=== PATIENT | female | born 2005 | race Caucasian/White ===

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

== ENCOUNTER 2025-04-09 11:35 | Inpatient (IN) | payer MEDICAID, SELFPAY ==
[2025-04-09] VITALS (63 sets, daily range): BP systolic 114–134; BP diastolic 63–87; PULSE 49–94; RESP 13–20; TEMP 36.3–37.6; O2SAT 97–100; BMI 25.1
--- OUTSIDE RECORDS SUMMARY | 2025-04-09 10:19 | XMS RPT_ITS | CCD ---
Author Organization [facility] Care Team Providers Care Community Engagement Leader Name Role Phone RADHA BARAJAS Attending Unavailable REFERRED, SELF Referring Unavailable CAITLYN BRUNNER Primary Care Unavailable CAITLYN BRUNNER Attending Unavailable REFERRED, SELF Referring Unavailable CAITLYN BRUNNER Primary Care Unavailable Unavailable Primary Care Provider Unavaillópez Haley MOLD CARPENTER, Minda Primary Care UnavailNurys Roberson Attending Unavailable [place] MOLD CARPENTER, [place] Primary Care UnavailJosh Pretty Attending Unavailable Nurys Allan Attending Unavailable [place] MOLD CARPENTER, [place] Primary Care UnavailGINGER Suggs Attending Unavailable WANDA GARDINER Attending Unavailable WANDA GARDINER Attending Unavailable MUMTAZ MORALES Referring Unavailable MUMTAZ MORALES Attending Unavailable KATE CASTANON Attending Unavailable VALERIA, WANDA Attending Unavailable KATE CASTANON Referring Unavailable KATE CASTANON Referring Unavailable KATE CASTANON Attending Unavailable SELF Referring Unavailable DESTINI LANGLEY Attending Unavailable SELF Referring Unavailable Medications Current Medications Medication Drug Class(es) Dates Sig (Normalized) Sig (Original) aspirin 81 mg delayed release oral tablet (15 sources) Platelet Aggregation Inhibitor, Nonsteroidal Anti-inflammatory Drug Start: 12-06-2024 End: 12-06-2024 take 1 tablet by mouth once daily aspirin, enteric coated (ECOTRIN LOW STRENGTH) 81 mg EC tablet Indications: with uncertain dates, antepartum (HCC) Take 1 tablet by mouth once daily. 90 tablet 3 12/06/2024 Active Lwzigdva-Bm-Ubt-Fe -FA tab (14 sources) Start: 12-06-2024 take 1 tablet by mouth once daily Iawgjvwu-Ik-Xvx-F e-FA tab Take 1 tablet by mouth once daily. 30 tablet 4 12/06/2024 Active Problems Active Problems Problem Classification Problem Date Documented Da te Episodic/Chronic Bacterial infection; unspecified site (7 sources) Bacteria present; Translations: [Streptococcus, group B, as the cause of diseases classified elsewhere] Onset: 03-23-2025 03-23-2025 Episodic Cardiac and circulatory congenital anomalies (19 sources) Muscular ventricular septum defect ; Translations: [Ventricular septal defect] Onset: 12-15-2024 12-15-2024 Chronic Immunizations and screening for infectious disease (1 source) Vaccination needed; Translations: [Encounter for immunization] 01-25-2025 Episodic Other complications of ; puerperium affecting management of mother (2 sources) Abnormality of heart; Translations: [Ventricular septal defect (VSD) of fetus in [place] , antepartum] 12-14-2024 Episodic Other complications of ; puerperium affecting management of mother (1 source) Suspected disorder; Translations: [Maternal care for (suspected) abnormality and damage, unspecified, not applicable or unspecified] 01-11-2025 Episodic Other complications of ; puerperium affecting management of mother (1 source) Maternal care for (suspected) abnormality and damage, unspecified, not applicable or unspecified; Translations: [Suspected anomaly, antepartum, single or unspecified fetus (HCC)] Onset: 03-02-2025 Episodic Other complications of (20 sources) High risk ; Translations: [Supervision of other high risk pregnancies, second trimester] Onset: 12-06-2024 12-06-2024 Episodic Other complications of (2 sources) Teenage ; Translations: [Supervision of other high risk pregnancies, second trimester] 12-06-2024 Episodic Other complications of (1 source) Injury, poisoning and certain other consequences of external causes complicating , second trimester; Translations: [Injury, poisoning and certain other consequences of external causes complicating , second trimester] Onset: 12-23-2024 Episodic Other complications of (5 sources) Uterine size for dates discrepancy; Translations: [Uterine size-date discrepancy, third trimester] 03-21-2025 Episodic Other complications of (1 source) Supervision of high risk , unspecified, third trimester; Translations: [Supervision of high risk in third trimester (HCC)] Onset: 03-23-2025 Episodic Other complications of (1 source) Uterine size-date discrepancy, third trimester; Translations: [Uterine size-date discrepancy, third trimester ([facility])] Onset: 03-30-2025 Episodic Other complications of (1 source) Supervision of other high risk pregnancies, second trimester; Translations: [High risk teen in second trimester ([facility])] Onset: 01-25-2025 Episodic Other screening for suspected conditions (not mental disorders or infectious disease) (4 sources) Patient encounter status; Translations: [Encounter for screening for malformations] Onset: 01-25-2025 12-14-2024 Episodic Residual codes; unclassified (1 source) Gestation period, 21 weeks; Translations: [21 weeks gestation of ] 12-06-2024 Episodic Residual codes; unclassified (2 sources) Gestation period, 22 weeks; Translations: [22 weeks gestation of ] 12-14-2024 Episodic Residual codes; unclassified (1 source) Gestation period, 28 weeks; Translations: [28 weeks gestation of ] 01-25-2025 Episodic Residual codes; unclassified (1 source) 22 weeks gestation of ; Translations: [22 weeks gestation of ([facility])] Onset: 03-01-2025 Episodic Residual codes; unclassified (1 source) Gestation period, 35 weeks; Translations: [35 weeks gestation of ] 03-16-2025 Episodic Residual codes; unclassified (3 sources) Gestation period, 36 weeks; Translations: [36 weeks gestation of ] 03-21-2025 Episodic Residual codes; unclassified (1 source) Gestation period, 37 weeks; Translations: [37 weeks gestation of ] 03-30-2025 Episodic Residual codes; unclassified (1 source) 37 weeks gestation of ; Translations: [37 weeks gestation of ([facility])] Onset: 03-30-2025 Episodic Residual codes; unclassified (1 source) 36 weeks gestation of ; Translations: [36 weeks gestation of ([facility])] Onset: 03-22-2025 Episodic Residual codes; unclassified (1 source) 35 weeks gestation of ; Translations: [35 weeks gestation of ([facility])] Onset: 03-16-2025 Episodic Residual codes; unclassified (1 source) 33 weeks gestation of ; Translations: [33 weeks gestation of ([facility])] Onset: 03-02-2025 Episodic Residual codes; unclassified (1 source) Gestation period, 38 weeks; Translations: [38 weeks gestation of ] 04-08-2025 Episodic Unclassified (1 source) Ventricular septal defect (VSD) of fetus in [place] , antepartum ([facility]); Translations: [Ventricular septal defect (VSD) of fetus in [place] , antepartum ([facility])] Onset: 03-01-2025 Past or Other Problems Problem Classification Problem Date Documented Da te Episodic/Chronic Administrative/social admission (1 source) Person with feared health complaint in whom no diagnosis is made; Translations: [Person with feared health complaint in whom no diagnosis is made] Onset: 07-08-2024 Episodic Other complications of (17 sources) Late entry into care; Translations: [Supervision of with insufficient care, unspecified trimester] Onset: 12-06-2024 12-06-2024 Episodic Other complications of (13 sources) Rubella non-immune; Translations: [Supervision of other high risk pregnancies, unspecified trimester] Onset: 12-08-2024 12-08-2024 Episodic Other complications of (1 source) Supervision of with insufficient care, unspecified trimester; Translations: [Late care ([facility])] Onset: 12-06-2024 Episodic Other and delivery including normal (3 sources) with uncertain dates; Translations: [Encounter for supervision of normal , unspecified, unspecified trimester] Onset: 12-14-2024 12-06-2024 Episodic Residual codes; unclassified (1 source) 21 weeks gestation of ; Translations: [21 weeks gestation of ] Onset: 12-06-2024 Episodic Sprains and strains (1 source) Strain of muscle, fascia and tendon of lower back, initial encounter; Translations: [Strain of muscle, fascia and tendon of lower back, initial encounter] Onset: 06-28-2024 Episodic Unclassified (1 source) Patient encounter status 12-14-2024 Results Test Name Value Interpretation Reference Range Facil ity URINE OB DIP B/Oon 5 Glucose Ql (U) Negative Neg mg/dL [facility] Interpretation and review of laboratory results Normal [facility] Protein.monoclonal (U) [Mass/Vol] trace Neg mg/dL [facility] URINE OB DIP B/Oon 5 Glucose Ql (U) Negative Neg mg/dL [facility] Protein.monoclonal (U) [Mass/Vol] trace Neg mg/dL [facility] Examination level ultrasound on 03-22-2025 [facility] Radiology Study observation (narrative) [facility] ROUTINE, GROUP B ST REPTOCOCCUS BY PCRon 03-21-2025 ROUTINE, GROUP B STREPTOCOCCUS BY PCR Detected Abnormal [facility] Comment on above: Performed By: #### G BPCR ####[facility] LABCLIA [id number] [address] [place] URINE OB DIP B/Oon 5 Glucose Ql (U) Negative Neg mg/dL [facility] Interpretation and review of laboratory results Normal [facility] Protein.monoclonal (U) [Mass/Vol] Negative Neg mg/dL [facility] URINE OB DIP B/Oon 5 Glucose Ql (U) Negative Neg mg/dL [facility] Interpretation and review of laboratory results Normal [facility] Protein.monoclonal (U) [Mass/Vol] Negative Neg mg/dL [facility] CNPNon 03-08-2025 CNPN Telephone (OGFVWE) DAMON GARZA ([id number]) 5 F Date Time Provider Department 03/08/25 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 - Gtybqtot-Ez-Nsj-Fe-FA tab Take 1 tablet by mouth once daily. Problem List As Of Date 03/08/2025 Noted Resolved Encounter for supervision of high risk pregnanc*12/06/2024 Late care [O09.30] 12/06/2024 Rubella non-immune status, antepartum [O09.899,*12/08/2024 Muscular ventricular septal defect (HCC) [Q21.0]12/15/2024 Encounter Status:Closed by DANNA OLIVERA on 03/08/25 [facility] 03-01-2025 GABRIELLAN Telephone (OBGYWM) DAMON GARZA ([id number]) 5 F Date Time Provider Department 03/01/25 DESTINI LANGLEY During your visit today, we recorded the following information about you: Martha Araujo RN 03/01/2025 1:11 PM Signed [facility] To KJ to sign. CLAIR Paulino Jennifer, RN 03/04/2025 11:31 AM Signed Faxed. Natalya Pruitt RN Allergies As of Date: 03/01/2025 (No Known Allergies) Date Reviewed: 01/25/2025 Reviewed by: Kayden Acevedo MA - Fully Assessed Reason for Visit: Breast Pump [Other] Prescriptions as of 03/04/2025 - aspirin, enteric coated (ECOTRIN LOW STRENGTH) 81 mg EC tablet Take 1 tablet by mouth once daily. - Vosxistp-Dy-Yxe-Fe-FA tab Take 1 tablet by mouth once daily. Problem List As Of Date 03/01/2025 Noted Resolved Encounter for supervision of high risk pregnanc*12/06/2024 Late care [O09.30] 12/06/2024 Rubella non-immune status, antepartum [O09.899,*12/08/2024 Muscular ventricular septal defect [Q21.0] 12/15/2024 Encounter Status:Closed by NATALYA PRUITT on 03/04/25 Normal [facility] FETALon 03-01-2025 + - -------+-+ Pediatric Cardiology Echocardiogram Report + -------+-+ NAME: DAMON GARZA : 2005 PT ID#: [id number] Age: 19 years Sex: F STUDY DATE: 03/01/2025 12:54:22 PM PRETTY: 04/17/2025 GA: [id number] Image Quality: The images were of adequate diagnostic quality. Referring Physician: Alberto Finch Diagnosing Physician: Ginger Soriano Russian Language Professor: Amy Quinones [facility] 2nd Russian Language Professor: Diagnosis: O35.5OP6Lrdldbgyh abnormality and damage, single fetus or unspecified Procedure Code: 54090, 98933, 66152 Echo, Complete (w/Doppler and color) Exam Location: [facility] (). Indications: Evaluate cardiac anatomy and function Color Doppler was utilized to interrogate the cardiac valves assessed. Spectral Doppler was utilized to determine the flow velocities and pressure gradients reported in this exam. History: Suspected VSD Parameters: Single/Multi: [place] Position: position is cephalic Biometry: Biometry Table: Biparietal Diameter 7.67 cm Abdominal Circumference 27.17 cm Femur Length 6.21 cm Estimated Weight 1668.90 g Vessels: Three-vessel umbilical cord is present. Umbilical artery flow Doppler is normal. Umbilical venous flow Doppler is normal. Ductus Venosus Doppler is normal. Cerebral Artery Doppler is normal. UA S/D 2.4 UA PI 0.83 MCA PI 2.14 Rate and Rhythm: Normal heart rate and rhythm. HR 131 bpm Mechanical OR 93 ms Segmental Anatomy, Cardiac Position and Situs: The segmental anatomy and situs are normal. Normal visceral situs. The heart position is within the left hemithorax (levo position). Levocardia (apex to the left). The aorta is to the right of the pulmonary artery. Segmental anatomy is S,D,S. Systemic Veins: Right superior vena cava is right sided and drains normally to the right atrium. The inferior vena cava is right sided and inserts normally into the right atrium. Pulmonary Veins: At least one pulmonary vein on each side drains to the left atrium. Atria: The right atrium is normal in size. The left atrium is normal in size. Widely patent foramen ovale with normal intrauterine right to left flow. Tricuspid Valve: The tricuspid valve is normal. Tricuspid valve inflow Doppler is biphasic. There is no tricuspid valve regurgitation. Right Ventricle: There is qualitatively normal right ventricular size and wall thickness with normal systolic function. Mitral Valve: The mitral valve is normal. There is no mitral valve regurgitation. Mitral valve inflow Doppler is biphasic. Left Ventricle: Normal left ventricular size and wall thickness with normal systolic function. VSD: There is a suggestion of a very small mid-muscular VSD; in some of the views it does not appear to completely cross the septum. Conotruncal Anatomy: There is normal conotruncal anatomy. RVOT: There is no right ventricular outflow tract obstruction. Pulmonary Valve: The pulmonary valve is normal. There is no pulmonary valve stenosis. There is no pulmonary valve regurgitation. Pulmonary Arteries: The main and branch pulmonary arteries appear normal. The main pulmonary artery is normal. LVOT: There is no left ventricular outflow tract obstruction. Aortic Valve: The aortic valve is normal with no stenosis and no regurgitation. Aorta: Aortic arch is widely patent. Ductus Arteriosus: Ductal arch is widely patent with normal intrauterine right to left flow. Pericardium: There is no pericardial effusion. Measurements: 2D: Z-Score Aortic annulus 6.5 mm 0.21 MV annulus 10.8 mm 1.42 Pulmonary annulus 7.4 mm -0.51 TV annulus 11.2 mm 0.42 Summary 1. There is a suggestion of a very small mid-muscular VSD; in some of the views it does not appear to completely cross the septum. 2. Normal left ventricular size and wall thickness with normal systolic function. 3. Qualitatively normal right ventricular size and wall thickness with normal systolic function. 4. Aortic arch is widely patent. 5. Ductal arch is widely patent with normal intrauterine right to left flow. 6. Normal heart rate and rhythm and normal Dopplers. 7. No pericardial effusion. The results and limitations of the echocardiogram and echocardiography in general, including the inability to exclude ASDs, some VSDs, minor valvar abnormalities, partial anomalous pulmonary venous return, persistent patent ductus arteriosus, and coarctation of the aorta, were explained to the patient. _ Ginger Soriano DO *Electronically signed on 03/01/2025 at 2:16:13 PM Final CC [employer] Image : [id number] See Link below for Image Normal [facility] CBC W Auto Differential pane l (Bld)on 01-25-2025 Basophils (Bld) [#/Vol] 0.05 10*3/uL Normal <0.11 [facility] Comment on above: Order Comment: Speci men Type: BLOOD SPECIMENOrdering Facility: [facility] Address: [address] [place] [address] Performed By: #### 5 7021-8 ####[facility] [id number] [place] [address] [place] Basophils/100 WBC (Bld) 0.6 % Normal [facility] Comment on above: Order Comment: Speci men Type: BLOOD SPECIMENOrdering Facility: [facility] Address: [address] [place] [address] Performed By: #### 5 7021-8 ####[facility] [id number] [place] [address] [place] Differential cell count method Nom (Bld) Auto Normal [facility] Comment on above: Order Comment: Speci men Type: BLOOD SPECIMENOrdering Facility: [facility] Address: [address] [place] [address] Performed By: #### 5 7021-8 ####[facility] [id number] [place] [address] [place] Eosinophils (Bld) [#/Vol] 0.07 10*3/uL Normal <0.46 [facility] Comment on above: Order Comment: Speci men Type: BLOOD SPECIMENOrdering Facility: [facility] Address: [address] [place] [address] Performed By: #### 5 7021-8 ####[facility] [id number] [place] [address] [place] Eosinophils/100 WBC (Bld) 0.8 % Normal [facility] Comment on above: Order Comment: Speci men Type: BLOOD SPECIMENOrdering Facility: [facility] Address: [address] [place] [address] Performed By: #### 5 7021-8 ####[facility] [id number] [place] [address] [place] Erythrocyte distribution width (RBC) [Ratio] 12.0 % Normal 11.5-15.0 [facility] Comment on above: Order Comment: Speci men Type: BLOOD SPECIMENOrdering Facility: [facility] Address: [address] [place] [address] Performed By: #### 5 7021-8 ####[facility] [id number] [place] [address] [place] Hematocrit (Bld) [Volume fraction] 32.6 % Low 36.0-46.0 [facility] Comment on above: Order Comment: Speci men Type: BLOOD SPECIMENOrdering Facility: [facility] Address: [address] [place] [address] Performed By: #### 5 7021-8 ####[facility] [id number] [place] [address] [place] Hemoglobin (Bld) [Mass/Vol] 11.3 g/dL Low 11.5-15.5 [facility] Comment on above: Order Comment: Speci men Type: BLOOD SPECIMENOrdering Facility: [facility] Address: [address] [place] [address] Performed By: #### 5 7021-8 ####[facility] [id number] [place] [address] [place] Immature granulocytes (Bld) [#/Vol] 0.04 10*3/uL Normal <0.10 [facility] Comment on above: Order Comment: Speci men Type: BLOOD SPECIMENOrdering Facility: [facility] Address: [address] [place] [address] Performed By: #### 5 7021-8 ####[facility] [id number] [place] [address] [place] Immature granulocytes/100 WBC (Bld) 0.5 % Normal [facility] Comment on above: Order Comment: Speci men Type: BLOOD SPECIMENOrdering Facility: [facility] Address: [address] [place] [address] Performed By: #### 5 7021-8 ####[facility] [id number] [place] [address] [place] Lymphocytes (Bld) [#/Vol] 1.73 10*3/uL Normal 1.00-4.00 [facility] Comment on above: Order Comment: Speci men Type: BLOOD SPECIMENOrdering Facility: [facility] Address: [address] [place] [address] Performed By: #### 5 7021-8 ####[facility] [id number] [place] [address] [place] Lymphocytes/100 WBC (Bld) 20.1 % Normal [facility] Comment on above: Order Comment: Speci men Type: BLOOD SPECIMENOrdering Facility: [facility] Address: [address] [place] [address] Performed By: #### 5 7021-8 ####[facility] [id number] [place] [address] [place] MCH (RBC) [Entitic mass] 29.6 pg Normal 26.0-34.0 [facility] Comment on above: Order Comment: Speci men Type: BLOOD SPECIMENOrdering Facility: [facility] Address: [address] [place] [address] Performed By: #### 5 7021-8 ####[facility] [id number] [place] [address] [place] MCHC (RBC) [Mass/Vol] 34.7 g/dL Normal 30.5-36.0 [facility] Comment on above: Order Comment: Speci men Type: BLOOD SPECIMENOrdering Facility: [facility] Address: [address] [place] [address] Performed By: #### 5 7021-8 ####[facility] [id number] [place] [address] [place] MCV (RBC) [Entitic vol] 85.3 fL Normal 80.0-100.0 [facility] Comment on above: Order Comment: Speci men Type: BLOOD SPECIMENOrdering Facility: [facility] Address: [address] [place] [address] Performed By: #### 5 7021-8 ####[facility] [id number] [place] [address] [place] Monocytes (Bld) [#/Vol] 0.41 10*3/uL Normal <0.87 [facility] Comment on above: Order Comment: Speci men Type: BLOOD SPECIMENOrdering Facility: [facility] Address: [address] [place] [address] Performed By: #### 5 7021-8 ####[facility] [id number] [place] [address] [place] Monocytes/100 WBC (Bld) 4.8 % Normal [facility] Comment on above: Order Comment: Speci men Type: BLOOD SPECIMENOrdering Facility: [facility] Address: [address] [place] [address] Performed By: #### 5 7021-8 ####[facility] [id number] [place] [address] [place] Neutrophils (Bld) [#/Vol] 6.31 10*3/uL Normal 1.45-7.50 [facility] Comment on above: Order Comment: Speci men Type: BLOOD SPECIMENOrdering Facility: [facility] Address: [address] [place] [address] Performed By: #### 5 7021-8 ####[facility] [id number] [place] [address] [place] Neutrophils/100 WBC (Bld) 73.2 % Normal [facility] Comment on above: Order Comment: Speci men Type: BLOOD SPECIMENOrdering Facility: [facility] Address: [address] [place] [address] Performed By: #### 5 7021-8 ####[facility] [id number] [place] [address] [place] Nucleated RBC (Bld) [#/Vol] 10*3/uL Normal <0.01 [facility] Comment on above: Order Comment: Speci men Type: BLOOD SPECIMENOrdering Facility: [facility] Address: [address] [place] [address] Performed By: #### 5 7021-8 ####[facility] [id number] [place] [address] [place] Nucleated RBC/100 WBC (Bld) [Ratio] 0.0 /100 WBC Normal [facility] Comment on above: Order Comment: Speci men Type: BLOOD SPECIMENOrdering Facility: [facility] Address: [address] [place] [address] Performed By: #### 5 7021-8 ####[facility] HOSPITALNARDALisa [id number] [place] [address] [place] Platelet mean volume (Bld) [Entitic vol] 9.4 fL Normal 9.0-12.7 [facility] Comment on above: Order Comment: Speci men Type: BLOOD SPECIMENOrdering Facility: [facility] Address: [address] [place] [address] Performed By: #### 5 7021-8 ####[facility] [id number] [place] [address] [place] Platelets (Bld) [#/Vol] 296 10*3/uL Normal 150-400 [facility] Comment on above: Order Comment: Speci men Type: BLOOD SPECIMENOrdering Facility: [facility] Address: [address] [place] [address] Performed By: #### 5 7021-8 ####[facility] POINTNARDALILYA [id number] [place] [address] [place] RBC (Bld) [#/Vol] 3.82 10*6/uL Low 3.90-5.20 [facility] Comment on above: Order Comment: Speci men Type: BLOOD SPECIMENOrdering Facility: [facility] Address: [address] [place] [address] Performed By: #### 5 7021-8 ####[facility] HOS[facility]ITALNCLI [id number] [place] [address] [place] WBC (Bld) [#/Vol] 8.61 10*3/uL Normal 3.70-11.00 [facility] Comment on above: Order Comment: Speci men Type: BLOOD SPECIMENOrdering Facility: [facility] Address: [address] [place] [address] Performed By: #### 5 7021-8 ####[facility] [id number] [place] [address] [place] GESTATIONAL GLUCOSE SCREEN, 1-HOUR, 50 GRAM, NON-FASTINGon 01-25-2025 Glucose [Mass/Vol] 100 mg/dL Normal 74-134 [facility] Comment on above: Order Comment: Tom avendaño Type: BLOOD SPECIMENOrdering Facility: [facility] Address: [address] [place] [address] Result Comment: [facility] Congress of Obstetricians and Gynecologists (David/Tiffany) guidelines state a gestational diabetes mellitus positive screen is made, in women not previously diagnosed with overt diabetes, when the 1 hr plasma glucose level is equal to or above 140 mg/dL. The [facility] Studio Data Analyst and Women's [facility] Conrad recommends a 135 mg/dL cutoff. Performed By: #### G LTGST ####[facility] [id number] [place] [address] [place] Reagin and Treponema pallidu m IgG and IgM [Interp]on 01-25-2025 T. pallidum IgG+IgM IA Ql (S) Non-Reactive Normal Nonreactive [facility] Comment on above: Order Comment: Speci men Type: BLOOD SPECIMENOrdering Facility: [facility] Address: [address] [place] [address] Performed By: #### 7 3752-8 ####[facility] LABCLIA [id number] [place] [address] [place] Reagin+T pallidum IgG+IgM Se rPl-Impon 01-25-2025 Reagin and Treponema pallidum IgG and IgM [Interp] Cannot exclude recent Treponemal infection if specimen collected within 7-10 days after appearance of suspect lesions or 2-3 weeks after an exposure. Clinical correlation is required. 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 - Xgbinpuc-Yn-Hyg-Fe-FA tab Take 1 tablet by mouth once daily. Problem List As Of Date 01/13/2025 Noted Resolved Encounter for supervision of high risk pregnanc*12/06/2024 Late care [O09.30] 12/06/2024 Rubella non-immune status, antepartum [O09.899,*12/08/2024 Muscular ventricular septal defect [Q21.0] 12/15/2024 Encounter Status:Closed by DANNA OLIVERA on 01/13/25 Normal [facility] Examination level ultrasound on 12-14-2024 Indication Standard anatomic survey Impression The patient is referred for a standard anatomic survey. - Single, live, intrauterine . - biometry is consistent with the established gestational age. - Muscular ventricular septal defect (VSD) is seen - No other malformations were visualized on a complete standard anatomic survey. - The amniotic fluid volume is normal amount. - The placenta is posterior. - The Transabdominal cervical length measures 32.8 mm with no evidence of funneling or other dynamic changes. - Not all structural malformations can be detected by ultrasound examination. Recommendations echo. If VSD is confirmed, will refer to [facility] for coordination of care Maternal Assessment Height 163 cm Height (ft) 5 ft Height (in) 4 in Physical Exam Initial weight (lb) 126 lb Initial BMI 21.63 kg/m Method Transabdominal ultrasound examination. View: Adequate visualization Drummond . Number of fetuses: 1 Dating GA by prior assessment 22 w + 2 d PRETTY by prior assessment: 04/17/2025 Ultrasound examination on: 12/14/2024 GA by U/S based upon: AC, BPD, Femur, HC GA by U/S 21 w + 4 d PRETTY by U/S: 04/22/2025 Assigned: based on stated PRETTY, selected on 12/14/2024 Assigned GA 22 w + 2 d Assigned PRETTY: 04/17/2025 General Evaluation Cardiac activity present. FHR 135 bpm. movements: present. Presentation: breech Placenta: Placental site: posterior Umbilical cord: Cord vessels: 3 vessel cord. Insertion site: normal insertion Amniotic fluid: Amount of AF: normal amount. MVP 3.7 cm Growth Overview Exam date GA BPD (mm) HC (mm) AC (mm) FL (mm) HL (mm) EFW (g) 12/14/2024 22w 2d 49.1 6% 192.4 27% 164.1 18% 37.9 63% 36.9 67% 443 18% Biometry Standard BPD 49.1 mm 20w 6d 6% Hadlock OFD 70.1 mm 21w 5d 51% Nicolaides HC 192.4 mm 21w 3d 27% Rozina Cerebellum tr 23.7 mm 21w 6d 61% Hill Nuchal fold 5.8 mm AC 164.1 mm 21w 3d 18% Hadlock Femur 37.9 mm 22w 2d 63% Rozina Humerus 36.9 mm 22w 6d 67% Rozina EFW 443 g 21w 4d 18% Hadlock EFW (lb) 1 lb EFW (oz) 0 oz EFW by: Hadlock (HC-AC-FL) Extended Machine Welt Butter 6.9 mm CM 4.3 mm 14% Nicolaides Nasal bone 7.8 mm Extremities / Bony Struc FL / HC 0.20 Other Structures FHR 135 bpm Anatomy Cranium: normal Lateral ventricles: normal Choroid plexus: normal Midline falx: normal Cavum septi pellucidi: normal Cerebellum: normal Cisterna magna: normal Head / Neck Vermis: Normal but not required for a standard anatomy exam Neck: Normal but not required for a standard anatomy exam Nuchal fold: Normal but not required for a standard anatomy exam Lips: normal Profile: Normal but not required for a standard anatomy exam Nose: Normal but not required for a standard anatomy exam Face Maxilla: Normal but not required for a standard anatomy exam Mandible: Normal but not required for a standard anatomy exam Orbits: Normal but not required for a standard anatomy exam Lens: Normal but not required for a standard anatomy exam 4-chamber view: abnormal RVOT view: normal LVOT view: normal 3-vessel view: normal 1-jwejux-cgazdeu view: normal Heart / Thorax 4-chamber view: VSD Situs: situs solitus (normal) Aortic arch view: Normal but not required for a standard anatomy exam SVC: Normal but not required for a standard anatomy exam IVC: Normal but not required for a standard anatomy exam Cardiac axis: normal Rt lung: Normal but not required for a standard anatomy exam Lt lung: Normal but not required for a standard anatomy exam Diaphragm: Normal but not required for a standard anatomy exam Cord insertion: normal Stomach: normal Kidneys: normal Bladder: normal Genitals: normal Abdomen Abdom. wall: normal Cervical spine: normal Thoracic spine: normal Lumbar spine: normal Sacral spine: normal Arms: normal Hands: normal Legs: normal Feet: normal Rt upper arm: normal Rt forearm: normal Rt hand: normal Rt fingers: normal Lt upper arm: normal Lt forearm: normal Lt hand: normal Lt fingers: normal Rt upper leg: normal Rt lower leg: normal Rt foot: normal Lt upper leg: normal Lt lower leg: normal Lt foot: normal sex: female sex: normal Wants to know sex: yes Maternal Structures Uterus / Cervix Uterus: Visualized Cervix: Visualized Approach: Transabdominal Cervical length 32.8 mm Funneling: Funneling absent Cerclage: Cervical cerclage absent Ovaries / Tubes / Adnexa Rt ovary: Visualized Lt ovary: Visualized Performed By: Sarah Lane RDMS Read By: Alberto Finch M.D., Ph.D. MATERNAL MEDICINE [facility] Radiology Study observation (narrative) [facility] Urine Cultureon 12-14-2024 URC #1, 2 Below infectio n level. Urine Culture Mixed Gram Positive Organisms [place] Count 1000-10,000 MIXC Mixed contaminants. Submit a new specimen if indicated. STAGA Hauula Count <1000 Normal [facility] Comment on above: Performed By: #### M 100.2200 #### [facility] [address], [address] Emergency Department Summary on 12-11-2024 Emergency Department Summary [facility] Medical Records Department [address] [place] [address] Emergency Department Summary 12/11/24 MR#: [id number] Acct: [id number] Name: DAMON GARZA Rep #: [id number] : 2005 19 From: Nurys Allan DO PCP: JOSÉ MIGUEL Ch Status:DEP ER Location: ED HPI History of Present Illness Chief Complaint: Back Narrative Narrative: Patient is a 19-year-old female, patient is currently 21 weeks . This is the patient's first , last menstrual cycle was in June. Present to the emergency department 2 to 3 days of right sided back pain. Pay states when she is laying still it is not there however when she gets up and moves it is worse. Patient states that she has a history of scoliosis a not sure this is the reason. She denies any urinary symptoms, vaginal symptoms, denies any abdominal pain. Denies any fever chills, blood in stool or urine. PFSH PFSH Home Medications ???Medication ???Instructions ???Recorded ???Last Taken ???Type naproxen 500 mg tablet (Naprosyn) 500 mg PO BID PRN pain #20 tabs 0 05/30/24 Unknown Rx cephalexin 500 mg capsule 500 mg PO TID 7 days #21 caps 11/06 Unknown Rx Allergy/AdvReac Type Severity Reaction Status Date / Time No Known Allergies Allergy Verified 06/18/24 22:43 Social History Smoking Status: Current some day smoker tobacco type: e-cigarettes ROS ROS ED ROS Narrative Constitutional: Negative for fever, chills, weight loss, weakness Eyes: Negative for vision loss, vision change, double vision ENT: Negative for any sore throat, ear pain, congestion Cardiovascular: Negative for any chest pain, tightness, palpitations Respiratory: Negative for any cough, sputum production, hemoptysis, dyspnea, dyspnea on exertion, orthopnea Gastrointestinal: Negative for any abdominal pain, nausea, vomiting, diarrhea, constipation, blood in stool, blood in vomit : Negative for any urinary frequency, dysuria, retention, blood in urine Muscle skeletal: Negative for any neck pain. Positive for back pain Neurological: Negative for any headache, syncope, dizziness Skin: Negative for any rashes, itching, abrasions, lacerations Psychiatric: Negative for any depression, anxiety, stress, suicidal ideation, homicidal ideation Hematologic: Negative for any excessive bruising, easy bleeding EXAM Physical Exam Narrative Exam Narrative: Vital signs reviewed. HEET: Head normocephalic atraumatic, TMs clear bilaterally. Posterior pharynx is clear, moist mucous membranes. Nares clear bilaterally. Neck: Supple with no lymphadenopathy or tenderness. No signs of meningismus. Cardiac: Regular rate and rhythm no murmurs gallops or rubs, equal peripheral pulses bilaterally. Respiratory: Lungs clear to auscultation bilaterally. No chest tenderness. Abdomen: Soft, nontender, nondistended. No abdominal bruit or pulsatile masses. No hepatosplenomegaly Extremities: No peripheral edema, no signs of gross trauma or deformity. Active full range of motion of all extremities. Neuro: Cranial nerves II through XII intact, no focal neurological deficits. Skin: Clean dry and intact with no rash, purpura, petechiae, vesicles or pustules. Backs/flank: No CVA tenderness, no midline spinal tenderness, no deformity. Most of the pain is to the right lower lumbar spine. There is no significant pain on palpation. However when patient does flex or extend this does cause pain. When the patient is laying flat and still she does not have any pain. This does not wrap around to the front. There is no abdominal pain. Psych: Normal mood and affect. No SI, HI or acute psychosis. Const Vital Signs: 12/11/24 11:51 Temperature 97.3 F L Temperature Source Temporal Pulse Rate 100 Respiratory Rate 18 Blood Pressure 114/73 Blood Pressure Mean 86 Pulse Ox 100 Oxygen Delivery Method Room Air Physical Exam Const Vital Signs: 12/11/24 11:51 Temperature 97.3 F L Temperature Source Temporal Pulse Rate 100 Respiratory Rate 18 Blood Pressure 114/73 Blood Pressure Mean 86 Pulse Ox 100 Oxygen Delivery Method Room Air MDM MDM Lab Data Labs: Laboratory Results - last 24 hr 12/11/24 12:15 Urine Color Yellow Urine Clarity Cloudy Urine pH 8.0 Ur Specific [place] 1.010 Urine Protein 15 H Urine Glucose (UA) Normal Urine Ketones 15 H Urine Occult Blood Negative Urine Nitrite Negative Urine Bilirubin Negative Urine Urobilinogen Normal Ur Leukocyte Esterase 500 H Urine RBC 0-5 SEEN Urine WBC 10-25 SEEN Ur Squamous Epith Cells 0-5 SEEN Urine Bacteria 2+ Urine Mucus RARE Treatment and Re-Evaluation :: Differential diagnosis (more content not included)... Normal [facility] Urinalysis, Completeon 12-11 BACTERIA 2+ /hpf Normal None Seen [facility] Comment on above: Order Comment: DELMI CTOR TO SPECIFY Performed By: #### L 400.0001 #### [facility] [address] [place], [place], [id number] EPI,SQUAMOUS 0-5 SEEN Normal 5-10 [facility] Comment on above: Order Comment: DELMI CTOR TO SPECIFY Performed By: #### L 400.0001 #### [facility] [address] [place], [place], [id number] Mucus Ql (Urine sed) RARE Normal [facility] Comment on above: Order Comment: DELMI CTOR TO SPECIFY Performed By: #### L 400.0001 #### [facility] [address] [place], [address] RBC 0-5 SEEN Normal 0-5 [facility] Comment on above: Order Comment: DELMI CTOR TO SPECIFY Performed By: #### L 400.0001 #### [facility] [address] [place], [place], [address] WBC 10-25 SEEN Normal 0-5 [facility] Comment on above: Order Comment: DELMI CTOR TO SPECIFY Performed By: #### L 400.0001 #### [facility] [address] [place], [place], [address] CNPNon [facility]-07-2024 [id number] DAMON [facility]AR[facility] ([id number]) 5 F Date Time Provider Department 12/07/24 NATALYA MENDOZA [id number] During your visit today, we recorded the following information about you: Natalya Mendoza RN 12/07/2024 1:47 PM Signed 1st risk assessment form submitted 12/07/2024. Natalya Mendoza RN Allergies As of Date: 12/07/2024 (Not on File) Date Reviewed: 12/06/2024 Reviewed by: Kayden Acevedo MA - Fully Assessed Reason for Visit: Tip Cutter - Other [1522] Cmt: PRAF Prescriptions as of 12/07/2024 - aspirin, enteric coated (ECOTRIN LOW STRENGTH) 81 mg EC tablet Take 1 tablet by mouth once daily. - Ugdnksus-Ts-Pka-Fe-FA tab Take 1 tablet by mouth once daily. Problem List As Of Date 12/07/2024 Noted Resolved Encounter for supervision of high risk pregnanc*12/06/2024 Late care [O09.30] 12/06/2024 Encounter Status:Closed by NATALYA MENDOZA on 12/07/24 [facility] B[facility] Ur Culton Bacteria identified Cx Nom (U) ORGANISM ID: 1 10,000 -<50,000 CFU/ml Normal urogenital danielle Normal [facility] Comment on above: Performed By: #### 6 30-4 ####[facility] LABCLIA [id number] [place] [address] [place] C. trachomatis+N. gonorrhoea e DNA KATELIN+probe Ql (Unsp spec)on 12-06-2024 C. trachomatis rRNA KATELIN+probe Ql (Unsp spec) Not detected Normal Not detected [facility] Comment on above: Order Comment: Speci men Type: SWABOrdering Facility: [facility] Address: [address] [place] [address] Performed By: #### 3 6902-5 ####[facility] CENTERIA [id number] [place] [address] [place] N. gonorrhoeae rRNA KATELIN+probe Ql (Unsp spec) Not detected Normal Not detected [facility] Comment on above: Order Comment: Speci men Type: SWABOrdering Facility: [facility] Address: [address] [place] [address] Performed By: #### 3 6902-5 ####[facility] [id number] [place] [address] [place] CBC W Auto Differential pane l (Bld)on 12-06-2024 Basophils (Bld) [#/Vol] 0.03 10*3/uL Normal <0.11 [facility] Comment on above: Order Comment: Speci men Type: BLOOD SPECIMENOrdering Facility: [facility] Address: [address] [place] [address] Performed By: #### 5 7021-8 ####[facility] ANGIECLINTON MEMORIAL HOSPITALLisa [id number] [place] [id number] [place] Basophils/100 WBC (Bld) 0.4 % Normal [facility] Comment on above: Order Comment: Speci men Type: BLOOD SPECIMENOrdering Facility: [facility] Address: [address] [place] [address] Performed By: #### 5 7021-8 ####[facility] [id number] [place] [address] [place] Differential cell count method Nom (Bld) Auto Normal [facility] Comment on above: Order Comment: Speci men Type: BLOOD SPECIMENOrdering Facility: [facility] Address: [address] [place] [address] Performed By: #### 5 7021-8 ####[facility]ITALNCLIA [id number] [place] [address] [place] Eosinophils (Bld) [#/Vol] 0.07 10*3/uL Normal <0.46 [facility] Comment on above: Order Comment: Speci men Type: BLOOD SPECIMENOrdering Facility: [facility] Address: [address] [place] [address] Performed By: #### 5 7021-8 ####[facility] HOSPITALLIA [id number] [place] [address] [place] Eosinophils/100 WBC (Bld) 0.9 % Normal [facility] Comment on above: Order Comment: Speci men Type: BLOOD SPECIMENOrdering Facility: [facility] Address: [address] [place] [address] Performed By: #### 5 7021-8 ####[facility] HOSPITALLIA [id number] [place] [address] [place] Erythrocyte distribution width (RBC) [Ratio] 12.4 % Normal 11.5-15.0 [facility] Comment on above: Order Comment: Speci men Type: BLOOD SPECIMENOrdering Facility: [facility] Address: [address] [place] [address] Performed By: #### 5 7021-8 ####[facility]ITALNCLIA [id number] [place] [address] [place] Hematocrit (Bld) [Volume fraction] 36.3 % Normal 36.0-46.0 [facility] Comment on above: Order Comment: Speci men Type: BLOOD SPECIMENOrdering Facility: [facility] Address: [address] [place] [address] Performed By: #### 5 7021-8 ####[facility] SEBRINGLisa [id number] [place] [address] [place] Hemoglobin (Bld) [Mass/Vol] 12.6 g/dL Normal 11.5-15.5 [facility] Comment on above: Order Comment: Speci men Type: BLOOD SPECIMENOrdering Facility: [facility] Address: [address] [place] [address] Performed By: #### 5 7021-8 ####[facility] HOSPITALJC [id number] [place] [address] [place] Immature granulocytes (Bld) [#/Vol] 0.04 10*3/uL Normal <0.10 [facility] Comment on above: Order Comment: Speci men Type: BLOOD SPECIMENOrdering Facility: [facility] Address: [address] [place] [address] Performed By: #### 5 7021-8 ####[facility] HOSPITALLILisa [id number] [place] [address] [place] Immature granulocytes/100 WBC (Bld) 0.5 % Normal [facility] Comment on above: Order Comment: Speci men Type: BLOOD SPECIMENOrdering Facility: [facility] Address: [address] [place] [address] Performed By: #### 5 7021-8 ####[facility]ITALNCLIA [id number] [place] [address] [place] Lymphocytes (Bld) [#/Vol] 1.55 10*3/uL Normal 1.00-4.00 [facility] Comment on above: Order Comment: Speci men Type: BLOOD SPECIMENOrdering Facility: [facility] Address: [address] [place] [address] Performed By: #### 5 7021-8 ####[facility] [id number] [address] [place] [facility] Lymphocytes/100 WBC (Bld) 19.0 % Normal [facility] Comment on above: Order Comment: Speci men Type: BLOOD SPECIMENOrdering Facility: [facility] Address: [address] [place] [address] Performed By: #### 5 7021-8 ####[facility]ITALNC[facility] [id number] [place] [address] [place] MCH (RBC) [Entitic mass] 30.0 pg Normal 26.0-34.0 [facility] Comment on above: Order Comment: Speci men Type: BLOOD SPECIMENOrdering Facility: [facility] Address: [address] [place] [address] Performed By: #### 5 7021-8 ####[facility] [id number] [address] [place] MCHC (RBC) [Mass/Vol] 34.7 g/dL Normal 30.5-36.0 [facility] Comment on above: Order Comment: Speci men Type: BLOOD SPECIMENOrdering Facility: [facility] Address: [address] [place] [address] Performed By: #### 5 7021-8 ####[facility] [id number] [address] [place] MCV (RBC) [Entitic vol] 86.4 fL Normal 80.0-100.0 [facility] Comment on above: Order Comment: Speci men Type: BLOOD SPECIMENOrdering Facility: [facility] Address: [address] [place] [address] Performed By: #### 5 7021-8 ####[facility] [id number] [place] [address] [place] Monocytes (Bld) [#/Vol] 0.33 10*3/uL Normal <0.87 [facility] Comment on above: Order Comment: Speci men Type: BLOOD SPECIMENOrdering Facility: [facility] Address: [address] [place] [address] Performed By: #### 5 7021-8 ####[facility]CL[facility] [id number] [place] [address] [place] Monocytes/100 WBC (Bld) 4.0 % Normal [facility] Comment on above: Order Comment: Speci men Type: BLOOD SPECIMENOrdering Facility: [facility] Address: [address] [place] [address] Performed By: #### 5 7021-8 ####[facility] HOSPITALWNCLIA [id number] [place] [address] [place] Neutrophils (Bld) [#/Vol] 6.13 10*3/uL Normal 1.45-7.50 [facility] Comment on above: Order Comment: Speci men Type: BLOOD SPECIMENOrdering Facility: [facility] Address: [address] [place] [address] Performed By: #### 5 7021-8 ####[facility] [id number] [place] [address] [place] Neutrophils/100 WBC (Bld) 75.2 % Normal [facility] Comment on above: Order Comment: Speci men Type: BLOOD SPECIMENOrdering Facility: [facility] Address: [address] [place] [address] Performed By: #### 5 7021-8 ####[facility] [id number] [place] [address] [place] Nucleated RBC (Bld) [#/Vol] 10*3/uL Normal <0.01 [facility] Comment on above: Order Comment: Speci men Type: BLOOD SPECIMENOrdering Facility: [facility] Address: [address] [place] [address] Performed By: #### 5 7021-8 ####[facility]ITALIGNACIO [id number] [place] [address] [place] Nucleated RBC/100 WBC (Bld) [Ratio] 0.0 /100 WBC Normal [facility] Comment on above: Order Comment: Speci men Type: BLOOD SPECIMENOrdering Facility: [facility] Address: [address] [place] [address] Performed By: #### 5 7021-8 ####[facility] [id number] [place] [address] [place] Platelet mean volume (Bld) [Entitic vol] 9.2 fL Normal 9.0-12.7 [facility] Comment on above: Order Comment: Speci men Type: BLOOD SPECIMENOrdering Facility: [facility] Address: [address] [place] [address] Performed By: #### 5 7021-8 ####[facility] [id number] [place] [address] [place] Platelets (Bld) [#/Vol] 318 10*3/uL Normal 150-400 [facility] Comment on above: Order Comment: Speci men Type: BLOOD SPECIMENOrdering Facility: [facility] Address: [address] [place] [address] Performed By: #### 5 7021-8 ####[facility] H[facility]PITALNARDALIA [id number] [place] [address] [place] RBC (Bld) [#/Vol] 4.20 10*6/uL Normal 3.90-5.20 [facility] Comment on above: Order Comment: Speci men Type: BLOOD SPECIMENOrdering Facility: [facility] Address: [address] [place] [address] Performed By: #### 5 7021-8 ####[facility] [id number] [place] [address] [place] WBC (Bld) [#/Vol] 8.15 10*3/uL Normal 3.70-11.00 [facility] Comment on above: Order Comment: Speci men Type: BLOOD SPECIMENOrdering Facility: [facility] Address: [address] [place] [address] Performed By: #### 5 7021-8 ####[facility] [id number] [place] [address] [place] HBV surface Ag Ser Qlon 11-14 HBV surface Ag Ql (S) Negative Normal Negative [facility] Comment on above: Order Comment: Speci men Type: BLOOD SPECIMENOrdering Facility: [facility] Address: [address] [place] [address] Performed By: #### 7 3752-8, 53477-6, 5195-3 ####[facility] LABCLIA [id number] [place] [address] [place] HCV Ab Ser Qlon 12-06-2024 HCV Ab Ql (S) Negative Normal Negative [facility] Comment on above: Order Comment: Speci men Type: BLOOD SPECIMENOrdering Facility: [facility] Address: [address] [place] [address] Result Comment: The result suggests no evidence of active infection with Hepatitis C virus. Should recent infection be suspected, repeat testing may be considered 4-6 weeks after this draw. Performed By: #### 1 6128-1 ####[facility] LABCLIA [id number] [place] [address] [place] HIV 1+2 Ab IA Qlon 5 HIV 1 and 2 Ab IA.rapid Nom (S/P/Bld) Normal [facility] Comment on above: Order Comment: Speci men Type: BLOOD SPECIMENOrdering Facility: [facility] Address: [address] [place] [address] Result Comment: Test not indicated. Performed By: #### 7 3752-8, 02809-3, 5195-3 ####[facility] LABCLIA [id number] [address] OF [place] HIV 1+2 Ab+HIV1 p24 Ag IA Ql Non-Reactive Normal Nonreactive [facility] Comment on above: Order Comment: Speci men Type: BLOOD SPECIMENOrdering Facility: [facility] Address: [address] [place] [address] Performed By: #### 7 3752-8, 50953-7, 5194-12 ####[facility] LABIA [id number] [address] [place] HIV immunoassay testing algorithm interpretation (S/P/Bld) [Interp] Normal [facility] Comment on above: Order Comment: Speci men Type: BLOOD SPECIMENOrdering Facility: [facility] Address: [address] [place] [address] Result Comment: No e vidence of HIV-1 or HIV-2 infection. Should recent infection be suspected, repeat testing may be considered 2-3 weeks after this draw. [place] Rev. Code 3701.243(E): This information has been disclosed to you from confidential records protected from disclosure by state law. ???You shall make no further disclosure of this information without the specific, written, and informed release of the individual to whom it pertains or as otherwise permitted by state law. A general authorization for the release of medical or other information is not sufficient for the purpose of the release of HIV test results or diagnoses. Performed By: #### 7 3752-8, 47928-1, 5195-3 ####[facility] LABCLIA [id number] [address] [place] HbA1c (Bld)on 12-06-2024 Average glucose Estimated from glycated hemoglobin (Bld) [Mass/Vol] 77 mg/dL Normal [facility] Comment on above: Order Comment: Tom avendaño Type: BLOOD SPECIMENOrdering Facility: [facility] Address: [address] [place] [address] Result Comment: eAG: (Estimated average glucose) is a calculated value from HgbA1c and is denial management representative of the average blood glucose level in the last 2-3 month period. Performed By: #### 5 5454-3 ####[facility] LABCLIA [id number] [address] [place] HbA1c (Bld) [Mass fraction] 4.3 % Normal 4.3-5.6 [facility] Comment on above: Order Comment: Tom avendaño Type: BLOOD SPECIMENOrdering Facility: [facility] Address: [address] [place] [address] Result Comment: Amer [place] Diabetes Association guidelines indicate that patients with HgbA1c in the range 5.7-6.4% are at increased risk for development of diabetes, and intervention by lifestyle modification may be beneficial. HgbA1c greater or equal to 6.5% is considered diagnostic of diabetes. Performed By: #### 5 5454-3 ####[facility] LABCLIA [id number] [place] [address] [place] [id number] PLUSon 12-06-2024 Cell-free DNA./Cell-free DNA.total Dosage of chromosome-specific cfDNA (cfDNA) [Molar fraction] 26% Normal [facility] Comment on above: Order Comment: Sabasi jarocho Type: BLOOD SPECIMENOrdering Facility: [facility] Address: [address] [place] [address] Performed By: #### M AT21 ####[facility] LABCLIA [id number] [place] [address] Chr 13+18+21+X+Y aneuploidy Dosage of chromosome-specific cfDNA Ql (cfDNA) Negative Normal [facility] Comment on above: Order Comment: Speci men Type: BLOOD SPECIMENOrdering Facility: [facility] Address: [address] [place] [address] Performed By: #### M AT21 ####[facility] [place] LABCLIA [id number] [place] [address] Chr 21 trisomy Dosage of chromosome-specific cfDNA Ql (cfDNA) Negative Normal [facility] Comment on above: Order Comment: Speci men Type: BLOOD SPECIMENOrdering Facility: [facility] Address: [address] [place] [address] Performed By: #### M AT21 ####[facility] LABCLIA [id number] [place] [address] Chr X and Y aneuploidy risk Sequencing Ql (cfDNA) [Interp] Not detected Normal [facility] Comment on above: Order Comment: Speci men Type: BLOOD SPECIMENOrdering Facility: [facility] Address: [address] [place] [address] Result Comment: Not Detected Not Detected Performed By: #### M AT21 ####[facility] LABCLIA [id number] [place] [address] Citation Alen (Reference lab test) Comment Normal [facility] Comment on above: Order Comment: Speci men Type: BLOOD SPECIMENOrdering Facility: [facility] Address: [address] [place] [address] Result Comment: 1. P sloan RALPH, et al. Rosy Med. 2012;14(3):296-305. 2. Niraj OVALLES et al. Prenat Diag. 2013;33(6):591-597. 3. Rony C, et al. Clin Chem. 2015 Apr;61(4):608-616. 4. Leticia RALPH et al. Rosy Med. 2011;13(11):913-920. 5. ACOG/SMFM Practice Bulletin No. 226, Jul 2020. Performed By: #### M AT21 ####[facility] LABCLIA [id number] [place] [address] Gestational age Estimated from conception date Drummond Normal [facility] Comment on above: Order Comment: Speci men Type: BLOOD SPECIMENOrdering Facility: [facility] Address: [address] [place] [address] Performed By: #### M AT21 ####[facility] LABCLIA [id number] [place] [address] GESTATIONALAGE AGE > OR = 9W Yes Normal [facility] Comment on above: Order Comment: Speci men Type: BLOOD SPECIMENOrdering Facility: [facility] Address: [address] [place] [address] Performed By: #### M AT21 ####[employer] LABCLIA [id number] [place] [address] Laboratory comment Alen (Report) Comment Normal [facility] Comment on above: Order Comment: Speci men Type: BLOOD SPECIMENOrdering Facility: [facility] Address: [address] [place] [address] Result Comment: The MaterniT(R) 21 PLUS laboratory-developed test (LDT) analyzes circulating cell-free DNA from a maternal blood sample. This test is used for screening purposes and not diagnostic. Clinical correlation is recommended. Validation data on twin pregnancies is limited and the ability of this test to detect aneuploidy in higher multiple gestations has not yet been validated. Performed By: #### M AT21 ####[employer] LABCLIA [id number] [place] [address] choral director name Nom (Provider) Comment Normal [facility] Comment on above: Order Comment: Speci men Type: BLOOD SPECIMENOrdering Facility: [facility] Address: [address] [place] [address] Result Comment: This specimen showed an expected representation of chromosome 21, 18 and 13 material. Clinical correlation is suggested. Comment Vinh Lopez MD, PhD, Director, [employer] [place] Performed By: #### M AT21 ####[facility] LABCLIA [id number] [place] [address] LIMITATIONS OF THE TEST Comment Normal [facility] Comment on above: Order Comment: Speci men Type: BLOOD SPECIMENOrdering Facility: [facility] Address: [address], [place] [address] Result Comment: Yony ashley the results of these tests are highly reliable, discordant results, including inaccurate sex prediction, may occur due to placental, maternal, or mosaicism or neoplasm; vanishing twin; prior maternal organ transplant; or other causes. These tests are screening tests and not diagnostic; they do not replace the accuracy and precision of diagnosis with CVS or amniocentesis. A patient with a positive test result should be referred for genetic counseling and offered invasive diagnosis for confirmation of test results.[5] The results of this testing, including the benefits and limitations, should be discussed with a qualified healthcare provider. management decisions, including termination of the , should not be based on the results of these tests alone. The healthcare provider is responsible for the use of this information in the management of their patient. Sex chromosomal aneuploidies are not reportable for known multiple gestations. A negative result does not ensure an unaffected nor does it exclude the possibility of other chromosomal abnormalities or defects which are not a part of these tests. An uninformative result may be reported, the causes of which may include, but are not limited to, insufficient sequencing coverage, noise or artifacts in the region, amplification or sequencing bias, or insufficient fraction. These tests are not intended to identify pregnancies at risk for neural tube defects or ventral wall defects. Testing for whole chromosome abnormalities (including sex chromosomes) and for subchromosomal abnormalities could lead to the potential discovery of both and maternal genomic abnormalities that could have major, minor, or no, clinical significance. Evaluating the significance of a positive or a non-reportable result may involve both invasive testing and additional studies on the mother. Such investigations may lead to a diagnosis of maternal chromosomal or subchromosomal abnormalities, which on occasion may be associated with benign or malignant maternal neoplasms. These tests may not accurately identify triploidy, balanced rearrangements, or the precise location of subchromosomal duplications or deletions; these may be detected by diagnosis with CVS or amniocentesis. The ability to report results may be impacted by maternal BMI, maternal weight, maternal systemic lupus erythematosus (SLE) and/or by certain pharmaceutical agents such as low molecular weight heparin (for example: Lovenox(R), Xaparin(R), Clexane(R) and Fragmin(R)). Performed By: #### M AT21 ####[facility] LABCLIA [id number] [place] [address] Monosomy X risk Dosage of chromosome-specific cfDNA Ql (Plasma cell-free+WBC DNA) [Interp] Not detected Normal [facility] Comment on above: Order Comment: Speci men Type: BLOOD SPECIMENOrdering Facility: [facility] Address: [address] [place] [address] Performed By: #### M AT21 ####[employer] LABCLIA [id number] [place] [address] NEGATIVE PREDICTIVE VALUE Note Normal [facility] Comment on above: Order Comment: Tom men Type: BLOOD SPECIMENOrdering Facility: [facility] Address: [address] [place] [address] Result Comment: The Negative Predictive Value (NPV) for trisomy 21, 18, and 13 is greater than 99%. The NPV for SCA and ESS cannot be calculated as SCA and ESS are only reported when an abnormality is detected. Performed By: #### M AT21 ####[facility] LABCLIA [id number] [place] [address] PERFORMANCE CHARACTERISTICS Note Normal [facility] Comment on above: Order Comment: Tom jarocho Type: BLOOD SPECIMENOrdering Facility: [facility] Address: [address] [place] [address] Result Comment: ! Sex ! Accuracy: 99.4% ! ! ! ! Region (associated syndrome) ! Est. Sens# ! Est. Spec ! ! ! ! Trisomy 21 (Down Syndrome) ! 99.1% ! 99.9% ! ! ! ! Trisomy 18 (Elias Syndrome) ! >99.9% ! 99.6% ! ! ! ! Trisomy 13 (Patau Syndrome) ! 91.7% ! 99.7% ! ! ! ! Sex Chromosome Aneuploidies## ! 96.2% ! 99.7% ! ! ! * As reported in ISCA database nstd37 [https://www.ncbi.nlm.nih.gov/dbvar/studies/nstd37/ ] # Estimated Sensitivity. Sensitivity estimated across the observed size distribution of each syndrome [per ISCA database nstd37] and across the range of fractions observed in routine clinical NIPT. Actual sensitivity can also be influenced by other factors such as the size of the event, total sequence counts, amplification bias, or sequence bias. ## Drummond gestation only. Performed By: #### M AT21 ####[facility] [id number] [place] [id number] POSITIVE PREDICTIVE VALUE N/A Normal [facility] Comment on above: Order Comment: Speci men Type: BLOOD SPECIMENOrdering Facility: [facility] Address: [address] [place] [address] Performed By: #### M AT21 ####[employer] LABCLIA [id number] [place] [id number] Reference Lab Test Method Comment Normal [facility] Comment on above: Order Comment: Speci men Type: BLOOD SPECIMENOrdering Facility: [facility] Address: [address] [place] [address] Result Comment: See Notes Circulating cell-free DNA was purified from the plasma component of maternal blood. The extracted DNA was then converted into a genomic DNA library for aneuploidy analysis of chromosomes 21, 18, and 13 via next generation sequencing.[1] Optional findings based on the test order include sex chromosome aneuploidy (SCA)[2], and enhanced sequencing series (ESS)[3], which will only be reported on as an additional finding when an abnormality is detected. SCA testing includes information on X and Y representation, while ESS testing includes deletions in selected regions (22q, 15q, 11q, 8q, 5p, 4p, 1p) and trisomy of chromosomes 16 and 22. Performed By: #### M AT21 ####[employer] LABCLIA [id number] [place] [id number] Service comment (Unsp spec) [Interp] Comment Normal [facility] Comment on above: Order Comment: Speci men Type: BLOOD SPECIMENOrdering Facility: [facility] Address: [address] [place] [address] Result Comment: See Notes [employer] is a subsidiary of [employer], using the brand [facility]. This test was developed and its performance characteristics determined by [facility]. It has not been cleared or approved by the Food and Drug Administration. This laboratory is certified under the Clinical Laboratory Improvement Amendments (CLIA) as qualified to perform high complexity clinical laboratory testing and accredited by the [employer] [place] [employer] (CAP). If there is future clinical need for adding MaterniT GENOME testing, this specimen will be available until term. [facility] samples will not be retained beyond 60 days. [facility] patients will have to send a new sample for re-sequencing ([facility] Test Code: [id number]). Performed By: #### M AT21 ####[facility] LABCLIA [id number] [place] [address] Sex Dosage of chromosome-specific cfDNA Nom (cfDNA) Comment Normal [facility] Comment on above: Order Comment: Speci men Type: BLOOD SPECIMENOrdering Facility: [facility] Address: [address] [place] [address] Result Comment: Cons istent with Female Performed By: #### M AT21 ####[facility] LABCLIA [id number] [place] [address] Test performance information Alen (Unsp spec) Comment Normal [facility] Comment on above: Order Comment: Speci men Type: BLOOD SPECIMENOrdering Facility: [facility] Address: [address] [place] [address] Result Comment: The performance characteristics of the MaterniT(R) 21 PLUS laboratory-developed test (LDT) have been determined in a clinical validation study with women at increased risk for chromosomal aneuploidy.[1-4] Performed By: #### M AT21 ####[facility] LABCLIA [id number] [place] [address] Trisomy 13 risk Dosage of chromosome-specific cfDNA Ql (cfDNA) [Interp] Negative Normal [facility] Comment on above: Order Comment: Speci men Type: BLOOD SPECIMENOrdering Facility: [facility] Address: [address] [place] [address] Performed By: #### M AT21 ####[facility] LABCLIA [id number] [place] [address] Trisomy 18 risk Dosage of chromosome-specific cfDNA Ql (Plasma cell-free+WBC DNA) [Interp] Negative Normal [facility] Comment on above: Order Comment: Speci men Type: BLOOD SPECIMENOrdering Facility: [facility] Address: [address] [place] [address] Performed By: #### M AT21 ####[facility] LABCLIA [id number] [place] [address] RUBELLA IGG ANTIBODYon 12-06 RUBELLA IGG AB, QUAL Negative Abnormal Positive [facility] Comment on above: Order Comment: Speci men Type: BLOOD SPECIMENOrdering Facility: [facility] Address: [address] [place] [address] Result Comment: The result suggests no history of Rubella vaccination or exposure to Rubella virus, however, some individuals with past history of Rubella vaccination may test negative using this test as immunity to Rubella virus wanes over time after vaccination. Please correlate with vaccination history if applicable. Performed By: #### R UBIGG ####[facility] LABCLIA [id number] [place] [address] [place] Reagin and Treponema pallidu m IgG and IgM [Interp]on 12-06-2024 T. pallidum IgG+IgM IA Ql (S) Non-Reactive Normal Nonreactive [facility] Comment on above: Order Comment: Speci jarocho Type: BLOOD SPECIMENOrdering Facility: [facility] Address: [address] [place] [address] Performed By: #### 7 3752-8, 87498-2, 5194-3 ####[facility] LABCLIA [id number] [place] [address] [place] Reagin+T pallidum IgG+IgM Se rPl-Impon 12-06-2024 Reagin and Treponema pallidum IgG and IgM [Interp] Cannot exclude recent Treponemal infection if specimen collected within 7-10 days after appearance of suspect lesions or 2-3 weeks after an exposure. Clinical correlation is required. Normal [facility] Comment on above: Order Comment: Tom [facility] Type: BLOOD SPECIMENOrdering Facility: [facility] Address: [address] [place] [address] Performed By: #### 7 3752-8, 42396-0, 5195-3 ####[facility] LABCLIA [id number] [place] [address] [place] TYPE + SCREEN PRENATALon ABO O Normal [facility] Comment on above: Order Comment: Speci men Type: BLOOD SPECIMENOrdering Facility: [facility] Address: [address] [place] [address] Performed By: #### T SPN ####[facility] B[facility] BANKCLIA [id number] [place] [address] [place] Rh Nom (Bld) Positive Normal [facility] Comment on above: Order Comment: Speci men Type: BLOOD SPECIMENOrdering Facility: [facility] Address: [address] [place] [address] Performed By: #### T SPN ####[facility] BLOOD BANKCLIA [id number] [place] [address] [place] TYPE AND SCREEN EXPIRATION 12/09/2024 23:59 Normal [facility] Comment on above: Order Comment: Speci men Type: BLOOD SPECIMENOrdering Facility: [facility] Address: [address] [place] [address] Performed By: #### T SPN ####[facility] BLOOD BANKCLIA [id number] [place] [address] [place] Emergency Department Summary on 06-18-2024 Emergency Department Summary [facility] Medical Records Department [address] [place] [id number] Emergency Department Summary 06/18/24 MR#: [id number] Acct: [id number] Name: DAMON GARZA Rep #: [id number] : 2005 18 From: Nurys Allan DO PCP: JOSÉ MIGUEL Ch Status:REG ER Location: ED HPI History of Present Illness Chief Complaint: Eye Problem Informant: patient Narrative Narrative: Patient is 18-year-old female noticing a physical history presenting with concern for contact lens stuck in her right eye. Patient went to rub her left eye and then noticed her vision was blurry in her right eye. It felt like she was not wearing her contacts. She wears soft contact lenses. She then had a slight burning sensation in her eye and was worried that maybe her contact was stuck in her eye somewhere. Denies any other complaints at this time. Denies any injury or trauma to the eye. Does not report any abnormal drainage to the eye. No other complaints or concerns reported at this time. Does have glasses to wear. Follows with optometry, Chuy Duran. PFSH PFS Home Medications ???Medication ???Instructions ???Recorded ???Last Taken ???Type naproxen 500 mg tablet (Naprosyn) 500 mg PO BID PRN pain #20 tabs 05/30/24 Unknown Rx Allergy/AdvReac Type Severity Reaction Status Date / Time No Known Allergies Allergy Verified 06/18/24 22:43 Social History Smoking Status: Current some day smoker tobacco type: e-cigarettes ROS ROS ED Constitutional Constitutional ED: Denies chills or fever(s) Eyes Eyes: Reports blurry vision and other Details: mild buring to the right eye ENT ENT ED: Denies rhinorrhea or sore throat Gastrointestinal Gastrointestinal: Denies nausea or vomiting Neurologic Neurologic: Denies headache(s) EXAM Physical Exam Const Vital Signs: 06/18/24 22:44 06/18/24 23:16 Temperature 97.4 F L 97.0 F L Temperature Source Temporal Pulse Rate 91 60 Respiratory Rate 18 16 Blood Pressure 101/71 L 103/68 L Blood Pressure Mean 81 79 Pulse Ox 98 98 Oxygen Delivery Method Room Air Positive well nourished and well developed General Appearance ED: well developed and NAD HEENT atraumatic Nose: external nose normal Eyes Eyes Narrative: No conjunctival injection. Pupils round reactive to light. EOMI. No contact noted in the right eye. Eyelid is everted and pulled back and I do not see any contact behind upper eyelid. Do not see any contact below the eye either. Neck supple Resp normal respiratory effort Neuro oriented x3 Sensorium / Orientation: alert Psych Psych Narrative: Behaving appropriately Skin no wounds MDM MDM MDM Narrative Medical decision making narrative: Patient is evaluated for concern for contact stuck in her right eye. She has blurry vision but attributes that to not wearing eye contact. I do not see retained contact. She does not seem to have any significant eye discomfort and I have a low suspicion for corneal abrasion. Visual acuity is 20/25 uncorrected. I suspect that her contact just fell out it did not get lost behind her eye. Patient encouraged to follow-up with her philanthropy officer on Friday if she still having eye issues. Encouraged to use lubricating eyedrops and wear glasses not contacts until she follows up. She is also given information for our ophthalmology on-call (Dr. Campbell). Is instructed to avoid Visine eyedrops and use Systane brand. Discharge Plan Triage Chief Complaint: Eye Problem ED Provider: Nurys Allan Dx/Rx/DC Orders Clinical Impression: Concern about eye disease without diagnosis Instructions: ED Corneal Injury, Contact Lens Prescriptions: No Action naproxen [Naprosyn] 500 mg tablet 500 mg PO BID PRN (Reason: pain) Qty: 20 0RF Primary Care Provider: Minda Haley NP Referrals: Brendan Brunson MD [Med Staff - Active Staff] - 1-2 Days if not improving Minda Haley NP, [facility] [Primary Care Provider] - Activity Restrictions/Addition al Instructions: There does not appear to be a contact stuck in your eye. I recommend using lubricating eyedrops such as Systane brand. Do not put contacts back in your eyes and wear glasses intake and either follow-up with your philanthropy officer or that the mall just through [facility] (you been given the contact information). Print Language: Senegalese Disposition Disposition: Home, Self Care What to do if you have Problems For any increased pain, shortness of breath, bleeding, nausea or vomiting, chest pain, or any unexpected problems, contact your Primary Care Provider. Call [facility] ([phone]) or report to the closest Emergency Room. Call 911 if necessary. 06/18/24 2339 Cosigner Signature (if applicable): (more content not included)... Normal [facility] Emergency Department Summary on 05-30-2024 Emergency Department Summary [facility] Medical Records Department [address] [place] [address] Emergency Department Summary 05/30/24 MR#: [id number] Acct: [id number] Name: BHAVANIDAMON Rep #: [id number] : 2005 18 From: Del JAMESC PCP: JOSÉ MIGUEL Ch Status:[facility] ER Location: ED Patient was seen and examined with nurse practitioner Del All components of the history and physical confirmed and agreed. History of present illness and physical exam: Patient is a 18-year-old female with no known significant past medical history who presented to the emerged part with chief complaint of back pain. Patient states that she does have scoliosis. Patient noted that she presented to the emergency department for a work note that she states that she lifted up some heavy Gatorade packages and noted that she had back pain. She states that she did have to call off and her boss told her that for to return to work she would need a physician's note clearing her to return to work. Patient states that she does have a primary care physician. Patient states that she has been urinating her normal self and having normal bowel movements. Patient just states that she is more sore than her normal self with her scoliosis. Review of systems: Agree with above Physical exam General: Patient was lying in bed rest comfortably did not appear to be in acute distress Head: Atraumatic, normocephalic Eyes: PERRL bilaterally, EOMI bilaterally, no conjunctival injection noted Neck: Soft, supple, trachea midline, patient has full range of motion of her neck without any pain Cardiovascular: Regular rate and rhythm no murmurs gallops rubs noted Musculoskeletal: No tenderness palpation the midline of the thoracolumbar spine. Extremities: +5/5 strength noted in the bilateral upper and lower extremities, no pedal edema noted exam Neurological: Patient is following commands knew that she was at [facility] year is 2023. No saddle anesthesia noted Skin: Warm, dry, intact no rashes or lesions noted MDM Patient is a 18-year-old female who presented to the emergency department for a work note for her back pain in order to return to work according to her boss. On the differential diagnose includes Melamin to musculoskeletal strain, acute on chronic back pain. Patient was given a work note and was encouraged to follow-up with her primary care physician outpatient setting. Patient was given prescription for naproxen she was advised to not take this on an empty stomach. She was encouraged return with worsening symptoms or any other concerns she would like to go home at this point time all question concerns answered she was discharged home in stable condition. Final impression: Musculoskeletal strain Back pain Disposition: Patient will be discharged home in stable condition Supervising attending attestation: Josh LAM History of Present Illness Chief Complaint: Back Narrative Narrative: 18-year-old female with no significant ankle history, who does have a history of scoliosis, minor presents to the emergency department for a work note. Patient states that she had to lift up some heavy Gatorade packages yesterday, today, her back was more sore than usual and she had a call off. Her boss called her and told her that she needed a work note for today and that she is able to return back to work tomorrow. Pay states the pain is minimal at this time. She states that she can return to work without any difficulty. She does have a PCP. Denies any radiation to the back pain. Patient has had this back pain before. PFSH PFSH Home Medications ???Medication ???Instructions ???Recorded ???Last Taken ???Type naproxen 500 mg tablet (Naprosyn) 500 mg PO BID PRN pain #20 tabs 05/30/24 Unknown Rx Allergy/AdvReac Type Severity Reaction Status Date / Time No Known Allergies Allergy Verified 05/30/24 14:10 Social History Smoking Status: Never smoker ROS ROS ED ROS Narrative Constitutional: Negative for fever, chills, weight loss, weakness Eyes: Negative for vision loss, vision change, double vision ENT: Negative for any sore throat, ear pain, congestion Cardiovascular: Negative for any chest pain, tightness, palpitations Respiratory: Negative for any cough, sputum production, hemoptysis, dyspnea, dyspnea on exertion, orthopnea Gastrointestinal: Negative for any abdominal pain, nausea, vomiting, diarrhea, constipation, blood in stool, blood in vomit : Negative for any urinary frequency, dysuria, retention, blood in urine Muscle skeletal: Negative for any neck pain. Positive for back pain Neurological: Negative for any headache, syncope, dizziness Skin: Negative for any rashes, itching, abrasions, lacerations Psychiatric: Negative for any depression, anxiety, stress, suicidal ideation, homici (more content not included)... Normal [facility] Progress Noteon 01-28-2023 Lacquer Maker Authentication Interface Message Text Patient ID: Damon Garza is a 17 y.o. female. Her chief complaint(s) include: 17 YEAR WELL CHILD Assessment 1. Encounter for routine child health examination without abnormal findings 2. Exercise counseling 3. Encounter for dietary counseling and surveillance 4. Need for vaccination Plan Damon was seen today for 17 year well child. Diagnoses and associated orders for this visit: Encounter for routine child health examination without abnormal findings - PHQ9 Assessment With Score - Health Risk Assessment - MCT Exercise counseling Encounter for dietary counseling and surveillance Need for vaccination - Meningococcal conjugate ACWY vaccine (MENQUADFI) Return in about 1 year (around 01/29/2024) for well check. Subjective She is accompanied by her mother. 17 YEAR WELL CHILD Home: Damon eats meals with family, has an adult to turn to for help and is permitted and able to make independent decisions. Damon has no home risk identified. Education: Damon is in 11th grade and is doing well. (Home schooled ). Eating: Damon eats regular meals including fruits and vegetables, eats breakfast, limits fast food, drinks non-sweetened liquids and has a calcium source. Damon does not have concerns about body appearance. Activities & Sports: Damon has friends, has a job and participates in community activities. Drugs: Damon does not use tobacco, does not use drugs, does not use alcohol and does not vape. Safety: Damon has a violence free home. Suicidality: Damon has ways to cope with stress. Menstruation Menstruation: regular periods Output Urine and Stool Pattern: Urine and Stool Pattern: Normal stool pattern, normal urine pattern. Sleep Sleeping Difficulty: no difficulty sleeping Teen Anticipatory Guidance The following anticipatory guidance was reviewed during the visit: Nutrition: limit junk food/fast food and soft drinks. Safety: home safety, use safety helmet/gear with activities and don't carry or use weapons. Social: avoid or limit screen time, explore heritage and cultural diversity, parental limits and consequences for unacceptable behavior and bullying. Health: age appropriate dental care, age appropriate sleep habits, elevated noise and hearing, talk with trusted adult if feeling sad or nervous, learn to manage time and activities, be responsible for attendance/ homework/ course selection, learn about self and strengths, recognize and deal with stress and limit sun exposure/use sunscreen. Screenings Previous Vaccine Reactions: No. Life events information was reviewed-no referral needed Tuberculosis Concerns: Negative Tuberculosis Screen Concerns: no TB Risk Factors Hearing Vision Concerns: Patient wears glasses or contact lenses. The caregiver has no concerns about the patient's hearing. The caregiver has no concerns about the patient's vision. Hyperlipidemia Concerns: Negative Hyperlipidemia Screen Concerns: no Hyperlipidemia Risk Factors Primary Care Review of Systems Objective Vital Signs 01/28/23 0809 01/28/23 0814 BP: 126/69 114/62 Pulse: 88 69 Weight: 61.2 kg Height: 161 cm Body mass index is 23.61 kg/m . Physical Exam Nursing note reviewed. Constitutional: She appears well. She is active. No distress. HENT: Head: Atraumatic. Ears: Right Ear: Tympanic membrane and external ear normal. Left Ear: Tympanic membrane and external ear normal. Nose: Nose normal. Mouth/Throat: Mucous membranes are moist. Dentition is normal. Oropharynx is clear. Eyes: EOM are normal. Pupils are equal, round, and reactive to light. Neck: Neck supple. Thyroid normal. Cardiovascular: Normal rate, regular rhythm, S1 normal and S2 normal. Pulses are palpable. Heart murmur not heard. Pulmonary/Chest: Breath sounds normal. No respiratory distress. Exhibits no deformity. Abdominal: Soft. Bowel sounds are normal. She exhibits no distension and no mass. There is no hepatosplenomegaly. There is no abdominal tenderness. Musculoskeletal: Cervical back: Normal range of motion and neck supple. Lumbar back: No scoliosis. General: Normal range of motion. Neurological: She is alert. She has normal strength. She exhibits normal muscle tone. Gait normal. Skin: Skin is warm. Skin is not pale. Findings: No rash. Vitals reviewed: Blood pressure 114/62, pulse 69, height 161 cm, weight 61.2 kg, last menstrual period 01/13/2023. 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 female. Her chief complaint(s) include: Back Pain Assessment 1. Chronic bilateral low back pain without sciatica Plan Damon was seen today for back pain. Diagnoses and associated orders for this visit: Chronic bilateral low back pain without sciatica Will do lower back exercises. If not seeing improvement over the next month, may need referral to PT and/or orthopedics. Back exercises were provided. Instructed to use ibuprofen for pain. To alternate heat/ice to area as needed for pain. To call if continuing to have the discomfort or if worsening symptoms. Return if symptoms worsen or fail to improve. Subjective She is accompanied by her mother. Independent history obtained from mother. Back Pain The onset has been gradual. The duration has been 4 years. The pattern is persistent. Course: worse some days vs others. The location of pain/injury in spine is lower back (both side). No antecedent event exist. (Does have history of scoliosis). The pain is characterized as a dull ache and sharp (when aggravated, can be sharp). (Laying on her stomach makes it worse). Associated symptoms include(s) painful ROM (sometimes pain with bending) and decreased ROM. Patient denies fever, chills, popping/clicking, warmth, erythema, bruising, paresthesias, radiating pain, numbness, muscle weakness and loss of bowel/bladder control. Prior management include(s) acetaminophen and NSAID use (sometimes). Previous visits does not include(s) physical therapy. Previous diagnostic tests does not include(s) MRI (done 4 years ago). Review of Systems Musculoskeletal: Positive for back pain. Objective Vital Signs 08/07/22 1408 Temp: 36.6 C (97.9 F) TempSrc: Temporal Weight: 59.5 kg There is no height or weight on file to calculate BMI. Physical Exam Constitutional: She appears well. She is active. No distress. HENT: Head: Atraumatic. Ears: Right Ear: Tympanic membrane and external ear normal. Left Ear: Tympanic membrane and external ear normal. Nose: Nose normal. No nasal discharge. Mouth/Throat: Mucous membranes are moist. Dentition is normal. No pharynx erythema. Eyes: Conjunctivae and EOM are normal. Pupils are equal, round, and reactive to light. Neck: Neck supple. Cardiovascular: Normal rate, regular rhythm, S1 normal and S2 normal. Pulses are palpable. Pulmonary/Chest: Effort normal and breath sounds normal. Abdominal: Soft. Bowel sounds are normal. She exhibits no distension and no mass. There is no abdominal tenderness. Musculoskeletal: Cervical back: Neck supple. Lumbar back: Abnormal curvature of lumbar spine: mild tenderness of lower back (right side more than left). No erythema or warmth. No swelling. Patient had good range of motion. Patient able to bend foreward and backward with pain. No pain with side bends and with rotation. General: Tenderness present. No deformity. Neurological: She is alert. She has normal strength and normal reflexes. She exhibits normal muscle tone. Coordination and gait normal. Skin: Skin is warm. Skin is not pale and cyanotic. Findings: No rash. Vitals reviewed: Temperature 36.6 C (97.9 F), temperature source Temporal, weight 59.5 kg, last menstrual period 07/08/2022. Normal [facility] Vital Signs Date Time Vital Sign Value Performing Clinician Ferny de souza 04-08-2025 16:34-0400 Body mass index (BMI) [Ratio] 25.56 kg/m2 Kate Castanon APRN.CNM Work Phone: [facility] 04-08-2025 16:34-0400 Body weight 67.13 kg Kate Castanon APRN.CNM Work Phone: [facility] 04-08-2025 16:34-0400 Diastolic blood pressure 74 mm[Hg] Kate Castanon APRN.CNM Work Phone: [facility] 04-08-2025 16:34-0400 Systolic blood pressure 122 mm[Hg] Kate Castanon APRN.CNM Work Phone: [facility] 03-30-2025 09:49-0400 Body mass index (BMI) [Ratio] 25.39 kg/m2 Wanda Gardiner APRN.CNM Work Phone: [facility] 03-30-2025 09:49-0400 Body weight 66.68 kg Wanda Gardiner APRN.CNM Work Phone: [facility] 03-30-2025 09:49-0400 Diastolic blood pressure 70 mm[Hg] Wanda Gardiner APRN.CNKelton Work Phone: [facility] 03-30-2025 09:49-0400 Systolic blood pressure 110 mm[Hg] Wanda Gardiner APRN.CNM Work Phone: [facility] 03-22-2025 13:27-0400 Diastolic blood pressure 79 mm[Hg] i [facility] 03-22-2025 13:27-0400 Systolic blood pressure 120 mm[Hg] [facility] 03-21-2025 08:06-0400 Body mass index (BMI) [Ratio] 24.7 kg/m2 Mumtaz Hatyrone SPECIAL EDUCATION SUPERVISOR.BREAD BAKER Work Phone: [facility] 03-21-2025 08:06-0400 Body weight 64.86 kg Mumtaz Hatyrone SPECIAL EDUCATION SUPERVISOR.BREAD BAKER Work Phone: [facility] 03-21-2025 08:06-0400 Diastolic blood pressure 68 mm[Hg] Mumtaz Haury SPECIAL EDUCATION SUPERVISOR.BREAD BAKER Work Phone: [facility] 03-21-2025 08:06-0400 Systolic blood pressure 110 mm[Hg] Mumtaz Haury SPECIAL EDUCATION SUPERVISOR.BREAD BAKER Work Phone: [facility] 03-16-2025 13:21-0400 Body mass index (BMI) [Ratio] 25.11 kg/m2 Kate Plotts SPECIAL EDUCATION SUPERVISOR.CNM Work Phone: [facility] 03-16-2025 13:21-0400 Body weight 65.95 kg Kate Plotts SPECIAL EDUCATION SUPERVISOR.CNM Work Phone: [facility] 03-16-2025 13:21-0400 Diastolic blood pressure 60 mm[Hg] Kate Plotts SPECIAL EDUCATION SUPERVISOR.CNM Work Phone: [facility] 03-16-2025 13:21-0400 Systolic blood pressure 98 mm[Hg] Kate Plotts SPECIAL EDUCATION SUPERVISOR.CNM Work Phone: [facility] 01-25-2025 10:20-0400 Body mass index (BMI) [Ratio] 24.01 kg/m2 Wanda Gardiner SPECIAL EDUCATION SUPERVISOR.CNM Work Phone: [facility] 01-25-2025 10:20-0400 Body weight 63.05 kg Wanda Gardiner SPECIAL EDUCATION SUPERVISOR.CNM Work Phone: [facility] 01-25-2025 10:20-0400 Diastolic blood pressure 64 mm[Hg] Wanda Gardiner SPECIAL EDUCATION SUPERVISOR.CNM Work Phone: [facility] 01-25-2025 10:20-0400 Systolic blood pressure 98 mm[Hg] Wanda Gardiner SPECIAL EDUCATION SUPERVISOR.CNM Work Phone: [facility] 01-11-2025 09:57-0400 Body mass index (BMI) [Ratio] 23.63 kg/m2 Destini Langley MD Work Phone: [facility] 01-11-2025 09:57-0400 Body weight 62.05 kg Destini Langley MD Work Phone: [facility] 01-11-2025 09:57-0400 Diastolic blood pressure 70 mm[Hg] Destini Langley MD Work Phone: [facility] 01-11-2025 09:57-0400 Systolic blood pressure 110 mm[Hg] Destini Langley MD Work Phone: [facility] 12-06-2024 12:54-0500 Body height 162.1 cm Kate Plotts SPECIAL EDUCATION SUPERVISOR.CNM Work Phone: [facility] 12-06-2024 12:54-0500 Body mass index (BMI) [Ratio] 21.76 kg/m2 Kate Plotts SPECIAL EDUCATION SUPERVISOR.CNM Work Phone: [facility] 12-06-2024 12:54-0500 Body weight 57.15 kg Kate Plotts SPECIAL EDUCATION SUPERVISOR.CNM Work Phone: [facility] 12-06-2024 12:54-0500 Diastolic blood pressure 60 mm[Hg] Kate Plotts SPECIAL EDUCATION SUPERVISOR.CNM Work Phone: [facility] 12-06-2024 12:54-0500 Systolic blood pressure 108 mm[Hg] Kate Plotts SPECIAL EDUCATION SUPERVISOR.CNM Work Phone: [facility] Encounters Encounter Date Encounter Type Care Provider Facility Start: 04-08-2025 End: 04-08-2025 Patient encounter procedure Kate Castanon SPECIAL EDUCATION SUPERVISOR.CNM Work Phone: OB/Gynecology Comment on above: Supervision of high risk in third trimester (HCC) (Primary Dx); Uterine size-date discrepancy, third trimester (HCC); Group beta Strep positive; Muscular ventricular septal defect (HCC); 38 weeks gestation of (HCC) Start: 04-04-2025 End: 04-04-[facility] [place] Start: 04-04-2025 End: 04-04-2025 [facility] [place] Comment on above: Population Health Na vigation Outreach ( to PCP/OB/) Start: 03-30-2025 End: 03-30-2025 ambulatory WANDA GARDINER Facility:[facility] Start: 03-30-2025 End: 03-30-2025 Patient encounter procedure Wanda Gardiner APRN.CNM Work Phone: OB/Gynecology Comment on above: Supervision of high risk in third trimester (HCC) (Primary Dx); 37 weeks gestation of (HCC); Uterine size-date discrepancy, third trimester (HCC); Late care (HCC); Group beta Strep positive; Muscular ventricular septal defect (HCC) Start: 03-22-2025 End: 03-22-2025 Patient encounter procedure Whi Tech 2 Security Strategist [facility] Comment on above: Supervision of high risk in third trimester (HCC); 36 weeks gestation of (HCC); Muscular ventricular septal defect (HCC); Uterine size-date discrepancy, third trimester (HCC) Start: 03-22-2025 End: 03-22-2025 ambulatory MUMTAZ TYRONE Facility:[facility] Start: 03-21-2025 End: 03-21-2025 Patient encounter procedure Mumtaz Morales SPECIAL EDUCATION SUPERVISOR.BREAD BAKER Work Phone: OB/Gynecology Comment on above: Supervision of high risk in third trimester (HCC) (Primary Dx); 36 weeks gestation of (HCC); Muscular ventricular septal defect (HCC); Uterine size-date discrepancy, third trimester (HCC) Start: 03-21-2025 End: 03-21-2025 ambulatory MUMTAZ MORALES Facility:[facility] Start: 03-16-2025 End: 03-16-2025 Patient encounter procedure Kate Castanon RAINER.DANILO Work Phone: OB/Gynecology Comment on above: 35 weeks gestation o f (HCC) (Primary Dx); Supervision of high risk in third trimester (HCC); Encounter for supervision of high risk due to anomaly, second trimester (HCC); Muscular ventricular septal defect (HCC) Start: 03-16-2025 End: 03-16-2025 ambulatory KATE CASTANON Facility:[facility] Start: 03-08-2025 End: 03-08-2025 Telephone encounter Nurse Security Strategist Narendra West Work Phone: Obstetrics/Gynecology Comment on above: PRAF Start: 03-02-2025 End: 03-02-2025 [facility] Start: 03-01-2025 End: 03-01-2025 [facility] GINGER ARLEEN Facility:[facility] Start: 01-27-2025 End: 03-29-2025 Follow-up encounter Destini Langley MD Work Phone: OB/Gynecology Start: 01-25-2025 End: 01-25-2025 Patient encounter procedure Wanda Gardiner APRN.DANILO Work Phone: OB/Gynecology Comment on above: Encounter for superv ision of high risk due to anomaly, second trimester (HCC) (Primary Dx); Late care (HCC); 28 weeks gestation of (HCC); Muscular ventricular septal defect (HCC); Rubella non-immune status, antepartum (HCC); Need for vaccination Start: 01-25-2025 End: 01-25-2025 ambulatory WANDA VALERIA Facility:[facility] Start: 01-13-2025 End: 01-13-2025 Telephone encounter Nurse Security Strategist Narendra West Work Phone: Obstetrics/Gynecology Comment on above: PRAF Start: 01-11-2025 End: 01-11-2025 ambulatory DESTINI LANGLEY Facility:[facility] Start: 01-11-2025 End: 01-11-2025 Patient encounter procedure Destini Langley MD Work Phone: OB/Gynecology Comment on above: High risk teen pregn katelyn in second trimester (HCC) (Primary Dx); Screening for diabetes mellitus; Suspected anomaly, antepartum, single or unspecified fetus (HCC) Start: 12-14-2024 End: 12-14-2024 ambulatory KATE CASTANON Facility:[facility] Start: 12-14-2024 End: 12-14-2024 Patient encounter procedure Whi Tech 1 Security Strategist Mfm [facility] Comment on above: Encounter for routin e screening for malformation using ultrasonics (Primary Dx); Ventricular septal defect (VSD) of fetus in drum[place] , antepartum; 22 weeks gestation of Start: 12-11-2024 End: 12-11-2024 Emergency department patient visit Nurys Marquesojo feliz Facility:[facility] Start: 12-07-2024 End: 12-07-2024 Telephone encounter Natalya Mendoza RN Maternal Medicine Comment on above: Tip Cutter - O ther (PRAF) Start: 12-06-2024 End: 12-06-2024 ambulatory KATE CASTANON Facility:[facility] Start: 12-06-2024 End: 12-06-2024 Patient encounter procedure Kate Castanon SPECIAL EDUCATION SUPERVISOR.CNM Work Phone: OB/Gynecology Comment on above: with uncer tain dates, antepartum (Primary Dx); 21 weeks gestation of ; Encounter for supervision of high risk due to anomaly, second trimester; High risk teen in second trimester; Late care Start: 06-18-2024 End: 06-18-2024 Emergency department patient visit Minda Haley MOLD CARPENTER Facility:[facility] Start: 05-30-2024 End: 05-30-2024 Emergency department patient visit Minda Haley MOLD CARPENTER Facility:[facility] Start: 01-28-2023 End: 01-28-2023 ambulatory CAITLYN BRUNNER [facility] Start: 08-07-2022 End: 08-07-2022 ambulatory RADHA BARAJAS [facility] Procedures Date Procedure Procedure Detail Performing Clinician Start: 04-08-2025 Urnls dip stick/tabl et rgnt non-auto w/o micrscp Kate Castanon SPECIAL EDUCATION SUPERVISOR.CNM Work Phone: Start: 03-30-2025 Urnls dip stick/tabl et rgnt non-auto w/o micrscp Sunshine Encarnacion MD Work Phone: Start: 03-22-2025 Us preg uterus after 1st trimest / gestation Mumtaz Morales SPECIAL EDUCATION SUPERVISOR.BREAD BAKER Work Phone: Start: 03-21-2025 Urnls dip stick/tabl et rgnt non-auto w/o micrscp Mumtaz Morales SPECIAL EDUCATION SUPERVISOR.BREAD BAKER Work Phone: Start: 03-16-2025 Urnls dip stick/tabl et rgnt non-auto w/o micrscp Kate Castanon SPECIAL EDUCATION SUPERVISOR.CNM Work Phone: Start: 12-14-2024 Us preg uterus after 1st trimest / gestation Kate Castanon SPECIAL EDUCATION SUPERVISOR.CNM Work Phone: Start: 12-06-2024 Antibody screen WANDA GARDINER Comment on above: Order Comment: Speci men Type: BLOOD SPECIMENOrdering Facility: [facility] Address: [address] [place] [address] Performed By: #### T SPN ####CC [facility] BLOOD BANKIA [id number] [address] OF [place] Plan of Treatment Date Care Activity Detail Author Start: 01-25-2035 Urine microalbumin profile [facility] Start: 12-06-2025 GC (Gonorrhea) Scree manuel () GC (Gonorrhea) Screening () [facility] Start: 12-06-2025 Screening for Chlamy gabi trachomatis Chlamydia Screening () [facility] Start: 06-13-2025 Influenza vaccination Influenz a Vaccine (Season Ended) [facility] Start: 04-13-2025 End: 04-13-2025 Patient encounter procedure 04/13/2025 11:30 AM EDT Routine Office Visit OB/Gynecology [address] [place] [address] Wanda Gardiner APRN.CN [address] [place] [address] OB OB/Gynecology Comment on above: OB Start: 04-08-2025 End: 04-08-2025 Patient encounter procedure 04/08/2025 4:30 PM EDT Routine Office Visit OB/Gynecology [address] [place] [address] Kate Castanon APRN.CN [address] [place] [address] OB OB/Gynecology Comment on above: OB Start: 03-30-2025 End: 03-30-2025 Patient encounter procedure 03/30/2025 9:40 AM EDT Routine Office Visit OB/Gynecology [address] [place] [address] Sunshine Goodman MD [address] [place] [address] OB OB/Gynecology Comment on above: OB Start: 03-22-2025 End: 03-22-2025 Patient encounter procedure 03/22/2025 1:30 PM EDT Routine Office Visit Maternal Medicine [address] [place] [address] Growth Maternal Medicine Comment on above: Growth Start: 03-21-2025 End: 03-21-2026 OBSTETRIC ULTRASOUND WHI OBSTETRIC ULTRASOUND WHI Anc Imaging Routine Supervision of high risk in third trimester (HCC) 36 weeks gestation of (HCC) Muscular ventricular septal defect (HCC) Uterine size-date discrepancy, third trimester (HCC) Expected: 03/21/2025, Expires: 03/21/2026 [facility] Work Phone: Comment on above: Expected: 03/21/2025 , Expires: 03/21/2026 Start: 03-21-2025 End: 03-21-2025 Patient encounter procedure 03/21/2025 8:00 AM EDT Routine Office Visit OB/Gynecology [address] [place] [address] Mumtaz Morales, SPECIAL EDUCATION SUPERVISOR.BREAD BAKER [address] [place] [address] ob OB/Gynecology Comment on above: ob Start: 03-16-2025 End: 03-16-2025 Patient encounter procedure 03/16/2025 1:15 PM EDT Routine Office Visit OB/Gynecology [address] [place] [address] Kate Castanon SPECIAL EDUCATION SUPERVISOR.CNM [address] [place] [address] OB OB/Gynecology Comment on above: OB Start: 02-08-2025 End: 02-08-2025 ambulatory 02/08/2025 9:30 AM EDT [place] [address] [place] [address] Tiffany Gonzalez MD [address] [place], [place] [id number] Echo, Single , 26 Weeks PEDS CARD OBWEN PANTOJA Comment on above: Echo, Single B irth, 26 Weeks Start: 02-08-2025 End: 02-08-2025 Patient encounter procedure 02/08/2025 9:30 AM EDT Office Visit PEDS CARD BOWEN PANTOJA [address] [place] [address] muscular VSD Echo, Single , 26 Weeks PEDS CARD BOWEN PANTOJA Comment on above: muscular VSD E cho, Single , 26 Weeks Start: 02-07-2025 End: 02-07-2025 Patient encounter procedure 02/07/2025 8:30 AM EDT Routine Office Visit OB/Gynecology [address] [place] [address] Meenakshi Jensen MD [address] [place] [id number] OB OB/Gynecology Comment on above: OB Start: 01-25-2025 End: 04-26-2025 ANEMIA REFLEX PANEL ANEMIA REFLEX PANEL Lab Routine High risk teen in second trimester Expected: 01/25/2025 (Approximate), Expires: 04/26/2025 [facility] Comment on above: Expected: 01/25/2025 (Approximate), Expires: 04/26/2025 Start: 01-25-2025 End: 01-11-2026 GESTATIONAL GLUCOSE SCREEN, 1-HOUR, 50 GRAM, NON-FASTING GESTATIONAL GLUCOSE SCREEN, 1-HOUR, 50 GRAM, NON-FASTING Lab Routine Screening for diabetes mellitus Expected: 01/25/2025 (Approximate), Expires: 01/11/2026 [facility] Work Phone: Comment on above: Expected: 01/25/2025 (Approximate), Expires: 01/11/2026 Start: 01-25-2025 End: 01-11-2026 SYPHILIS TREPONEMAL W/REFLEX SYPHILIS TREPONEMAL W/REFLEX Lab Routine High risk teen in second trimester Expected: 01/25/2025 (Approximate), Expires: 01/11/2026 [facility] Comment on above: Expected: 01/25/2025 (Approximate), Expires: 01/11/2026 Start: 01-25-2025 End: 01-25-2025 Patient encounter procedure 01/25/2025 10:30 AM EDT Routine Office Visit OB/Gynecology [address] [place] [address] Wanda Gardiner APRN.CN [address] [place] [address] Glucose Test /OB OB/Gynecology Comment on above: Glucose Test /OB Start: 01-25-2025 End: 01-25-2025 ambulatory 01/25/2025 10:15 AM EDT Results Only [facility] [address] [place] [address] Glucose Test [facility] Comment on above: Glucose Test Start: 01-17-2025 End: 01-17-2025 ambulatory 01/17/2025 9:30 AM EDT Procedure Pediatric Cardiology [address] [place] [phone] Niharika Ingram MD [address] [place] [address] Echo, Single , 26 Weeks Pediatric Cardiology Comment on above: Echo, Single B irth, 26 Weeks Start: 01-17-2025 End: 01-17-2025 Patient encounter procedure 01/17/2025 9:30 AM EDT Office Visit Pediatric Cardiology [address] [place] [phone] Echo, Single , 26 Weeks Pediatric Cardiology Comment on above: Echo, Single B irth, 26 Weeks Start: 01-05-2025 End: 01-05-2025 Patient encounter procedure 01/05/2025 10:20 AM EDT Routine Office Visit OB/Gynecology [address] [place] [address] Rachele Rao MD [address] [place] [address] NEW OB LMP 07/11/24 OB/Gynecology Comment on above: NEW OB LMP 07/11/24 Start: 12-14-2024 End: 12-14-2024 Patient encounter procedure 12/14/2024 3:00 PM EST Routine Office Visit Maternal Medicine [address] [place] [address] Anatomy Maternal Medicine Comment on above: Anatomy Start: 12-06-2024 End: 03-07-2025 ANEMIA REFLEX PANEL [facility] Comment on above: Expected: 12/06/2024 , Expires: 03/07/2025 Start: 12-06-2024 End: 03-07-2025 Chromosome 21 trisomy [Presence] in Blood or Tissue by Cytogenetics [facility] Comment on above: Expected: 12/06/2024 , Expires: 03/07/2025 Start: 12-06-2024 End: 03-07-2025 Hemoglobin A1c in Blood [facility] Comment on above: Expected: 12/06/2024 , Expires: 03/07/2025 Start: 12-06-2024 End: 03-07-2025 Hepatitis B virus surface Ag [Presence] in Serum [facility] Comment on above: Expected: 12/06/2024 , Expires: 03/07/2025 Start: 12-06-2024 End: 03-07-2025 Hepatitis C virus Ab [Presence] in Serum [facility] Comment on above: Expected: 12/06/2024 , Expires: 03/07/2025 Start: 12-06-2024 End: 03-07-2025 HIV 1+2 Ab [Presence] in Serum or Plasma by Immunoassay [facility] Comment on above: Expected: 12/06/2024 , Expires: 03/07/2025 Start: 12-06-2024 End: 12-06-2025 OBSTETRIC ULTRASOUND WHI OBSTETRIC ULTRASOUND WHI Anc Imaging Routine with uncertain dates, antepartum Expected: 12/06/2024, Expires: 12/06/2025 [facility] Work Phone: Comment on above: Expected: 12/06/2024 , Expires: 12/06/2025 Start: 12-06-2024 End: 03-07-2025 RUBELLA IGG ANTIBODY [facility] Comment on above: Expected: 12/06/2024 , Expires: 03/07/2025 Start: 12-06-2024 End: 03-07-2025 SYPHILIS TREPONEMAL W/REFLEX [facility] Comment on above: Expected: 12/06/2024 , Expires: 03/07/2025 Start: 12-06-2024 End: 03-07-2025 TYPE + SCREEN [facility] Comment on above: Expected: 12/06/2024 , Expires: 03/07/2025 Start: 2024 Hepatitis B Vaccine (1 of 3 - 19+ 3-dose series) Hepatitis B Vaccine (1 of 3 - 19+ 3-dose series) [facility] Start: 2024 Urine microalbumin profile DTaP,Tdap,Td Vaccine (1 - Tdap) [facility] Start: 06-13-2024 Covid-19 Vaccine () Covid-19 Vaccine () [facility] Start: 06-13-2024 Covid-19 Vaccine ( season) Covid-19 Vaccine () [facility] Start: 06-13-2024 Influenza vaccination Influenza Vacc ine (#1) [facility] Start: 2023 Anxiety Screening Anxiety Screening [facility] Start: 2023 Depression Screening Depression Scre ening [facility] Start: 2023 GC (Gonorrhea) Scree manuel (1824) GC (Gonorrhea) Screening () [facility] Start: 2023 Hepatitis C screening Hepatitis C Sc reening [facility] Start: 2023 HIV screening HIV Screening [facility] Start: 2023 Screening for Chlamy gabi trachomatis Chlamydia Screening () [facility] Start: 2021 Meningococcal B Vacc ine (1 of 2 - Standard) Meningococcal B Vaccine (1 of 2 - Standard) [facility] Start: 2020 HPV Vaccine (1 - 3-d ose series) HPV Vaccine (1 - 3-dose series) [facility] Start: 2019 Peds To Adult Transi tion Annual Assessment Peds To Adult Transition Annual Assessment [facility] Start: 2017 Peds To Adult Transi tion Initial Discussion Peds To Adult Transition Initial Discussion [facility] Bacteria identified in Urine by Culture BACTERIAL CULTURE, URINE Microbiology Routine with uncertain dates, antepartum 12/06/2024 1:35 PM EST [facility] Chlamydia trachomatis+Neisseria gonorrhoeae DNA [Presence] in Unspecified specimen by KATELIN with probe detection GONORRHEA/CHLAMYDIA NAAT Lab Routine with uncertain dates, antepartum 12/06/2024 1:35 PM EST [facility] End: 12-14-2025 ECHO ECHO Cardiology Routine Ventricular septal defect (VSD) of fetus in [place] , antepartum Encounter for routine screening for malformation using ultrasonics 22 weeks gestation of 1 Occurrences starting 12/14/2024 until 12/14/2025 [facility] Work Phone: Comment on above: 1 Occurrences starti ng 12/14/2024 until 12/14/2025 ROUTINE, GR OUP B STREPTOCOCCUS BY PCR ROUTINE, GROUP B STREPTOCOCCUS BY PCR Microbiology Routine 36 weeks gestation of ([facility]) 03/21/2025 8:22 AM EDT [facility] Immunizations Immunization Date Immunization Notes Care Provider Myke oviedo 01-25-2025 tetanus toxoid, redu dasha diphtheria toxoid, and acellular pertussis vaccine, adsorbed Wanda Gardiner RAINER.CNM Work Phone: [facility] 06-24-2013 influenza virus vacc ine, unspecified formulation Nurse Wayne Work Phone: [facility] Payers Date Payer Category Payer Medicaid [id number] 2024 Unknown [id number] 2024 Self-pay 1975 Unknown [id number] [id number] 1975 Unknown [id number] 2.16. [id number] Unknown [id number] Unknown [id number] Unknown [id number] [id number] Unknown [id number] [id number] Social History Date Type Detail Facility Start: [facility]03[facility] Start: 12-03-2024 Tobacco use and exposure Smoke less tobacco non-user [facility] Start: 12-06-2024 End: 03-21-2025 Alcoholic beverage intake Lifetime non-drinker (finding) [facility] Start: 12-06-2024 End: 03-30-2025 History of Social function [facility] Start: 12-06-2024 End: 03-30-2025 Tobacco use panel [facility] National Score (1-10 0), lower number is lower risk 63 [facility] Start: 12-03-2024 Education 11 [facility] Start: 07-25-2024 [facility] Start: 2005 Sex assigned at Female C [facility] Start: 12-03-2024 Gender identity Identifies as female gender (finding) [facility] Start: 12-03-2024 Sexual orientation Heterosexual (sharyn nguyen) [facility] Clinical Notes 12-03-2024 to 04-08-2025 Quick Notes - Kate Castanon APRN.CNM - 04/08/2025 4:41 PM EDTPrenatal Quick Notes - Kate Castanon APRN.CNM - 04/08/2025 4:41 PM EDTPatient InstructionsPatient Instructions Note Date & Type Note Facility 04-08-2025 Progress note Formatting of t his note might be different from the original. S: Damon Garza is a 19 year old female who presents at 38 weeks gestation for a routine visit. Positive movements. Denies any cramps or contractions. Requesting CE today for baseline. Denies headache, visual changes, chest pain, shortness of breath, vaginal bleeding, leakage of fluid, or dysuria. Feeling well, no complaints. O: See flow sheet Gen: No apparent distress Abd: Gravid, non tender CE closed ASSESSMENT/PLAN: 1. Supervision of high risk in third trimester 2. Uterine size-date discrepancy, third trimester 3. Group beta Strep positive 4. Muscular ventricular septal defect 5. 38 weeks gestation of CE closed Reviewed postdates IOL vs expectant management. Wanting unmedicated and to await spontaneous labor. Discussed recomendation for IOL at 41 weeks.Risks of stillbirth, aging placenta, macrosomia, meconium and distress discussed. Recommend twice weekly testing with BPP and NST if continues past 41 weeks. - Patient would like induction at 41 weeks- will sign consent and schedule next visit - GBS + treatment throughout labor and delivery - Clear for delivery at [facility] - Labor precautions and timing of contractions reviewed - questions answered - RTO 1 week or sooner if needed Kate Castanon APRN.CNM [facility] 04-08-2025 Miscellaneous Notes S: Damon Garza is a 19 year old female who presents at 38 weeks gestation for a routine visit. Positive movements. Denies any cramps or contractions. Requesting CE today for baseline. Denies headache, visual changes, chest pain, shortness of breath, vaginal bleeding, leakage of fluid, or dysuria. Feeling well, no complaints. O: See flow sheet Gen: No apparent distress Abd: Gravid, non tender CE closed ASSESSMENT/PLAN: 1. Supervision of high risk in third trimester 2. Uterine size-date discrepancy, third trimester 3. Group beta Strep positive 4. Muscular ventricular septal defect 5. 38 weeks gestation of CE closed Reviewed postdates IOL vs expectant management. Wanting unmedicated and to await spontaneous labor. Discussed recomendation for IOL at 41 weeks.Risks of stillbirth, aging placenta, macrosomia, meconium and distress discussed. Recommend twice weekly testing with BPP and NST if continues past 41 weeks. - Patient would like induction at 41 weeks- will sign consent and schedule next visit - GBS + treatment throughout labor and delivery - Clear for delivery at [facility] - Labor precautions and timing of contractions reviewed - questions answered - RTO 1 week or sooner if needed Kate Castanon APRN.CNM documented in this encounter [facility] 04-08-2025 Instructions Yanely Krishnamurthy MA - 04/08/2025 4:29 PM EDT SEQUENTIAL SCREENINGS The [facility] offers sequential screenings for women who are interested in screenings for chromosomal abnormalities and certain defects during a . The sequential screen combines ultrasound and blood tests to determine the risk of chromosomal abnormalities, including Down's Syndrome (Trisomy 21) and Trisomy 18, as well as open neural tube defects including spina bifida. Ultrasound examination is performed between 11 weeks and 13 weeks gestational age. Blood tests are drawn after the ultrasound and again later in the between 15 and 21 weeks gestational age. Please let your physician know if you are interested in this testing. It will require an appointment with our ear mold laboratory technician. This is not an ultrasound performed by a physician in our office during a routine visit. SIGNS AND SYMPTOMS OF LABOR 1. Contractions every 10 minutes or more often 2. Clear, pink, or brownish fluid (water) leaking from vagina 3. Feeling that baby is pushing down, pressure 4. Low, dull backache 5. Cramps that feel like a period 6. Cramps with or without diarrhea If you notice any of the above symptoms, contact our office at [phone] and ask to speak with a nurse. After hours, you can call doctors registry at [phone] OR call [facility] at [phone] and ask to have the doctor occupational health professional paged. If you consider this an emergency, dial 9-1-6 or go to your nearest emergency department. NEED HELP? Are you dealing with a violent or abusive relationship? Are you a victim of rape or sexual assult? Call [facility] ([place]) 24 hour Crisis Hotline: 805.210.7903 or 733-215-8546. MANUAL Your Guide to a Healthy manual is now on-line. Visit [email or web address]/HealthyPregn ancyGuide to download your free copy documented in this encounter [facility] 04-05-2025 Note HNO ID: [id number] Author: DOMINICK PAIZ, ? Service: ? Author Type: Patient Privacy Officer Type: Progress Notes Filed: 04/05/2025 08:20 Note Text: POPULATION HEALTH NAVIGATION OUTREACH Action/FYI 3rd attempt left message to add digital content marketing manager to ob provider field Est care and scheduled PP to pcp Reason for Outreach Medicaid OB/Peds Care Gaps due: to PCP Visit Patient Contacted: Unable or unnecessary to reach patient: Unable to reach patient Left message Navigation Signature: Dominick Paiz Population Health Navigator April 05, 2025 8:19 AM [facility] 04-04-2025 Note HNO ID: [id number] Author: DOMINICK PAIZ, ? Service: ? Author Type: Patient Privacy Officer Type: Progress Notes Filed: 04/04/2025 08:41 Note Text: POPULATION HEALTH NAVIGATION OUTREACH Action/FYI Unable to reach patient to add digital content marketing manager and PP to PCP Reason for Outreach Medicaid OB/Peds Care Gaps due: to PCP Visit Patient Contacted: Unable or unnecessary to reach patient: Unable to reach patient Unable to leave message MyChart message sent Navigation Signature: Dominick Paiz Population Health Navigator April 04, 2025 8:40 AM [facility] 04-04-2025 History of Presen t illness Narrative POPULATION HEALTH NAVIGATION OUTREACH Action/I Unable to reach patient to add digital content marketing manager and PP to PCP Reason for Outreach Medicaid OB/Peds Care Gaps due: to PCP Visit Patient Contacted: Unable or unnecessary to reach patient: Unable to reach patient Unable to leave message IntelliMat message sent Navigation Signature: Dominick Paiz Population Health Navigator April 04, 2025 8:40 AM documented in this encounter [facility] 04-04-2025 Note Patient Outreach (NE TNAV) DAMON GARZA ([id number]) 5 F Date Time Provider Department 04/04/25 DOMINICK PAIZ During your visit today, we recorded the following information about you: Dominick Paiz 04/04/2025 8:41 AM Signed POPULATION HEALTH NAVIGATION OUTREACH Action/ Unable to reach patient to add digital content marketing manager and PP to PCP Reason for Outreach Medicaid OB/Peds Care Gaps due: to PCP Visit Patient Contacted: Unable or unnecessary to reach patient: Unable to reach patient Unable to leave message Int[employer] message sent Navigation Signature: Dominick Paiz Population Health Navigator April 04, 2025 8:40 AM Dominick Paiz 04/05/2025 8:20 AM Signed POPULATION HEALTH NAVIGATION OUTREACH Action/FYI 3rd attempt left message to add digital content marketing manager to ob provider field Est care and scheduled PP to pcp Reason for Outreach Medicaid OB/Peds Care Gaps due: to PCP Visit Patient Contacted: Unable or unnecessary to reach patient: Unable to reach patient Left message Navigation Signature: Dominick Paiz Population Health Navigator April 05, 2025 8:19 AM Allergies As of Date: 04/04/2025 (No Known Allergies) Date Reviewed: 03/30/2025 Reviewed by: Gia Russo MA - Fully Assessed Reason for Visit: Population Health Navigation Outreach [3910] Cmt: to PCP/OB Prescriptions as of 04/05/2025 - aspirin, enteric coated (ECOTRIN LOW STRENGTH) 81 mg EC tablet Take 1 tablet by mouth once daily. - Friiggik-Am-Jbt-Fe-FA tab Take 1 tablet by mouth once daily. Problem List As Of Date 04/04/2025 Noted Resolved Supervision of high risk in third tri*12/06/2024 Late care [O09.30] 12/06/2024 Rubella non-immune status, antepartum [O09.899,*12/08/2024 Muscular ventricular septal defect (HCC) [Q21.0]12/15/2024 Group beta Strep positive [B95.1] 03/23/2025 Encounter Status:Closed by DOMINICK PAIZ on 04/04/25 [facility] 03-30-2025 Progress note Formatting of t his note might be different from the original. BARRETT-S: Damon Garza is a 19 year old female who presents at 37w3d with PRETTY:04/17/2025, by Last Menstrual Period for a routine visit. Denies headache, visual changes, chest pain, shortness of breath, vaginal bleeding, leakage of fluid, or dysuria. Feeling well, no complaints. O: See flow sheet Gen: No apparent distress Abd: Gravid, nontender ASSESSMENT/PLAN: 1. Supervision of high risk in third trimester -Continue PNV and ASA 2. 37 weeks gestation of 3. Uterine size-date discrepancy, third trimester -US on 03/22 49th percentile 4. Late care 5. Group beta Strep positive -GBS prophylaxis during labor 6. Muscular ventricular septal defect -[facility] pediatricians aware, ok for delivery at [facility] PTL precautions reviewed and when to call RTO in 1 week Wanda Gardiner APRN.CNM [facility] 03-30-2025 Miscellaneous Notes BARRETT-S: Damon Garza is a 19 year old female who presents at 37w3d with PRETTY:04/17/2025, by Last Menstrual Period for a routine visit. Denies headache, visual changes, chest pain, shortness of breath, vaginal bleeding, leakage of fluid, or dysuria. Feeling well, no complaints. O: See flow sheet Gen: No apparent distress Abd: Gravid, nontender ASSESSMENT/PLAN: 1. Supervision of high risk in third trimester -Continue PNV and ASA 2. 37 weeks gestation of 3. Uterine size-date discrepancy, third trimester -US on 03/22 49th percentile 4. Late care 5. Group beta Strep positive -GBS prophylaxis during labor 6. Muscular ventricular septal defect -[facility] pediatricians aware, ok for delivery at [facility] PTL precautions reviewed and when to call RTO in 1 week Wanda Gardiner APRN.CNM documented in this encounter [facility] 03-30-2025 Note HNO ID: [id number] Author: WANDA GARDINER APRN.CNM Service: ? Author Type: Seasonal Driver Type: Progress Notes Filed: 03/30/2025 10:10 Note Text: BARRETT- [facility] 03-30-2025 History of Presen t illness Narrative BARRETT- documented in this encounter [facility] 03-30-2025 Instructions Gia Russo MA - 03/30/2025 9:43 AM EDT SEQUENTIAL SCREENINGS The [facility] offers sequential screenings for women who are interested in screenings for chromosomal abnormalities and certain defects during a . The sequential screen combines ultrasound and blood tests to determine the risk of chromosomal abnormalities, including Down's Syndrome (Trisomy 21) and Trisomy 18, as well as open neural tube defects including spina bifida. Ultrasound examination is performed between 11 weeks and 13 weeks gestational age. Blood tests are drawn after the ultrasound and again later in the between 15 and 21 weeks gestational age. Please let your physician know if you are interested in this testing. It will require an appointment with our ear mold laboratory technician. This is not an ultrasound performed by a physician in our office during a routine visit. SIGNS AND SYMPTOMS OF LABOR 1. Contractions every 10 minutes or more often 2. Clear, pink, or brownish fluid (water) leaking from vagina 3. Feeling that baby is pushing down, pressure 4. Low, dull backache 5. Cramps that feel like a period 6. Cramps with or without diarrhea If you notice any of the above symptoms, contact our office at [phone] and ask to speak with a nurse. After hours, you can call doctors registry at [phone] OR call [facility] at [phone] and ask to have the doctor occupational health professional paged. If you consider this an emergency, dial 9-1-3 or go to your nearest emergency department. NEED HELP? Are you dealing with a violent or abusive relationship? Are you a victim of rape or sexual assult? Call [facility] ([place]) 24 hour Crisis Hotline: 415.125.1290 or 881-588-7099. MANUAL Your Guide to a Healthy manual is now on-line. Visit [email or web address] to download your free copy documented in this encounter [facility] 03-22-2025 Note Indication Evaluation of growth. Discrepancy between uterine size and clinical dates Muscular ventricular septal defect (VSD) Impression - Single, live, intrauterine . - presentation is cephalic. - The biometry is consistent with the assigned gestational dating. - The EFW is 2862 g, at the 49%. AC is at the 75%. - Amniotic fluid volume is normal amount with an MVP of 4.3 cm and JAMAL of 13.8 cm. - The placenta is posterior. - No malformations visualized on a limited survey as detailed below. VSD difficult to visualize today given position. Recommendations Additional follow-up as clinically indicated. Maternal Assessment Height 163 cm Height (ft) 5 ft Height (in) 4 in Physical Exam Initial weight (lb) 126 lb Initial BMI 21.63 kg/m Maternal assessment other: 1 Para 0 Method Transabdominal ultrasound examination, Color Doppler examination. View: Adequate visualization Drummond . Number of fetuses: 1 Dating GA by prior assessment 36 w + 2 d PRETTY by prior assessment: 04/17/2025 Ultrasound examination on: 03/22/2025 GA by U/S based upon: AC, BPD, Femur, HC GA by U/S 35 w + 6 d PRETTY by U/S: 04/20/2025 Assigned: based on stated PRETTY, selected on 12/14/2024 Assigned GA 36 w + 2 d Assigned PRETTY: 04/17/2025 General Evaluation Cardiac activity present. FHR 135 bpm. movements: present. Presentation: cephalic Placenta: Placental site: posterior Umbilical cord: Cord vessels: 3 vessel cord Amniotic fluid: Amount of AF: normal amount. MVP 4.3 cm. JAMAL 13.8 cm. Q1 3.5 cm, Q2 4.2 cm, Q3 1.7 cm, Q4 4.3 cm Growth Overview Exam date GA BPD (mm) HC (mm) AC (mm) FL (mm) HL (mm) EFW (g) 12/14/2024 22w 2d 49.1 6% 192.4 27% 164.1 18% 37.9 63% 36.9 67% 443 18% 03/22/2025 36w 2d 88.2 42% 330.3 60% 328.7 75% 66.4 20% 2862 49% Biometry Standard BPD 88.2 mm 35w 5d 42% Hadlock OFD 117.5 mm -/- 71% Nicolaides HC 330.3 mm 37w 0d 60% Rozina AC 328.7 mm 36w 5d 75% Hadlock Femur 66.4 mm 33w 6d 20% Rozina EFW 2,862 g 36w 2d 49% Hadlock EFW (lb) 6 lb EFW (oz) 5 oz EFW by: Hadlock (HC-AC-FL) Extended Machine Welt Butter 3.7 mm Extremities / Bony Struc FL / HC 0.20 Other Structures FHR 135 bpm Anatomy Lateral ventricles: normal Cavum septi pellucidi: normal Cerebellum: normal Cisterna magna: normal 4-chamber view: abnormal RVOT view: normal LVOT view: normal 3-vessel view: normal Heart / Thorax Situs: situs solitus (normal) Diaphragm: normal Stomach: normal Kidneys: normal Bladder: normal sex: female Wants to know sex: yes Performed By: Ariana Mcbride RDMS Read By: Pao Johnosn M.D. [facility] 03-21-2025 Note HNO ID: [id number] Author: MUMTAZ MORALES APRN.BREAD BAKER Service: ? Author Type: Nurse Practitioner Type: Progress Notes Filed: 03/23/2025 08:30 Note Text: EH - S: Damon is a 19 year old female who presents at 36w1d for a routine visit. Feeling movement. Denies headache, visual changes, chest pain, shortness of breath, vaginal bleeding, leakage of fluid, or dysuria. Feeling well, no complaints. O: See flow sheet Gen: No apparent distress Abd: Gravid, nontender, S ASSESSMENT/PLAN: 1. Supervision of high risk in third trimester ([facility]) - ICD9: V23.9, ICD10: O09.93 (primary diagnosis) - Continue PNV and LDA 2. 36 weeks gestation of ([facility]) - ICD9: V22.2, ICD10: Z3A.36 - GBS today 3. Muscular ventricular septal defect ([facility]) - ICD9: 745.4, ICD10: Q21.0 - Cleared for delivery at [facility] 4. Uterine size-date discrepancy, third trimester ([facility]) - ICD9: 649.63, ICD10: O26.843 - S labor precautions and kick counts reviewed. RTO 1 in week or sooner as needed. Mumtaz Morales APRN.BREAD BAKER [facility] 03-21-2025 History of Presen t illness Narrative EH - S: Damon is a 19 year old female who presents at 36w1d for a routine visit. Feeling movement. Denies headache, visual changes, chest pain, shortness of breath, vaginal bleeding, leakage of fluid, or dysuria. Feeling well, no complaints. O: See flow sheet Gen: No apparent distress Abd: Gravid, nontender, S<D ASSESSMENT/PLAN: 1. Supervision of high risk in third trimester ([facility]) - ICD9: V23.9, ICD10: O09.93 (primary diagnosis) - Continue PNV and LDA 2. 36 weeks gestation of ([facility]) - ICD9: V22.2, ICD10: Z3A.36 - GBS today - ultrasound 3. Muscular ventricular septal defect (HCC) - ICD9: 745.4, ICD10: Q21.0 - Cleared for delivery at [facility] 4. Uterine size-date discrepancy, third trimester ([facility]) - ICD9: 649.63, ICD10: O26.843 - S<D, growth ordered labor precautions and kick counts reviewed. RTO 1 in week or sooner as needed. Mumtaz Morales APRN.BREAD BAKER documented in this encounter [facility] 03-21-2025 Instructions Yanely Krishnamurthy MA - 03/21/2025 7:58 AM EDT SEQUENTIAL SCREENINGS The [facility] offers sequential screenings for women who are interested in screenings for chromosomal abnormalities and certain defects during a . The sequential screen combines ultrasound and blood tests to determine the risk of chromosomal abnormalities, including Down's Syndrome (Trisomy 21) and Trisomy 18, as well as open neural tube defects including spina bifida. Ultrasound examination is performed between 11 weeks and 13 weeks gestational age. Blood tests are drawn after the ultrasound and again later in the between 15 and 21 weeks gestational age. Please let your physician know if you are interested in this testing. It will require an appointment with our ear mold laboratory technician. This is not an ultrasound performed by a physician in our office during a routine visit. SIGNS AND SYMPTOMS OF LABOR 1. Contractions every 10 minutes or more often 2. Clear, pink, or brownish fluid (water) leaking from vagina 3. Feeling that baby is pushing down, pressure 4. Low, dull backache 5. Cramps that feel like a period 6. Cramps with or without diarrhea If you notice any of the above symptoms, contact our office at [phone] and ask to speak with a nurse. After hours, you can call [facility] at [phone] OR call [facility] at [phone] and ask to have the doctor occupational health professional paged. If you consider this an emergency, dial 9-1-5 or go to your nearest emergency department. NEED HELP? Are you dealing with a violent or abusive relationship? Are you a victim of rape or sexual assult? Call [facility] ([place]) 24 hour Crisis Hotline: 751.809.1069 or 193-544-2596. MANUAL Your Guide to a Healthy manual is now on-line. Visit [email or web address] to download your free copy documented in this encounter [facility] 03-16-2025 Progress note Formatting of t his note might be different from the original. S: Damon Garza is a 19 year old female who presents at 35 weeks gestation for a routine visit. Positive movements. Denies any cramps or contractions. Denies headache, visual changes, chest pain, shortness of breath, vaginal bleeding, leakage of fluid, or dysuria. Feeling well, no complaints. O: See flow sheet Gen: No apparent distress Abd: Gravid, nontender ASSESSMENT/PLAN: 1. 35 weeks gestation of 2. Supervision of high risk in third trimester 3. Encounter for supervision of high risk due to anomaly, 4. Muscular ventricular septal defect - - Clear for delivery at [facility] precautions and kick counts reviewed - RTO 1 week or sooner if needed Kate Castanon APRN.CNM [facility] 03-16-2025 Miscellaneous Notes S: Damon Garza is a 19 year old female who presents at 35 weeks gestation for a routine visit. Positive movements. Denies any cramps or contractions. Denies headache, visual changes, chest pain, shortness of breath, vaginal bleeding, leakage of fluid, or dysuria. Feeling well, no complaints. O: See flow sheet Gen: No apparent distress Abd: Gravid, nontender ASSESSMENT/PLAN: 1. 35 weeks gestation of 2. Supervision of high risk in third trimester 3. Encounter for supervision of high risk due to anomaly, 4. Muscular ventricular septal defect - - Clear for delivery at [facility] - PTL precautions and kick counts reviewed - RTO 1 week or sooner if needed Kate Castanon APRN.CNM documented in this encounter [facility] 03-16-2025 Instructions Bessy Willis MA - 03/16/2025 1:17 PM EDT SEQUENTIAL SCREENINGS The [facility] offers sequential screenings for women who are interested in screenings for chromosomal abnormalities and certain defects during a . The sequential screen combines ultrasound and blood tests to determine the risk of chromosomal abnormalities, including Down's Syndrome (Trisomy 21) and Trisomy 18, as well as open neural tube defects including spina bifida. Ultrasound examination is performed between 11 weeks and 13 weeks gestational age. Blood tests are drawn after the ultrasound and again later in the between 15 and 21 weeks gestational age. Please let your physician know if you are interested in this testing. It will require an appointment with our ear mold laboratory technician. This is not an ultrasound performed by a physician in our office during a routine visit. SIGNS AND SYMPTOMS OF LABOR 1. Contractions every 10 minutes or more often 2. Clear, pink, or brownish fluid (water) leaking from vagina 3. Feeling that baby is pushing down, pressure 4. Low, dull backache 5. Cramps that feel like a period 6. Cramps with or without diarrhea If you notice any of the above symptoms, contact our office at [phone] and ask to speak with a nurse. After hours, you can call doctors registry at [phone] OR call [facility] at [phone] and ask to have the doctor occupational health professional paged. If you consider this an emergency, dial or go to your nearest emergency department. NEED HELP? Are you dealing with a violent or abusive relationship? Are you a victim of rape or sexual assult? Call [facility] ([facility] 24 hour Crisis Hotline: 942.699.9181 or 822-181-0603. MANUAL Your Guide to a Healthy manual is now on-line. Visit [email or web address] [email or web address] to download your free copy documented in this encounter [facility] 03-08-2025 Telephone encounter Note 2nd risk assessment form submitted 03/08/25 Danna Olivera RN [facility] 03-08-2025 Miscellaneous Notes 2nd risk assessment form submitted 03/08/25 Danna Olivera RN documented in this encounter [facility] 03-02-2025 Note HNO ID: [id number] Author: GINGER SORIANO MD Service: ? Author Type: Physician Type: Progress Notes Filed: 03/02/2025 10:11 Note Text: Dr. Destini Langley NAME: Damon Garza CLINIC Number.: [id number] Date of : 2005 Date of Visit: March 02, [address] Langley, Ms. Damon Garza was seen for echocardiogram and pediatric cardiology consultation on March 02, 2025. She is a 19 year old woman, referred due to possible VSD seen on ultrasound. She herself has no significant past medical history. There is no family history of congenital heart disease. echocardiogram on March 02, 2025 at 33 weeks 2 days gestation shows 1. There is a suggestion of a very small mid-muscular VSD; in some of the views it does not appear to completely cross the septum. 2. Normal left ventricular size and wall thickness with normal systolic function. 3. Qualitatively normal right ventricular size and wall thickness with normal systolic function. 4. Aortic arch is widely patent. 5. Ductal arch is widely patent with normal intrauterine right to left flow. 6. Normal heart rate and rhythm and normal Dopplers. 7. No pericardial effusion. In summary, the echocardiogram today showed overall normal intracardiac anatomy with normal ventricular function and normal heart rate and rhythm. There is a suggestion of a VSD, but it does not appear to completely cross the septum. It is possible the VSD is closing and may completely resolve by delivery. We discussed these findings with Ms. Damon Garza. In addition, the limitations of the echocardiogram and echocardiography in general, including the inability to exclude ASDs, some VSDs, minor valvar abnormalities, partial anomalous pulmonary venous return, persistent patent ductus arteriosus, and coarctation of the aorta, were explained. Delivery is planned in [place]. If there is a murmur or other concern after delivery, Cardiology evaluation can be done. Thank you for allowing me to participate in the care of your patient and please do not hesitate to contact me if I can be any further assistance. During this patient visit I have reviewed prior notes and imaging including from referring maternal medicine specialists, devoted time to counseling/coordination of care regarding results of the echocardiogram, clincal manifestations of the identified disease, prognosis, test results and treatment options, formulated and provided my recommendations to other caregivers by verbal and written communication as appropriate and assisted in coordination of care as needed. I spent a total of 55 minutes on the date of the service which included preparing to see the patient, dgyw-dg-meet patient care, completing clinical documentation, obtaining and/or reviewing separately obtained history, performing a medically appropriate examination, counseling and educating the patient/family/caregiver, ordering medications, tests, or procedures, communicating with other HCPs (not separately reported), independently interpreting results (not separately reported), communicating results to the patient/family/caregiver, and care coordination (not separately reported). Sincerely, Dr. Ginger Soriano [facility] 01-25-2025 Note HNO ID: [id number] Author: KAYDEN ACEVEDO MA Service: ? Author Type: Receiving Weigher Type: Progress Notes Filed: 01/25/2025 12:21 Note Text: Patient identified by name and date of . Damon Garza presents today for a vaccination of Tdap. Patient denies an allergy to latex: yes Patient denies a severe (life-threatening) allergy to a previous dose of Tdap, DTP, DTaP, DT or Td vaccine. Yes Patient denies history of epilepsy or neurological problems: Yes Patient is afebrile and denies being moderately or severely ill: Yes Patient denies history of Guillain-Howard Syndrome (a severe paralytic illness): Yes Tdap Adacel injection was given without incident. See immunizations for details of immunizations administered today. VIS sheet provided: Yes Provider Wanda Gardiner APRN CNM was present in office at time of injection. Kayden Acevedo MA [facility] 01-25-2025 History of Presen t illness Narrative Patient identified by name and date of . Damon Garza presents today for a vaccination of Tdap. Patient denies an allergy to latex: yes Patient denies a severe (life-threatening) allergy to a previous dose of Tdap, DTP, DTaP, DT or Td vaccine. Yes Patient denies history of epilepsy or neurological problems: Yes Patient is afebrile and denies being moderately or severely ill: Yes Patient denies history of Guillain-Howard Syndrome (a severe paralytic illness): Yes Tdap Adacel injection was given without incident. See immunizations for details of immunizations administered today. VIS sheet provided: Yes Provider Wanda Gardiner APRN CNM was present in office at time of injection. Kayden Acevedo MA BARRETT-S: Damon Garza is a 19 year old female who presents at 28w2d with PRETTY:04/17/2025, by Last Menstrual Period for a routine visit. Denies headache, visual changes, chest pain, shortness of breath, vaginal bleeding, leakage of fluid, or dysuria. Feeling well, no complaints. O: See flow sheet Gen: No apparent distress Abd: Gravid, nontender ASSESSMENT/PLAN: 1. Encounter for supervision of high risk due to anomaly, second trimester - 1 hour GCT, CBC, and RPR today - O positive - TDAP today - LARC form reviewed and signed. Patient declines - Depression screen negative - Opioid screen negative - plan form discussed and given to patient. 2. Late care 3. 28 weeks gestation of 4. Muscular ventricular septal defect - echo on 02/08/25 5. Rubella non-immune status, antepartum -Reviewed recommendation for vaccination PP and avoid sick contacts - PTL precautions and kick counts reviewed - RTO- 2 weeks or sooner if needed Wanda Gardiner APRN.CNM documented in this encounter [facility] 01-25-2025 Note HNO ID: [id number] Author: WANDA GARDINER APRN.CNM Service: ? Author Type: Seasonal Driver Type: Progress Notes Filed: 01/25/2025 12:21 Note Text: BARRETT-S: Damon Garza is a 19 year old female who presents at 28w2d with PRETTY:04/17/2025, by Last Menstrual Period for a routine visit. Denies headache, visual changes, chest pain, shortness of breath, vaginal bleeding, leakage of fluid, or dysuria. Feeling well, no complaints. O: See flow sheet Gen: No apparent distress Abd: Gravid, nontender ASSESSMENT/PLAN: 1. Encounter for supervision of high risk due to anomaly, second trimester - 1 hour GCT, CBC, and RPR today - O positive - TDAP today - LARC form reviewed and signed. Patient declines - Depression screen negative - Opioid screen negative - plan form discussed and given to patient. 2. Late care 3. 28 weeks gestation of 4. Muscular ventricular septal defect - echo on 02/08/25 5. Rubella non-immune status, antepartum -Reviewed recommendation for vaccination PP and avoid sick contacts - PTL precautions and kick counts reviewed - RTO- 2 weeks or sooner if needed Wanda Gardiner APRN.CNM [facility] 01-13-2025 Telephone encounter Note 2nd risk assessment form submitted 01/13/25 Danna Olivera RN [facility] 01-13-2025 Miscellaneous Notes 2nd risk assessment form submitted 01/13/25 Danna Olivera RN documented in this encounter [facility] 01-11-2025 Progress note Formatting of t his note might be different from the original. KJ - S: Damon denies LOF, contractions or vaginal bleeding. O: 26w2d, see flow sheet SENSITIVE EXAM: Sensitive exam not performed. A/P: Assessment & Plan High risk teen in second trimester (HCC) Orders: SYPHILIS TREPONEMAL W/REFLEX; Future ANEMIA REFLEX PANEL; Future Screening for diabetes mellitus Orders: GESTATIONAL GLUCOSE SCREEN, 1-HOUR, 50 GRAM, NON-FASTING; Future Suspected anomaly, antepartum, single or unspecified fetus (HCC) echo scheduled on 01/17 for possible VSD. Reviewed PTL & FM precautions Destini Langley MD [facility] 01-11-2025 Miscellaneous Notes KJ - S: Damon denies LOF, contractions or vaginal bleeding. O: 26w2d, see flow sheet SENSITIVE EXAM: Sensitive exam not performed. A/P: Assessment & Plan High risk teen in second trimester (HCC) Orders: SYPHILIS TREPONEMAL W/REFLEX; Future ANEMIA REFLEX PANEL; Future Screening for diabetes mellitus Orders: GESTATIONAL GLUCOSE SCREEN, 1-HOUR, 50 GRAM, NON-FASTING; Future Suspected anomaly, antepartum, single or unspecified fetus (HCC) echo scheduled on 01/17 for possible VSD. Reviewed PTL & FM precautions Destini Langley MD documented in this encounter [facility] 01-11-2025 Instructions Bessy Willis MA - 01/11/2025 9:54 AM EDT SEQUENTIAL SCREENINGS The [facility] offers sequential screenings for women who are interested in screenings for chromosomal abnormalities and certain defects during a . The sequential screen combines ultrasound and blood tests to determine the risk of chromosomal abnormalities, including Down's Syndrome (Trisomy 21) and Trisomy 18, as well as open neural tube defects including spina bifida. Ultrasound examination is performed between 11 weeks and 13 weeks gestational age. Blood tests are drawn after the ultrasound and again later in the between 15 and 21 weeks gestational age. Please let your physician know if you are interested in this testing. It will require an appointment with our ear mold laboratory technician. This is not an ultrasound performed by a physician in our office during a routine visit. SIGNS AND SYMPTOMS OF LABOR 1. Contractions every 10 minutes or more often 2. Clear, pink, or brownish fluid (water) leaking from vagina 3. Feeling that baby is pushing down, pressure 4. Low, dull backache 5. Cramps that feel like a period 6. Cramps with or without diarrhea If you notice any of the above symptoms, contact our office at [phone] and ask to speak with a nurse. After hours, you can call doctors registry at [phone] OR call [facility] at [phone] and ask to have the doctor occupational health professional paged. If you consider this an emergency, dial or go to your nearest emergency department. NEED HELP? Are you dealing with a violent or abusive relationship? Are you a victim of rape or sexual assult? Call [facility] ([place]) 24 hour Crisis Hotline: 296.345.6527 or 916-608-2884. MANUAL Your Guide to a Healthy manual is now on-line. Visit [email or web address] to download your free copy documented in this encounter [facility] 12-14-2024 Note Addended by: ALBERTO FINCH on: 12/14/2024 04:22 PM Modules accepted: Orders [facility] 12-14-2024 Miscellaneous Notes Addended by: ALBERTO FINCH on: 12/14/2024 04:22 PM Modules accepted: Orders documented in this encounter [facility] 12-14-2024 Note HNO ID: [id number] Author: ALBERTO FINCH MD Service: ? Author Type: Physician Type: Progress Notes Filed: 12/14/2024 15:42 Note Text: Patient here for routine anatomy scan. See ultrasound report for details. [facility] 12-14-2024 History of Presen t illness Narrative Patient here for routine anatomy scan. See ultrasound report for details. [facility] documented in this encounter [facility] 12-07-2024 Telephone encounter Note 1st risk assessment form submitted 12/07/2024. Natalya Mendoza RN [facility] 12-07-2024 Miscellaneous Notes 1st risk assessment form submitted 12/07/2024. Natalya Mendoza RN documented in this encounter [facility] 12-06-2024 Progress note Formatting of t his note might be different from the original. Patient is at 21.1 weeks gestation here for NOB. This is patient's first visit. Seen in early by support center and had ultrasound completed. Needs labs and anatomy US. Proof of letter provided for [facility] services. Kate Castanon APRN.CNM [facility] 12-06-2024 Miscellaneous Notes Patient is at 21.1 weeks gestation here for NOB. This is patient's first visit. Seen in early by support center and had ultrasound completed. Needs labs and anatomy US. Proof of letter provided for [facility] services. Kate Castanon APRN.CNM documented in this encounter [facility] 12-06-2024 Note HNO ID: [id number] Author: KATE CASTANON APRN.CNM Service: ? Author Type: Seasonal Driver Type: Progress Notes Filed: 12/06/2024 13:40 Note Text: NO POC US completed due to patient being 21 weeks gestation. Kate Castanon APRN.CNM [facility] 12-06-2024 History of Presen t illness Narrative NO POC US completed due to patient being 21 weeks gestation. Kate Castanon APRN.CNM INITIAL OB ASSESSMENT HPI: Damon is a 19 year old White Female here to establish Obstetrical Care. Patient's last menstrual period was 07/11/2024. from OB Dating Form. was unplanned but accepted Complaints: No OB History Gravida1 Para0 Term0 Preterm0 AB0 Living0 SAB0 IAB0 Ectopic0 Multiple0 Live Births0 Previous history: Prior : never History of 4th degree laceration: NA History of shoulder dystocia: No History of Hypertensive disorders including pre-eclampsia or gestational hypertension: No History of gestational diabetes: No Patient's Risk Screening for delivery: Have you had a prior drummond between 20w and 36w6d? No How many pregnancies have you had before? 0 Did you have a previous baby with a GBS Infection? No Please select all that apply for any prior : N/A MEDICAL/PSYCHOSOCIAL HISTORY: History of hemorrhage or bleeding concerns: No Thyroid Disease: No History of chronic hypertension: No History of pre-existing diabetes: No No results found for: ABORHD BMI 21.76 kg/(m^2) Last Pap: Never History of abnormal pap: No Prior treatment for cervical dysplasia: none. Last HPV: History of STDs: None Partner History of STDs: None Did you have a partner with Herpes? No Tobacco use: No E-Cigarette/Vaping Use: No Caffeine use: Yes Drug use: No Alcohol use: No Multivitamin with Folic acid: No Would refuse blood transfusion if medically necessary: No Social Needs: How often does this describe you? I don't have enough money to pay my bills: Never Within the past 12 months, have you worried that your food would run out before you had money to buy more? Never In the past 12 months, has lack of reliable transportation kept you from going to medical appointments or work, or from getting things needed for daily living? Never In the past 12 months, have you had any concerns about having a place to live, or about the condition or quality of your housing? Never Would you like more information on any of the following (please check all that apply)? Not interested Social History: Do you have any history of depression, anxiety, PTSD, or other mood problems? No Do you have a history of abuse or trauma that may impact your experience? No Are you currently employed? Yes Depression/Anxiety Screening: denies symptoms of depression. OB Depression and Anxiety Screening- This Encounter (since 12/05/2024) Over the past 2 weeks have you felt down, depressed, or hopeless? Negative Over the past two weeks, have you felt little interest or pleasure in doing things? Negative Feeling nervous, anxious or on edge 0-Not at all Not being able to stop or control worrying 0-Not al all Anxiety Pre-Screening Total (If >/= 3 additional questions will be reviewed) 0 Genetic Screening: Partner present: No Patient verbalized knowledge of partner family health history: No Do you or your partner have any personal or family history of defects not previously discussed: No Do you have history of a complicated by anomaly, genetic condition, or demise: No Preeclampsia Risk Screening: Screening for prevention of preeclampsia: High risk factors: None Moderate risk ractors: Nulliparity OB Risk Screening: Completed, no positive findings documented. Marital Status:Single Partner: Name: Demi Age: 30's Occupation:[employer] Gender: Male History reviewed. No pertinent past medical history. History reviewed. No pertinent surgical history. No current outpatient medications on file. No current facility-administered medications for this visit. Allergies As of Date: 12/06/2024 (Not on File) Fully Assessed 12/06/2024 Does patient have penicillin allergy: No REVIEW OF SYSTEMS: GENERAL: Negative for: Fever or Chills HEENT: Negative for: Headache, Impaired Vision, Ringing in Ears, Nosebleeds NECK: Negative for: Swelling, Pain, Stiffness RESPIRATORY: Negative for: Cough, Shortness of breath, Wheezing GASTROINTESTINAL: Negative for: Heartburn, Constipation, Diarrhea, Blood in stool, Vomiting MUSCULOSKELETAL: Negative for: Muscle or joint pain, stiffness, Joint swelling NEUROLOGIC/PSYCHIATRIC: Negative for: Weakness, Paralysis, Numbness, Tingling, Tremor, Anxiety, Depression, Memory loss SKIN: Negative for: Rash, Itching GENITOURINARY: Negative for: vaginal itching, vaginal discharge, hematuria or dysuria SENSITIVE EXAM: The sensitive examination was discussed with the Patient or Patient's Authorized Conventions Reservationist. As applicable, any other physician, advance practice provider, medical student, or other health professional student that will be observing or involved in the sensitive examination for educational or training purposes was discussed with the Patient or Authorized Conventions Reservationist. The Patient or Authorized Conventions Reservationist has agreed to proceed with the sensitive examination. (Sensitive examination includes inspection and/or palpation of the breasts, pelvis, prostate and anorectal regions). PHYSICAL EXAM: BP 108/60 Ht 5' 3.8 (1.62m) Wt 126 lb (57.2kg) LMP 07/11/2024 BMI 21.75 kg/(m^2). GENERAL: pleasant in no apparent distress DERMATOLOGY: Normal, without lesions, non-icteric, and non-hirsute NECK: Supple and full range of motion CHEST: Normal inspiratory effort BREAST: soft, non-tender, symmetric, no dominant mass, normal nipple-areolar complex, no lymphadenopathy, no nipple discharge, and fibrocystic changes ABDOMEN: soft, non-tender, and no masses NEURO: alert and oriented x3,exam grossly non-focal PELVIS: External genitalia normal without lesions. Perineal body intact. Cervix closed. Light yellow/frothy discharge present Limited OB ultrasound exam: not performed ASSESSMENT: 19 year old at 21w1d wks gestational age PLAN: 1) Patient oriented to practice. Patient given new OB orientation folder. Discussed nutrition, folic acid supplementation, dietary guidelines, exercise, smoking, alcohol, caffeine, and drug use. Discussed routine OB labs including STD/HIV. Discussed how to access Your guide to a health and the Windows Administrator. Reviewed midwifery and pasteurizer helper services that are available. 2) Screening: Hemoglobin A1C: ordered Baby Aspirin: The patient has been counseled about the potential benefits of low dose aspirin in and our recommendation that this be offered to all patients, regardless of whether they meet the high risk criteria specified above. She Accepts Aneuploidy Screening: Discussed aneuploidy screening, nuchal translucency/first trimester early anatomy ultrasound and NIPT. The risks/benefits and limitations of NIPT/aneuploidy screening were reviewed including the potential for false negative and false positive results. The availability of genetic counseling was reviewed. Information on aneuploidy screening was provided. The patient chooses to proceed with NIPT (10 weeks) Myriad Carrier Screening: Discussed myriad carrier screening. We discussed the availability of professional-society guided carrier screening and reviewed the conditions screened and limitations of screening. The availability of genetic counseling was reviewed. Information on carrier screening was provided. The patient Declines 3) Patient offered option of Virtual Visits. Patient prefers in person visits. - RX for vitamin and ASA sent - Patient needs to schedule anatomy US NELLY-willing to drive to another [facility] location - Sign up for myChart - Labs today Follow up in 4 weeks for IFRAH Castanon APRN.CNM documented in this encounter [facility] 12-03-2024 Note HNO ID: [id number] Author: KATE CASTANON APRN.CNM Service: ? Author Type: Seasonal Driver Type: Progress Notes Filed: 12/06/2024 13:40 Note Text: INITIAL OB ASSESSMENT HPI: Damon is a 19 year old White Female here to establish Obstetrical Care. Patient's last menstrual period was 07/11/2024. from OB Dating Form. was unplanned but accepted Complaints: No OB History Gravida1 Para0 Term0 Preterm0 AB0 Living0 SAB0 IAB0 Ectopic0 Multiple0 Live Births0 Previous history: Prior : never History of 4th degree laceration: NA History of shoulder dystocia: No History of Hypertensive disorders including pre-eclampsia or gestational hypertension: No History of gestational diabetes: No Patient's Risk Screening for delivery: Have you had a prior drummond between 20w and 36w6d? No How many pregnancies have you had before? 0 Did you have a previous baby with a GBS Infection? No Please select all that apply for any prior : N/A MEDICAL/PSYCHOSOCIAL HISTORY: History of hemorrhage or bleeding concerns: No Thyroid Disease: No History of chronic hypertension: No History of pre-existing diabetes: No No results found for: ABORHD BMI 21.76 kg/(m2) Last Pap: Never History of abnormal pap: No Prior treatment for cervical dysplasia: none. Last HPV: History of STDs: None Partner History of STDs: None Did you have a partner with Herpes? No Tobacco use: No E-Cigarette/Vaping Use: No Caffeine use: Yes Drug use: No Alcohol use: No Multivitamin with Folic acid: No Would refuse blood transfusion if medically necessary: No Social Needs: How often does this describe you? I don't have enough money to pay my bills: Never Within the past 12 months, have you worried that your food would run out before you had money to buy more? Never In the past 12 months, has lack of reliable transportation kept you from going to medical appointments or work, or from getting things needed for daily living? Never In the past 12 months, have you had any concerns about having a place to live, or about the condition or quality of your housing? Never Would you like more information on any of the following (please check all that apply)? Not interested Social History: Do you have any history of depression, anxiety, PTSD, or other mood problems? No Do you have a history of abuse or trauma that may impact your experience? No Are you currently employed? Yes Depression/Anxiety Screening: denies symptoms of depression. OB Depression and Anxiety Screening- This Encounter (since 12/05/2024) Over the past 2 weeks have you felt down, depressed, or hopeless? Negative Over the past two weeks, have you felt little interest or pleasure in doing things?? Negative Feeling nervous, anxious or on edge 0-Not at all Not being able to stop or control worrying 0-Not al all Anxiety Pre-Screening Total (If >/= 3 additional questions will be reviewed) 0 Genetic Screening: Partner present: No Patient verbalized knowledge of partner family health history: No Do you or your partner have any personal or family history of defects not previously discussed: No Do you have history of a complicated by anomaly, genetic condition, or demise: No Preeclampsia Risk Screening: Screening for prevention of preeclampsia: High risk factors: None Moderate risk ractors: Nulliparity OB Risk Screening: Completed, no positive findings documented. Marital Status:Single Partner: Name: Demi Age: 30's Occupation:[employer] Gender: Male History reviewed. No pertinent past medical history. History reviewed. No pertinent surgical history. No current outpatient medications on file. No current facility-administered medications for this visit. Allergies As of Date: 12/06/2024 (Not on File) Fully Assessed 12/06/2024 Does patient have penicillin allergy: No REVIEW OF SYSTEMS: GENERAL: Negative for: Fever or Chills HEENT: Negative for: Headache, Impaired Vision, Ringing in Ears, Nosebleeds NECK: Negative for: Swelling, Pain, Stiffness RESPIRATORY: Negative for: Cough, Shortness of breath, Wheezing GASTROINTESTINAL: Negative for: Heartburn, Constipation, Diarrhea, Blood in stool, Vomiting MUSCULOSKELETAL: Negative for: Muscle or joint pain, stiffness, Joint swelling NEUROLOGIC/PSYCHIATRIC: Negative for: Weakness, Paralysis, Numbness, Tingling, Tremor, Anxiety, Depression, Memory loss SKIN: Negative for: Rash, Itching GENITOURINARY: Negative for: vaginal itching, vaginal discharge, hematuria or dysuria SENSITIVE EXAM: The sensitive examination was discussed with the Patient or Patient's Authorized Conventions Reservationist. As applicable, any other physician, advance practice provider, medical student, or other health professional student that will be observing or involved in the sensitive examination for e (more content not included)... [facility] 12-03-2024 Instructions Kayden Acevedo MA - 12/03/2024 12:56 PM EST Please select the following link to access the [facility] Your Guide to a Healthy . [email or web address] Please select the following link to access the [facility] Your Guide to a Healthy . [email or web address] documented in this encounter [facility] Evaluation note Diagnosis with uncertain dates, antepartum- Primary state, incidental 21 weeks gestation of state, incidental Encounter for supervision of high risk due to anomaly, second trimester High risk teen in second trimester Late care Insufficient care [facility] Diagnosis Encounter for routine screening for malformation using ultrasonics- Primary Ventricular septal defect (VSD) of fetus in drummond , antepartum 22 weeks gestation of state, incidental [facility] Diagnosis High risk teen in second trimester ([facility])- Primary Screening for diabetes mellitus Suspected anomaly, antepartum, single or unspecified fetus ([facility]) [facility] Diagnosis Encounter for supervision of high risk due to anomaly, second trimester ([facility])- Primary Late care ([facility]) Insufficient care 28 weeks gestation of ([facility]) state, incidental Muscular ventricular septal defect ([facility]) Ventricular septal defect Rubella non-immune status, antepartum ([facility]) Other specified complication, antepartum Need for vaccination Need for prophylactic vaccination and inoculation against unspecified single disease [facility] Diagnosis 35 weeks gestation of ([facility])- Primary state, incidental Supervision of high risk in third trimester ([facility]) Unspecified high-risk Encounter for supervision of high risk due to anomaly, second trimester ([facility]) Muscular ventricular septal defect ([facility]) Ventricular septal defect [facility]* Diagnosis Supervision of high risk in third trimester ([facility])- Primary Unspecified high-risk 36 weeks gestation of ([facility]) state, incidental Muscular ventricular septal defect ([facility]) Ventricular septal defect Uterine size-date discrepancy, third trimester ([facility]) [facility]* Diagnosis Supervision of high risk in third trimester ([facility]) Unspecified high-risk 36 weeks gestation of ([facility]) state, incidental Muscular ventricular septal defect ([facility]) Ventricular septal defect Uterine size-date discrepancy, third trimester ([facility]) [facility]* Diagnosis Encounter for supervision of high risk due to anomaly, second trimester ([facility])- Primary [facility]* Diagnosis Supervision of high risk in third trimester ([facility])- Primary Unspecified high-risk 37 weeks gestation of ([facility]) state, incidental Uterine size-date discrepancy, third trimester ([facility]) Late care ([facility]) Insufficient care Group beta Strep positive Muscular ventricular septal defect ([facility]) Ventricular septal defect [facility] Diagnosis Supervision of high risk in third trimester ([facility])- Primary Unspecified high-risk Uterine size-date discrepancy, third trimester ([facility]) Group beta Strep positive Muscular ventricular septal defect (HCC) Ventricular septal defect 38 weeks gestation of (HCC) state, incidental documented in this encounter [facility] for visit Narrative* Diagnostic Procedure Only (Routine) - Closed Specialty Diagnoses / Procedures Referred By Agus randhawa Referred To Contact [facility] Diagnoses with uncertain dates, antepartum Procedures OBSTETRIC ULTRASOUND WHI US PREG UTERUS AFTER 1ST TRIMEST GESTATION Kate Castanon APRN.[facility] [address] [place] [address] Phone: tel: fax: [facility] [address] [place] [address] Referral ID Status Reason Start Date Expiration Date V isits Requested Visits Authorized [id number] Closed Auto-Generate d Referral 12/06/2024 12/06/2025 1 1 [facility] Summary Purpose Family History No Family History Records FoundNo Family History Records FoundNo Family History Records FoundNo Family History Records Found Advance Directives No Advanced Directives Records FoundNo Advanced Directives Records FoundNo Advanced Directives Records FoundNo Advanced Directives Records Found Additional Source Comments INFORMATION SOURCE (unrecogn ized section and content) DATE CREATED AUTHOR 01/29/2023 [facility] DATE CREATED AUTHOR AUTHOR'S ORGANIZ ATION 12/26/2024 [facility] DATE CREATED AUTHOR AUTHOR'S ORGANIZ ATION 03/02/2025 [facility] DATE CREATED AUTHOR AUTHOR'S ORGANIZ ATION 04/06/2025 [facility] Source Comments (unrecognize d section and content) In the event this informatio n is protected by the Federal Confidentiality of Alcohol and Drug Abuse Patient Records regulations: The Federal rules restrict any use of the information to criminally investigate or prosecute any alcohol or drug abuse patient.[facility] the event this information is protected by the Federal Confidentiality of Alcohol and Drug Abuse Patient Records regulations: The Federal rules restrict any use of the information to criminally investigate or prosecute any alcohol or drug abuse patient.[facility] the event this information is protected by the Federal Confidentiality of Alcohol and Drug Abuse Patient Records regulations: The Federal rules restrict any use of the information to criminally investigate or prosecute any alcohol or drug abuse patient.[facility]onIn the event this information is protected by the Federal Confidentiality of Alcohol and Drug Abuse Patient Records regulations: The Federal rules restrict any use of the information to criminally investigate or prosecute any alcohol or drug abuse patient.[facility]onIn the event this information is protected by the Federal Confidentiality of Alcohol and Drug Abuse Patient Records regulations: The Federal rules restrict any use of the information to criminally investigate or prosecute any alcohol or drug abuse patient.[facility]onIn the event this information is protected by the Federal Confidentiality of Alcohol and Drug Abuse Patient Records regulations: The Federal rules restrict any use of the information to criminally investigate or prosecute any alcohol or drug abuse patient.[facility]onIn the event this information is protected by the Federal Confidentiality of Alcohol and Drug Abuse Patient Records regulations: The Federal rules restrict any use of the information to criminally investigate or prosecute any alcohol or drug abuse patient.[facility]onIn the event this information is protected by the Federal Confidentiality of Alcohol and Drug Abuse Patient Records regulations: The Federal rules restrict any use of the information to criminally investigate or prosecute any alcohol or drug abuse patient.[facility]onIn the event this information is protected by the Federal Confidentiality of Alcohol and Drug Abuse Patient Records regulations: The Federal rules restrict any use of the information to criminally investigate or prosecute any alcohol or drug abuse patient.[facility]onIn the event this information is protected by the Federal Confidentiality of Alcohol and Drug Abuse Patient Records regulations: The Federal rules restrict any use of the information to criminally investigate or prosecute any alcohol or drug abuse patient.[facility]onIn the event this information is protected by the Federal Confidentiality of Alcohol and Drug Abuse Patient Records regulations: The Federal rules restrict any use of the information to criminally investigate or prosecute any alcohol or drug abuse patient.[facility]onIn the event this information is protected by the Federal Confidentiality of Alcohol and Drug Abuse Patient Records regulations: The Federal rules restrict any use of the information to criminally investigate or prosecute any alcohol or drug abuse patient.[facility]onIn the event this information is protected by the Federal Confidentiality of Alcohol and Drug Abuse Patient Records regulations: The Federal rules restrict any use of the information to criminally investigate or prosecute any alcohol or drug abuse patient.[facility]onIn the event this information is protected by the Federal Confidentiality of Alcohol and Drug Abuse Patient Records regulations: The Federal rules restrict any use of the information to criminally investigate or prosecute any alcohol or drug abuse patient.[facility] Reason for Visit (unrecogniz ed section and content) Reason Comments Initial OB Visit Reason Comments Tip Cutter - Other PRAF Reason Onset Date Comments Care 01/11/2025 Reason Comments PRAF Reason Onset Date Comments Care 03/16/2025 Reason Onset Date Comments Care 03/21/2025 Reason Comments US Specialty Diagnoses / Procedures Referred By Agus t Referred To Contact [facility] Diagnoses Supervision of high risk in third trimester (HCC) 36 weeks gestation of (HCC) Muscular ventricular septal defect (HCC) Uterine size-date discrepancy, third trimester (HCC) Procedures OBSTETRIC ULTRASOUND WHI US PREG UTERUS AFTER 1ST TRIMEST GESTATION Mumtaz Morales APRN.[employer] [address] [place] [address] Phone: tel: fax: [facility] [address] [place] [address] Referral ID Status Reason Start Date Expiration Date V isits Requested Visits Authorized [id number] Closed Auto-Generate d Referral 03/21/2025 03/21/2026 1 1 Reason Onset Date Comments Care 03/30/2025 Reason Onset Date Comments Population Health Navigation Outreach 04/04/2025 to PCP/OB Reason Onset Date Comments Care 04/08/2025 FOR RECORDS PERTAINING TO PATIENTS WHO ARE OR HAVE BEEN ENROLLED IN A CHEMICAL DEPENDENCY/SUBSTANCEABUSE PROGRAM, SOME INFORMATION MAY BE OMITTED. This clinical summary was aggregated from multiple sources. Caution should be exercised in using it in the provision of clinical care. This summary normalizes information from multiple sources, and as a consequence, information in this document may materially change the coding, format and clinical context of patient data. In addition, data may be omitted in some cases. CLINICAL DECISIONS SHOULD BE BASED ON THE PRIMARY CLINICAL RECORDS. [employer] provides no warranty or guarantee of the accuracy or completeness of information in this document.
--- OUTSIDE RECORDS SUMMARY | 2025-04-09 11:49 | XMS RPT_ITS | CCD ---
Author Organization [facility] Care Team Providers Care Computer Builder Name Role Phone RADHA BARAJAS Attending Unavailable REFERRED, SELF Referring Unavailable CAITLYN BRUNNER Primary Care Unavailable CAITLYN BRUNNER Attending Unavailable REFERRED, SELF Referring Unavailable CAITLYN BRUNNER Primary Care Unavailable Unavailable Primary Care Provider Unavaillópez Haley CHILD CARE COOK, Minda Primary Care UnavailNurys Roberson Attending Unavailable Webster CHILD CARE COOK, Ethel Primary Care UnavailJosh Pretty Attending Unavailable Nurys Allan Attending Unavailable Webster CHILD CARE COOK, Ethel Primary Care UnavailGINGER Suggs Attending Unavailable WANDA [...] once daily. 90 tablet 3 12/06/2024 Active Yxaeertn-Hw-Oyg-Fe -FA tab (14 sources) Start: 12-06-2024 take 1 tablet by mouth once daily Jhkueuyi-Gz-Jtp-F e-FA tab Take 1 tablet by mouth [...] trimester; Translations: [Uterine size-date discrepancy, third trimester ([facility])] Onset: 03-30-2025 Episodic Other complications of (1 source) Supervision of other high risk pregnancies, second trimester; Translations: [High risk teen in second trimester ([facility])] Onset: 01-25-2025 Episodic Other screening for suspected [...] of ; Translations: [22 weeks gestation of ([facility])] Onset: 03-01-2025 Episodic Residual codes; unclassified (1 [...] of ; Translations: [37 weeks gestation of ([facility])] Onset: 03-30-2025 Episodic Residual codes; unclassified (1 source) 36 weeks gestation of ; Translations: [36 weeks gestation of ([facility])] Onset: 03-22-2025 Episodic Residual codes; unclassified (1 source) 35 weeks gestation of ; Translations: [35 weeks gestation of ([facility])] Onset: 03-16-2025 Episodic Residual codes; unclassified (1 source) 33 weeks gestation of ; Translations: [33 weeks gestation of ([facility])] Onset: 03-02-2025 Episodic Residual codes; unclassified (1 source) Gestation period, 38 weeks; Translations: [38 weeks gestation of ] 04-08-2025 Episodic Unclassified (1 source) Ventricular septal defect (VSD) of fetus in [place] , antepartum ([facility]); Translations: [Ventricular septal defect (VSD) of fetus in [place] , antepartum ([facility])] Onset: 03-01-2025 Past or Other Problems Problem [...] insufficient care, unspecified trimester; Translations: [Late care ([facility])] Onset: 12-06-2024 Episodic Other and delivery including [...] 5 Glucose Ql (U) Negative Neg mg/dL [facility] Interpretation and review of laboratory results Normal [facility] Protein.monoclonal (U) [Mass/Vol] trace Neg mg/dL [facility] URINE OB DIP B/Oon 5 Glucose Ql (U) Negative Neg mg/dL [facility] Protein.monoclonal (U) [Mass/Vol] trace Neg mg/dL [facility] Examination level ultrasound on 03-22-2025 [facility] Radiology Study observation (narrative) [facility] ROUTINE, GROUP B ST REPTOCOCCUS BY PCRon 03-21-2025 ROUTINE, GROUP B STREPTOCOCCUS BY PCR Detected Abnormal [facility] Comment on above: Performed By: #### G BPCR ####[facility] LABCLIA [id number] [address] [place] URINE OB DIP B/Oon 5 Glucose Ql (U) Negative Neg mg/dL [facility] Interpretation and review of laboratory results Normal [facility] Protein.monoclonal (U) [Mass/Vol] Negative Neg mg/dL [facility] URINE OB DIP B/Oon 5 Glucose Ql (U) Negative Neg mg/dL [facility] Interpretation and review of laboratory results Normal [facility] Protein.monoclonal (U) [Mass/Vol] Negative Neg mg/dL [facility] CNPNon 03-08-2025 CNPN Telephone (OGFVWE) DAMON GARZA ([id number]) 5 F Date Time Provider Department 03/08/25 NURSE SCADA TECHNICIAN FRVW [place] OGFVWE During your visit today, we recorded [...] 1 tablet by mouth once daily. - Qionrufn-Mg-Syl-Fe-FA tab Take 1 tablet by mouth once daily. Problem List As Of Date 03/08/2025 Noted Resolved Encounter for supervision of high risk pregnanc*12/06/2024 Late care [O09.30] 12/06/2024 Rubella non-immune status, antepartum [O09.899,*12/08/2024 Muscular ventricular septal defect (HCC) [Q21.0]12/15/2024 Encounter Status:Closed by DANNA OLIVERA on 03/08/25 [facility] 03-01-2025 GABRIELLAN Telephone (OBGYWM) DAMON GAZRA ([id number]) 5 F Date Time Provider Department 03/01/25 DESTINI LANGLEY During your visit today, we recorded the following information about you: Martha Araujo RN 03/01/2025 1:11 PM Signed [facility] To KJ to sign. CLAIR Paulino [...] 1 tablet by mouth once daily. - Omebkqqh-Eu-Uec-Fe-FA tab Take 1 tablet by mouth once daily. Problem List As Of Date 03/01/2025 Noted Resolved Encounter for supervision of high risk pregnanc*12/06/2024 Late care [O09.30] 12/06/2024 Rubella non-immune status, antepartum [O09.899,*12/08/2024 Muscular ventricular septal defect [Q21.0] 12/15/2024 Encounter Status:Closed by NATALYA PRUITT on 03/04/25 Normal [facility] FETALon 03-01-2025 + - -------+-+ Pediatric Cardiology Echocardiogram Report + -------+-+ NAME: DAMON GARZA : 2005 PT ID#: [id number] Age: 19 years Sex: F STUDY DATE: 03/01/2025 12:54:22 PM PRETTY: 04/17/2025 GA: [id number] Image Quality: The images were of adequate diagnostic quality. Referring Physician: Alberto Finch Diagnosing Physician: Ginger Soriano Skidder Runner: Amy Quinones [facility] 2nd Skidder Runner: Diagnosis: O35.6EY8Amsmndghp abnormality and damage, single fetus or unspecified Procedure Code: 00390, 25986, 90520 Echo, Complete (w/Doppler and color) Exam Location: [facility] (). Indications: Evaluate cardiac anatomy and [...] rate and rhythm. HR 131 bpm Mechanical RI 93 ms Segmental Anatomy, Cardiac Position and [...] on 03/01/2025 at 2:16:13 PM Final CC Mango-Mate Image : [id number] See Link below for Image Normal [facility] CBC W Auto Differential pane l (Bld)on 01-25-2025 Basophils (Bld) [#/Vol] 0.05 10*3/uL Normal <0.11 [facility] Comment on above: Order Comment: Speci men Type: BLOOD SPECIMENOrdering Facility: [facility] Address: [address] [place] [address] Performed By: #### 5 7021-8 ####[facility] [id number] [place] [address] [place] Basophils/100 WBC (Bld) 0.6 % Normal [facility] Comment on above: Order Comment: Speci men Type: BLOOD SPECIMENOrdering Facility: [facility] Address: [address] [place] [address] Performed By: #### 5 7021-8 ####[facility] [id number] [place] [address] [place] Differential cell count method Nom (Bld) Auto Normal [facility] Comment on above: Order Comment: Speci men Type: BLOOD SPECIMENOrdering Facility: [facility] Address: [address] [place] [address] Performed By: #### 5 7021-8 ####[facility] MILLTOWNCLIA [id number] [place] [address] [place] Eosinophils (Bld) [#/Vol] 0.07 10*3/uL Normal <0.46 [facility] Comment on above: Order Comment: Speci men Type: BLOOD SPECIMENOrdering Facility: [facility] Address: [address] [place] [address] Performed By: #### 5 7021-8 ####[facility] MILLWNRADALIA [id number] [place] [address] [place] Eosinophils/100 WBC (Bld) 0.8 % Normal [facility] Comment on above: Order Comment: Speci men Type: BLOOD SPECIMENOrdering Facility: [facility] Address: [address] [place] [address] Performed By: #### 5 7021-8 ####[facility] ERWNCLIA [id number] [place] [address] [place] Erythrocyte distribution width (RBC) [Ratio] 12.0 % Normal 11.5-15.0 [facility] Comment on above: Order Comment: Speci men Type: BLOOD SPECIMENOrdering Facility: [facility] Address: [address] [place] [address] Performed By: #### 5 7021-8 ####[facility] MILLTOWNCLIA [id number] [place] [address] [place] Hematocrit (Bld) [Volume fraction] 32.6 % Low 36.0-46.0 [facility] Comment on above: Order Comment: Speci men Type: BLOOD SPECIMENOrdering Facility: [facility] Address: [address] [place] [address] Performed By: #### 5 7021-8 ####[facility] [id number] [place] [address] [place] Hemoglobin (Bld) [Mass/Vol] 11.3 g/dL Low 11.5-15.5 [facility] Comment on above: Order Comment: Speci men Type: BLOOD SPECIMENOrdering Facility: [facility] Address: [address] [place] [address] Performed By: #### 5 7021-8 ####[facility] [id number] [place] [address] [place] Immature granulocytes (Bld) [#/Vol] 0.04 10*3/uL Normal <0.10 [facility] Comment on above: Order Comment: Speci men Type: BLOOD SPECIMENOrdering Facility: [facility] Address: [address] [place] [address] Performed By: #### 5 7021-8 ####[facility] [id number] [place] [address] [place] Immature granulocytes/100 WBC (Bld) 0.5 % Normal [facility] Comment on above: Order Comment: Speci men Type: BLOOD SPECIMENOrdering Facility: [facility] Address: [address] [place] [address] Performed By: #### 5 7021-8 ####[facility] [id number] [place] [address] [place] Lymphocytes (Bld) [#/Vol] 1.73 10*3/uL Normal 1.00-4.00 [facility] Comment on above: Order Comment: Speci men Type: BLOOD SPECIMENOrdering Facility: [facility] Address: [address] [place] [address] Performed By: #### 5 7021-8 ####[facility] [id number] [place] [address] [place] Lymphocytes/100 WBC (Bld) 20.1 % Normal [facility] Comment on above: Order Comment: Speci men Type: BLOOD SPECIMENOrdering Facility: [facility] Address: [address] [place] [address] Performed By: #### 5 7021-8 ####[facility] [id number] [place] [address] [place] MCH (RBC) [Entitic mass] 29.6 pg Normal 26.0-34.0 [facility] Comment on above: Order Comment: Speci men Type: BLOOD SPECIMENOrdering Facility: [facility] Address: [address] [place] [address] Performed By: #### 5 7021-8 ####[facility] [id number] [place] [address] [place] MCHC (RBC) [Mass/Vol] 34.7 g/dL Normal 30.5-36.0 [facility] Comment on above: Order Comment: Speci men Type: BLOOD SPECIMENOrdering Facility: [facility] Address: [address] [place] [address] Performed By: #### 5 7021-8 ####[facility] [id number] [place] [address] [place] MCV (RBC) [Entitic vol] 85.3 fL Normal 80.0-100.0 [facility] Comment on above: Order Comment: Speci men Type: BLOOD SPECIMENOrdering Facility: [facility] Address: [address] [place] [address] Performed By: #### 5 7021-8 ####[facility] [id number] [place] [address] [place] Monocytes (Bld) [#/Vol] 0.41 10*3/uL Normal <0.87 [facility] Comment on above: Order Comment: Speci men Type: BLOOD SPECIMENOrdering Facility: [facility] Address: [address] [place] [address] Performed By: #### 5 7021-8 ####[facility] MILLTOWNCLIA [id number] [place] [address] [place] Monocytes/100 WBC (Bld) 4.8 % Normal [facility] Comment on above: Order Comment: Speci men Type: BLOOD SPECIMENOrdering Facility: [facility] Address: [address] [place] [address] Performed By: #### 5 7021-8 ####[facility]ITALNCLIA [id number] [place] [address] [place] Neutrophils (Bld) [#/Vol] 6.31 10*3/uL Normal 1.45-7.50 [facility] Comment on above: Order Comment: Speci men Type: BLOOD SPECIMENOrdering Facility: [facility] Address: [address] [place] [address] Performed By: #### 5 7021-8 ####[facility] ERWNCLIA [id number] [place] [address] [place] Neutrophils/100 WBC (Bld) 73.2 % Normal [facility] Comment on above: Order Comment: Speci men Type: BLOOD SPECIMENOrdering Facility: [facility] Address: [address] [place] [address] Performed By: #### 5 7021-8 ####[facility] MILLWNCLIA [id number] [place] [address] [place] Nucleated RBC (Bld) [#/Vol] 10*3/uL Normal <0.01 [facility] Comment on above: Order Comment: Speci men Type: BLOOD SPECIMENOrdering Facility: [facility] Address: [address] [place] [address] Performed By: #### 5 7021-8 ####[facility] MILLWNCLIA [id number] [place] [address] [place] Nucleated RBC/100 WBC (Bld) [Ratio] 0.0 /100 WBC Normal [facility] Comment on above: Order Comment: Speci men Type: BLOOD SPECIMENOrdering Facility: [facility] Address: [address] [place] [address] Performed By: #### 5 7021-8 ####[facility] HOSPITALNARDALisa [id number] [place] [address] [place] Platelet mean volume (Bld) [Entitic vol] 9.4 fL Normal 9.0-12.7 [facility] Comment on above: Order Comment: Speci men Type: BLOOD SPECIMENOrdering Facility: [facility] Address: [address] [place] [address] Performed By: #### 5 7021-8 ####[facility] [id number] [place] [address] [place] Platelets (Bld) [#/Vol] 296 10*3/uL Normal 150-400 [facility] Comment on above: Order Comment: Speci men Type: BLOOD SPECIMENOrdering Facility: [facility] Address: [address] [place] [address] Performed By: #### 5 7021-8 ####[facility] ALONCATHEDRAL CITYNARDALILYA [id number] [place] [address] [place] RBC (Bld) [#/Vol] 3.82 10*6/uL Low 3.90-5.20 [facility] Comment on above: Order Comment: Speci men Type: BLOOD SPECIMENOrdering Facility: [facility] Address: [address] [place] [address] Performed By: #### 5 7021-8 ####[facility]OS[facility]ITALNCLI [id number] [place] [address] [place] WBC (Bld) [#/Vol] 8.61 10*3/uL Normal 3.70-11.00 [facility] Comment on above: Order Comment: Speci men Type: BLOOD SPECIMENOrdering Facility: [facility] Address: [address] [place] [address] Performed By: #### 5 7021-8 ####[facility] [id number] [place] [address] [place] GESTATIONAL GLUCOSE SCREEN, 1-HOUR, 50 GRAM, NON-FASTINGon 01-25-2025 Glucose [Mass/Vol] 100 mg/dL Normal 74-134 [facility] Comment on above: Order Comment: Tom avendaño Type: BLOOD SPECIMENOrdering Facility: [facility] Address: [address] [place] [address] Result Comment: [facility] Congress of Obstetricians and Gynecologists (David/Tiffany) guidelines state a gestational diabetes mellitus positive screen is made, in women not previously diagnosed with overt diabetes, when the 1 hr plasma glucose level is equal to or above 140 mg/dL. The [facility] Store Team Member and [facility] recommends a 135 mg/dL cutoff. Performed By: #### G LTGST ####[facility] [id number] [place] [address] [place] Reagin and Treponema pallidu m IgG and IgM [Interp]on 01-25-2025 T. pallidum IgG+IgM IA Ql (S) Non-Reactive Normal Nonreactive [facility] Comment on above: Order Comment: Speci men Type: BLOOD SPECIMENOrdering Facility: [facility] Address: [address] [place] [address] Performed By: #### 7 3752-8 ####[facility] LABCLIA [id number] [place] [address] [place] Reagin+T pallidum IgG+IgM Se rPl-Impon 01-25-2025 Reagin and Treponema pallidum IgG and IgM [Interp] Cannot exclude recent Treponemal infection if specimen collected within 7-10 days after appearance of suspect lesions or 2-3 weeks after an exposure. Clinical correlation is required. Normal [facility] Comment on above: Order Comment: Speci men Type: BLOOD SPECIMENOrdering Facility: [facility] Address: [address] [place] [address] Performed By: #### 7 3752-8 ####[facility] LABCLIA [id number] [facility] [place]NOTE 2]DESK [id number] [place] [address] CNPNon 01-13-2025 CNPN Telephone (OGFVWE) DAMON GARZA ([id number]) 5 F Date Time Provider Department 01/13/25 NURSE SCADA TECHNICIAN FRVW [place] OGFVWE During your visit today, we recorded [...] 1 tablet by mouth once daily. - Wzdoency-Fr-Vke-Fe-FA tab Take 1 tablet by mouth once daily. Problem List As Of Date 01/13/2025 Noted Resolved Encounter for supervision of high risk pregnanc*12/06/2024 Late care [O09.30] 12/06/2024 Rubella non-immune status, antepartum [O09.899,*12/08/2024 Muscular ventricular septal defect [Q21.0] 12/15/2024 Encounter Status:Closed by DANNA OLIVERA on 01/13/25 Normal [facility] Examination level ultrasound on 12-14-2024 Indication Standard [...] If VSD is confirmed, will refer to [facility] for coordination of care Maternal Assessment Height [...] 0 oz EFW by: Hadlock (HC-AC-FL) Extended Supervisor Border Department 6.9 mm CM 4.3 mm 14% Nicolaides [...] normal LVOT view: normal 3-vessel view: normal 9-qmzrvz-lslesaj view: normal Heart / Thorax 4-chamber view: [...] By: Alberto Finch M.D., Ph.D. MATERNAL MEDICINE [facility] Radiology Study observation (narrative) [facility] Urine Cultureon 12-14-2024 URC #1, 2 Below infectio n level. Urine Culture Mixed Gram Positive Organisms [place] Count 1000-10,000 MIXC Mixed contaminants. Submit a new specimen if indicated. STAGA [place] Count <1000 Normal [facility] Comment on above: Performed By: #### M 100.2200 #### [facility] [address] [address] [place], [address] Emergency Department Summary on 12-11-2024 Emergency Department Summary [facility] Medical Records Department [address] [place] [address] Emergency Department Summary 12/11/24 MR#: [id number] Acct: [id number] Name: DAMON GARZA Rep #: [id number] : 2005 19 From: Nurys Allan DO [...] Clarity Cloudy Urine pH 8.0 Ur Specific [place] 1.010 Urine Protein 15 H Urine Glucose (UA) Normal Urine Ketones 15 H Urine Occult Blood Negative Urine Nitrite Negative Urine Bilirubin Negative Urine Urobilinogen Normal Ur Leukocyte Esterase 500 H Urine RBC 0-5 SEEN Urine WBC 10-25 SEEN Ur Squamous Epith Cells 0-5 SEEN Urine Bacteria 2+ Urine Mucus RARE Treatment and Re-Evaluation :: Differential diagnosis (more content not included)... Normal [facility] Urinalysis, Completeon 12-11 BACTERIA 2+ /hpf Normal None Seen [facility] Comment on above: Order Comment: DELMI CTOR TO SPECIFY Performed By: #### L 400.0001 #### [facility] [address] [place], [place], [id number] EPI,SQUAMOUS 0-5 SEEN Normal 5-10 [facility] Comment on above: Order Comment: DELMI CTOR TO SPECIFY Performed By: #### L 400.0001 #### [facility] [address] [place], [place], [id number] Mucus Ql (Urine sed) RARE Normal [facility] Comment on above: Order Comment: DELMI CTOR TO SPECIFY Performed By: #### L 400.0001 #### [facility] [address] [place], [address] RBC 0-5 SEEN Normal 0-5 [facility] Comment on above: Order Comment: DELMI CTOR TO SPECIFY Performed By: #### L 400.0001 #### [facility] [address] [place], [place], [address] WBC 10-25 SEEN Normal 0-5 [facility] Comment on above: Order Comment: DELMI CTOR TO SPECIFY Performed By: #### L 400.0001 #### [facility] [address] [place], [place], [address] CNPNon 12-07-2024 [facility][id number][facility] DAM[facility] ([id number]) 5 F Date Time Provider Department 12/07/24 NATALYA MENDOZA [id number] During your visit today, we recorded the following information about you: Natalya Mendoza RN 12/07/2024 1:47 PM Signed 1st risk assessment form submitted 12/07/2024. 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 - Djgflzpg-Ek-Kcz-Fe-FA tab Take 1 tablet by mouth once daily. Problem List As Of Date 12/07/2024 Noted Resolved Encounter for supervision of high risk pregnanc*12/06/2024 Late care [O09.30] 12/06/2024 Encounter Status:Closed by NATALYA MENDOZA on 12/07/24 [facility] B[facility] Ur Culton Bacteria identified Cx Nom (U) ORGANISM ID: 1 10,000 -<50,000 CFU/ml Normal urogenital danielle Normal [facility] Comment on above: Performed By: #### 6 30-4 ####[facility] LABCLIA [id number] [place] [address] [place] C. trachomatis+N. gonorrhoea e DNA KATELIN+probe Ql (Unsp spec)on 12-06-2024 C. trachomatis rRNA KATELIN+probe Ql (Unsp spec) Not detected Normal Not detected [facility] Comment on above: Order Comment: Speci men Type: SWABOrdering Facility: [facility] Address: [address] [place] [address] Performed By: #### 3 6902-5 ####[facility]ITAL[facility] [id number] [place] [address] [place] N. gonorrhoeae rRNA KATELIN+probe Ql (Unsp spec) Not detected Normal Not detected [facility] Comment on above: Order Comment: Speci men Type: SWABOrdering Facility: [facility] Address: [address] [place] [address] Performed By: #### 3 6902-5 ####[facility] [id number] [place] [address] [place] CBC W Auto Differential pane l (Bld)on 12-06-2024 Basophils (Bld) [#/Vol] 0.03 10*3/uL Normal <0.11 [facility] Comment on above: Order Comment: Speci men Type: BLOOD SPECIMENOrdering Facility: [facility] Address: [address] [place] [address] Performed By: #### 5 7021-8 ####[facility] ANGIEACMC HEALTHCARE SYSTEMLisa [id number] [place] [id number] [place] Basophils/100 WBC (Bld) 0.4 % Normal [facility] Comment on above: Order Comment: Speci men Type: BLOOD SPECIMENOrdering Facility: [facility] Address: [address] [place] [address] Performed By: #### 5 7021-8 ####[facility] ALONSHAYLIA [id number] [place] [address] [place] Differential cell count method Nom (Bld) Auto Normal [facility] Comment on above: Order Comment: Speci men Type: BLOOD SPECIMENOrdering Facility: [facility] Address: [address] [place] [address] Performed By: #### 5 7021-8 ####[facility]PITALNCLIA [id number] [place] [address] [place] Eosinophils (Bld) [#/Vol] 0.07 10*3/uL Normal <0.46 [facility] Comment on above: Order Comment: Speci men Type: BLOOD SPECIMENOrdering Facility: [facility] Address: [address] [place] [address] Performed By: #### 5 7021-8 ####[facility] YOUNGSTOWNLIA [id number] [place] [address] [place] Eosinophils/100 WBC (Bld) 0.9 % Normal [facility] Comment on above: Order Comment: Speci men Type: BLOOD SPECIMENOrdering Facility: [facility] Address: [address] [place] [address] Performed By: #### 5 7021-8 ####[facility] YOUNGSTOWNLIA [id number] [place] [address] [place] Erythrocyte distribution width (RBC) [Ratio] 12.4 % Normal 11.5-15.0 [facility] Comment on above: Order Comment: Speci men Type: BLOOD SPECIMENOrdering Facility: [facility] Address: [address] [place] [address] Performed By: #### 5 7021-8 ####[facility] HOSPITALNCLIA [id number] [place] [address] [place] Hematocrit (Bld) [Volume fraction] 36.3 % Normal 36.0-46.0 [facility] Comment on above: Order Comment: Speci men Type: BLOOD SPECIMENOrdering Facility: [facility] Address: [address] [place] [address] Performed By: #### 5 7021-8 ####[facility]ENTERLisa [id number] [place] [address] [place] Hemoglobin (Bld) [Mass/Vol] 12.6 g/dL Normal 11.5-15.5 [facility] Comment on above: Order Comment: Speci men Type: BLOOD SPECIMENOrdering Facility: [facility] Address: [address] [place] [address] Performed By: #### 5 7021-8 ####[facility] YOUNGSTOWNJC [id number] [place] [address] [place] Immature granulocytes (Bld) [#/Vol] 0.04 10*3/uL Normal <0.10 [facility] Comment on above: Order Comment: Speci men Type: BLOOD SPECIMENOrdering Facility: [facility] Address: [address] [place] [address] Performed By: #### 5 7021-8 ####[facility] YOUNGSTOWNLILisa [id number] [place] [address] [place] Immature granulocytes/100 WBC (Bld) 0.5 % Normal [facility] Comment on above: Order Comment: Speci men Type: BLOOD SPECIMENOrdering Facility: [facility] Address: [address] [place] [address] Performed By: #### 5 7021-8 ####[facility]OS[facility]ITALNCLIA [id number] [place] [address] [place] Lymphocytes (Bld) [#/Vol] 1.55 10*3/uL Normal 1.00-4.00 [facility] Comment on above: Order Comment: Speci men Type: BLOOD SPECIMENOrdering Facility: [facility] Address: [address] [place] [address] Performed By: #### 5 7021-8 ####[facility] [id number] [address] STATES [facility] Lymphocytes/100 WBC (Bld) 19.0 % Normal [facility] Comment on above: Order Comment: Speci men Type: BLOOD SPECIMENOrdering Facility: [facility] Address: [address] [place] [address] Performed By: #### 5 7021-8 ####[facility]OS[facility]ITALNCGUNNISON VAL[facility] [id number] [place] [address] [place] MCH (RBC) [Entitic mass] 30.0 pg Normal 26.0-34.0 [facility] Comment on above: Order Comment: Speci men Type: BLOOD SPECIMENOrdering Facility: [facility] Address: [address] [place] [address] Performed By: #### 5 7021-8 ####[facility] [id number] [address] [place] MCHC (RBC) [Mass/Vol] 34.7 g/dL Normal 30.5-36.0 [facility] Comment on above: Order Comment: Speci men Type: BLOOD SPECIMENOrdering Facility: [facility] Address: [address] [place] [address] Performed By: #### 5 7021-8 ####[facility] [id number] [address] [place] MCV (RBC) [Entitic vol] 86.4 fL Normal 80.0-100.0 [facility] Comment on above: Order Comment: Speci men Type: BLOOD SPECIMENOrdering Facility: [facility] Address: [address] [place] [address] Performed By: #### 5 7021-8 ####[facility] MILLTOWNCLIA [id number] [place] [address] [place] Monocytes (Bld) [#/Vol] 0.33 10*3/uL Normal <0.87 [facility] Comment on above: Order Comment: Speci men Type: BLOOD SPECIMENOrdering Facility: [facility] Address: [address] [place] [address] Performed By: #### 5 7021-8 ####[facility] MILLTOWNCLIA [id number] [place] [address] [place] Monocytes/100 WBC (Bld) 4.0 % Normal [facility] Comment on above: Order Comment: Speci men Type: BLOOD SPECIMENOrdering Facility: [facility] Address: [address] [place] [address] Performed By: #### 5 7021-8 ####[facility] ERWNCLIA [id number] [place] [address] [place] Neutrophils (Bld) [#/Vol] 6.13 10*3/uL Normal 1.45-7.50 [facility] Comment on above: Order Comment: Speci men Type: BLOOD SPECIMENOrdering Facility: [facility] Address: [address] [place] [address] Performed By: #### 5 7021-8 ####[facility] MILLTOWNCLIA [id number] [place] [address] [place] Neutrophils/100 WBC (Bld) 75.2 % Normal [facility] Comment on above: Order Comment: Speci men Type: BLOOD SPECIMENOrdering Facility: [facility] Address: [address] [place] [address] Performed By: #### 5 7021-8 ####[facility] MILLTOWNCLIA [id number] [place] [address] [place] Nucleated RBC (Bld) [#/Vol] 10*3/uL Normal <0.01 [facility] Comment on above: Order Comment: Speci men Type: BLOOD SPECIMENOrdering Facility: [facility] Address: [address] [place] [address] Performed By: #### 5 7021-8 ####[facility] HOSPITALIGNACIO [id number] [place] [address] [place] Nucleated RBC/100 WBC (Bld) [Ratio] 0.0 /100 WBC Normal [facility] Comment on above: Order Comment: Speci men Type: BLOOD SPECIMENOrdering Facility: [facility] Address: [address] [place] [address] Performed By: #### 5 7021-8 ####[facility] HOSPITALIGNACIO [id number] [place] [address] [place] Platelet mean volume (Bld) [Entitic vol] 9.2 fL Normal 9.0-12.7 [facility] Comment on above: Order Comment: Speci men Type: BLOOD SPECIMENOrdering Facility: [facility] Address: [address] [place] [address] Performed By: #### 5 7021-8 ####[facility] HOSPITALIGNACIO [id number] [place] [address] [place] Platelets (Bld) [#/Vol] 318 10*3/uL Normal 150-400 [facility] Comment on above: Order Comment: Speci men Type: BLOOD SPECIMENOrdering Facility: [facility] Address: [address] [place] [address] Performed By: #### 5 7021-8 ####[facility] HOSPITALNARDALIA [id number] [place] [address] [place] RBC (Bld) [#/Vol] 4.20 10*6/uL Normal 3.90-5.20 [facility] Comment on above: Order Comment: Speci men Type: BLOOD SPECIMENOrdering Facility: [facility] Address: [address] [place] [address] Performed By: #### 5 7021-8 ####[facility] [id number] [place] [address] [place] WBC (Bld) [#/Vol] 8.15 10*3/uL Normal 3.70-11.00 [facility] Comment on above: Order Comment: Speci men Type: BLOOD SPECIMENOrdering Facility: [facility] Address: [address] [place] [address] Performed By: #### 5 7021-8 ####[facility] [id number] [place] [address] [place] HBV surface Ag Ser Qlon 11-14 HBV surface Ag Ql (S) Negative Normal Negative [facility] Comment on above: Order Comment: Speci men Type: BLOOD SPECIMENOrdering Facility: [facility] Address: [address] [place] [address] Performed By: #### 7 3752-8, 07149-4, 5195-3 ####[facility] LABCLIA [id number] [place] [address] [place] HCV Ab Ser Qlon 12-06-2024 HCV Ab Ql (S) Negative Normal Negative [facility] Comment on above: Order Comment: Speci men Type: BLOOD SPECIMENOrdering Facility: [facility] Address: [address] [place] [address] Result Comment: The result suggests no evidence of active infection with Hepatitis C virus. Should recent infection be suspected, repeat testing may be considered 4-6 weeks after this draw. Performed By: #### 1 6128-1 ####[facility] LABCLIA [id number] [place] [address] [place] HIV 1+2 Ab IA Qlon 5 HIV 1 and 2 Ab IA.rapid Nom (S/P/Bld) Normal [facility] Comment on above: Order Comment: Speci men Type: BLOOD SPECIMENOrdering Facility: [facility] Address: [address] [place] [address] Result Comment: Test not indicated. Performed By: #### 7 3752-8, 61412-1, 5195-3 ####[facility] LABCLIA [id number] [address] OF [place] HIV 1+2 Ab+HIV1 p24 Ag IA Ql Non-Reactive Normal Nonreactive [facility] Comment on above: Order Comment: Speci men Type: BLOOD SPECIMENOrdering Facility: [facility] Address: [address] [place] [address] Performed By: #### 7 3752-8, 04566-6, 5194-12 ####[facility] LABIA [id number] [address] OF [place] HIV immunoassay testing algorithm interpretation (S/P/Bld) [Interp] Normal [facility] Comment on above: Order Comment: Speci men Type: BLOOD SPECIMENOrdering Facility: [facility] Address: [address] [place] [address] Result Comment: No e vidence of HIV-1 or HIV-2 infection. Should recent infection be suspected, repeat testing may be considered 2-3 weeks after this draw. [place] Rev. Code 3701.243(E): This information has been [...] or diagnoses. Performed By: #### 7 3752-8, 56131-8, 5195-3 ####[facility] LABCLIA [id number] [address] [place] HbA1c (Bld)on 12-06-2024 Average glucose Estimated from glycated hemoglobin (Bld) [Mass/Vol] 77 mg/dL Normal [facility] Comment on above: Order Comment: Tom avendaño Type: BLOOD SPECIMENOrdering Facility: [facility] Address: [address] [place] [address] Result Comment: eAG: (Estimated average glucose) is a calculated value from HgbA1c and is motor vehicle field representative of the average blood glucose level in the last 2-3 month period. Performed By: #### 5 5454-3 ####[facility] LABCLIA [id number] [address] [place] HbA1c (Bld) [Mass fraction] 4.3 % Normal 4.3-5.6 [facility] Comment on above: Order Comment: Tom avendaño Type: BLOOD SPECIMENOrdering Facility: [facility] Address: [address] [place] [address] Result Comment: Amer [place] Diabetes Association guidelines indicate that patients with HgbA1c in the range 5.7-6.4% are at increased risk for development of diabetes, and intervention by lifestyle modification may be beneficial. HgbA1c greater or equal to 6.5% is considered diagnostic of diabetes. Performed By: #### 5 5454-3 ####[facility] LABCLIA [id number] [place] [address] [place] [id number] PLUSon 12-06-2024 Cell-free DNA./Cell-free DNA.total Dosage of chromosome-specific cfDNA (cfDNA) [Molar fraction] 26% Normal [facility] Comment on above: Order Comment: Sabasi jarocho Type: BLOOD SPECIMENOrdering Facility: [facility] Address: [address] [place] [address] Performed By: #### M AT21 ####[facility] LABCLIA [id number] [place] [address] Chr 13+18+21+X+Y aneuploidy Dosage of chromosome-specific cfDNA Ql (cfDNA) Negative Normal [facility] Comment on above: Order Comment: Speci men Type: BLOOD SPECIMENOrdering Facility: [facility] Address: [address] [place] [address] Performed By: #### M AT21 ####[facility] LABCLIA [id number] [place] [address] Chr 21 trisomy Dosage of chromosome-specific cfDNA Ql (cfDNA) Negative Normal [facility] Comment on above: Order Comment: Speci men Type: BLOOD SPECIMENOrdering Facility: [facility] Address: [address] [place] [address] Performed By: #### M AT21 ####[facility] LABCLIA [id number] [place] [address] Chr X and Y aneuploidy risk Sequencing Ql (cfDNA) [Interp] Not detected Normal [facility] Comment on above: Order Comment: Speci men Type: BLOOD SPECIMENOrdering Facility: [facility] Address: [address] [place] [address] Result Comment: Not Detected Not Detected Performed By: #### M AT21 ####[facility] LABCLIA [id number] [place] [address] Citation Alen (Reference lab test) Comment Normal [facility] Comment on above: Order Comment: Speci men Type: BLOOD SPECIMENOrdering Facility: [facility] Address: [address] [place] [address] Result Comment: 1. P sloan RALPH, et al. Rosy Med. 2012;14(3):296-305. 2. Niraj OVALLES et al. Prenat Diag. 2013;33(6):591-597. 3. Rony C, et al. Clin Chem. 2015 Apr;61(4):608-616. 4. Leticia RALPH et al. Rosy Med. 2011;13(11):913-920. 5. ACOG/SMFM Practice Bulletin No. 226, Jul 2020. Performed By: #### M AT21 ####[facility] LABCLIA [id number] [place] [address] Gestational age Estimated from conception date Drummond Normal [facility] Comment on above: Order Comment: Speci men Type: BLOOD SPECIMENOrdering Facility: [facility] Address: [address] [place] [address] Performed By: #### M AT21 ####[facility] LABCLIA [id number] [place] [address] GESTATIONALAGE AGE > OR = 9W Yes Normal [facility] Comment on above: Order Comment: Speci men Type: BLOOD SPECIMENOrdering Facility: [facility] Address: [address] [place] [address] Performed By: #### M AT21 ####[facility] LABCLIA [id number] [place] [address] Laboratory comment Alen (Report) Comment Normal [facility] Comment on above: Order Comment: Speci men Type: BLOOD SPECIMENOrdering Facility: [facility] Address: [address] [place] [address] Result Comment: The MaterniT(R) 21 PLUS laboratory-developed test (LDT) analyzes circulating cell-free DNA from a maternal blood sample. This test is used for screening purposes and not diagnostic. Clinical correlation is recommended. Validation data on twin pregnancies is limited and the ability of this test to detect aneuploidy in higher multiple gestations has not yet been validated. Performed By: #### M AT21 ####[facility] LABCLIA [id number] [place] [address] director of conservation name Nom (Provider) Comment Normal [facility] Comment on above: Order Comment: Speci men Type: BLOOD SPECIMENOrdering Facility: [facility] Address: [address] [place] [address] Result Comment: This specimen showed an expected representation of chromosome 21, 18 and 13 material. Clinical correlation is suggested. Comment Vinh Lopez MD, PhD, Director, [employer] Performed By: #### M AT21 ####[facility] LABCLIA [id number] [place] [address] LIMITATIONS OF THE TEST Comment Normal [facility] Comment on above: Order Comment: Speci men Type: BLOOD SPECIMENOrdering Facility: [facility] Address: [address], [place] [address] Result Comment: Yony ashley the results of [...] and Fragmin(R)). Performed By: #### M AT21 ####[facility] LABCLIA [id number] [place] [address] Monosomy X risk Dosage of chromosome-specific cfDNA Ql (Plasma cell-free+WBC DNA) [Interp] Not detected Normal [facility] Comment on above: Order Comment: Speci men Type: BLOOD SPECIMENOrdering Facility: [facility] Address: [address] [place] [address] Performed By: #### M AT21 ####[facility] LABCLIA [id number] [place] [address] NEGATIVE PREDICTIVE VALUE Note Normal [facility] Comment on above: Order Comment: Tom men Type: BLOOD SPECIMENOrdering Facility: [facility] Address: [address] [place] [address] Result Comment: The Negative Predictive Value (NPV) for trisomy 21, 18, and 13 is greater than 99%. The NPV for SCA and ESS cannot be calculated as SCA and ESS are only reported when an abnormality is detected. Performed By: #### M AT21 ####[facility] LABCLIA [id number] [place] [address] PERFORMANCE CHARACTERISTICS Note Normal [facility] Comment on above: Order Comment: Tom jarocho Type: BLOOD SPECIMENOrdering Facility: [facility] Address: [address] [place] [address] Result Comment: ! Sex ! Accuracy: 99.4% [...] gestation only. Performed By: #### M AT21 ####[facility] [facility] [id number] [place] [id number] POSITIVE PREDICTIVE VALUE N/A Normal [facility] Comment on above: Order Comment: Speci men Type: BLOOD SPECIMENOrdering Facility: [facility] Address: [address] [place] [address] Performed By: #### M AT21 ####[facility] LABCLIA [id number] [place] [id number] Reference Lab Test Method Comment Normal [facility] Comment on above: Order Comment: Speci men Type: BLOOD SPECIMENOrdering Facility: [facility] Address: [address] [place] [address] Result Comment: See Notes Circulating cell-free DNA [...] and 22. Performed By: #### M AT21 ####[facility] LABCLIA [id number] [place] [id number] Service comment (Unsp spec) [Interp] Comment Normal [facility] Comment on above: Order Comment: Speci men Type: BLOOD SPECIMENOrdering Facility: [facility] Address: [address] [place] [address] Result Comment: See Notes [employer] is a subsidiary of [employer], using the brand [employer]. This test was developed and its performance characteristics determined by [employer]. It has not been cleared or approved by the Food and Drug Administration. This laboratory is certified under the Clinical Laboratory Improvement Amendments (CLIA) as qualified to perform high complexity clinical laboratory testing and accredited by the [employer] [employer] (CAP). If there is future clinical need for adding MaterniT GENOME testing, this specimen will be available until term. [facility] samples will not be retained beyond 60 days. [facility] patients will have to send a new sample for re-sequencing ([facility] Test Code: [id number]). Performed By: #### M AT21 ####[facility] LABCLIA [id number] [place] [address] Sex Dosage of chromosome-specific cfDNA Nom (cfDNA) Comment Normal [facility] Comment on above: Order Comment: Speci men Type: BLOOD SPECIMENOrdering Facility: [facility] Address: [address] [place] [address] Result Comment: Cons istent with Female Performed By: #### M AT21 ####[facility] LABCLIA [id number] [place] [address] Test performance information Alen (Unsp spec) Comment Normal [facility] Comment on above: Order Comment: Speci men Type: BLOOD SPECIMENOrdering Facility: [facility] Address: [address] [place] [address] Result Comment: The performance characteristics of the MaterniT(R) 21 PLUS laboratory-developed test (LDT) have been determined in a clinical validation study with women at increased risk for chromosomal aneuploidy.[1-4] Performed By: #### M AT21 ####[facility] LABCLIA [id number] [place] [address] Trisomy 13 risk Dosage of chromosome-specific cfDNA Ql (cfDNA) [Interp] Negative Normal [facility] Comment on above: Order Comment: Speci men Type: BLOOD SPECIMENOrdering Facility: [facility] Address: [address] [place] [address] Performed By: #### M AT21 ####[facility] LABCLIA [id number] [place] [address] Trisomy 18 risk Dosage of chromosome-specific cfDNA Ql (Plasma cell-free+WBC DNA) [Interp] Negative Normal [facility] Comment on above: Order Comment: Speci men Type: BLOOD SPECIMENOrdering Facility: [facility] Address: [address] [place] [address] Performed By: #### M AT21 ####[facility] LABCLIA [id number] [place] [address] RUBELLA IGG ANTIBODYon 12-06 RUBELLA IGG AB, QUAL Negative Abnormal Positive [facility] Comment on above: Order Comment: Speci men Type: BLOOD SPECIMENOrdering Facility: [facility] Address: [address] [place] [address] Result Comment: The result suggests no history of Rubella vaccination or exposure to Rubella virus, however, some individuals with past history of Rubella vaccination may test negative using this test as immunity to Rubella virus wanes over time after vaccination. Please correlate with vaccination history if applicable. Performed By: #### R UBIGG ####[facility] LABCLIA [id number] [place] [address] [place] Reagin and Treponema pallidu m IgG and IgM [Interp]on 12-06-2024 T. pallidum IgG+IgM IA Ql (S) Non-Reactive Normal Nonreactive [facility] Comment on above: Order Comment: Speci jarocho Type: BLOOD SPECIMENOrdering Facility: [facility] Address: [address] [place] [address] Performed By: #### 7 3752-8, 70703-2, 5194-3 ####[facility] LABCLIA [id number] [place] [address] [place] Reagin+T pallidum IgG+IgM Se rPl-Impon 12-06-2024 Reagin and Treponema pallidum IgG and IgM [Interp] Cannot exclude recent Treponemal infection if specimen collected within 7-10 days after appearance of suspect lesions or 2-3 weeks after an exposure. Clinical correlation is required. Normal [facility] Comment on above: Order Comment: [facility] Type: BLOOD SPECIMENOrdering Facility: [facility] Address: [address] [place] [address] Performed By: #### 7 3752-8, 31798-5, 5195-3 ####[facility] LABCLIA [id number] [place] [address] [place] TYPE + SCREEN PRENATALon ABO O Normal [facility] Comment on above: Order Comment: Speci men Type: BLOOD SPECIMENOrdering Facility: [facility] Address: [address] [place] [address] Performed By: #### T SPN ####CC MAIN BLOOD BANKCLIA [id number] [place] [address] [place] Rh Nom (Bld) Positive Normal [facility] Comment on above: Order Comment: Speci men Type: BLOOD SPECIMENOrdering Facility: [facility] Address: [address] [place] [address] Performed By: #### T SPN ####CC MAIN BLOOD BANKCLIA [id number] [place] [address] [place] TYPE AND SCREEN EXPIRATION 12/09/2024 23:59 Normal [facility] Comment on above: Order Comment: Speci men Type: BLOOD SPECIMENOrdering Facility: [facility] Address: [address] [place] [address] Performed By: #### T SPN ####CC MAIN BLOOD BANKCLIA [id number] [place] [address] [place] Emergency Department Summary on 06-18-2024 Emergency Department Summary [facility] Medical Records Department [address] [place] [id number] Emergency Department Summary 06/18/24 MR#: [id number] Acct: [id number] Name: DAMON GARZA Rep #: [id number] : 2005 18 From: Nurys Allan DO [...] eye. 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 I recommend using lubricating eyedrops such as Systane brand. Do not put contacts back in your eyes and wear glasses intake and either follow-up with your barrel dedenting machine operator or that the mall just through [facility] (you been given the contact information). Print Language: East Timorese Disposition Disposition: Home, Self Care What to do if you have Problems For any increased pain, shortness of breath, bleeding, nausea or vomiting, chest pain, or any unexpected problems, contact your Primary Care Provider. Call [facility] ([phone]) or report to the closest Emergency Room. Call 911 if necessary. 06/18/24 2334 Cosigner Signature (if applicable): (more content not included)... Normal [facility] Emergency Department Summary on 05-30-2024 Emergency Department Summary [facility] Medical Records Department [address] [place] [address] Emergency Department Summary 05/30/24 MR#: [id number] Acct: [id number] Name: BHAVANIDAMON Rep #: [id number] : 2005 18 From: Del JAMESC PCP: JOSÉ MIGUEL Ch Status:[facility] ER Location: ED Patient was seen and [...] following commands knew that she was at [facility] year is 2023. No saddle anesthesia noted [...] ideation, homici (more content not included)... Normal [facility] Progress Noteon 01-28-2023 Contract Administration Specialist Authentication Interface Message Text Patient ID: Damon [...] 61.2 kg, last menstrual period 01/13/2023. Normal [facility] Progress Noteon 08-07-2022 Contract Administration Specialist Authentication Interface Message Text Patient ID: Damon [...] 59.5 kg, last menstrual period 07/08/2022. Normal [facility] Vital Signs Date Time Vital Sign Value Performing Clinician Ferny de souza 04-08-2025 16:34-0400 Body mass index (BMI) [Ratio] 25.56 kg/m2 Kate Castanon APRN.CNM Work Phone: [facility] 04-08-2025 16:34-0400 Body weight 67.13 kg Kate Castanon APRN.CNM Work Phone: [facility] 04-08-2025 16:34-0400 Diastolic blood pressure 74 mm[Hg] Kate Castanon APRN.CNM Work Phone: [facility] 04-08-2025 16:34-0400 Systolic blood pressure 122 mm[Hg] Kate Castanon APRN.CNM Work Phone: [facility] 03-30-2025 09:49-0400 Body mass index (BMI) [Ratio] 25.39 kg/m2 Wanda Gardiner APRN.CNM Work Phone: [facility] 03-30-2025 09:49-0400 Body weight 66.68 kg Wanda Gardiner APRN.CNM Work Phone: [facility] 03-30-2025 09:49-0400 Diastolic blood pressure 70 mm[Hg] Wanda Gardiner APRN.CNKelton Work Phone: [facility] 03-30-2025 09:49-0400 Systolic blood pressure 110 mm[Hg] Wanda Gardiner APRN.CNM Work Phone: [facility] 03-22-2025 13:27-0400 Diastolic blood pressure 79 mm[Hg] i [facility] 03-22-2025 13:27-0400 Systolic blood pressure 120 mm[Hg] [facility] 03-21-2025 08:06-0400 Body mass index (BMI) [Ratio] 24.7 kg/m2 Mumtaz Hatyrone BEADING SAWYER.MARITIME ENGINEER Work Phone: [facility] 03-21-2025 08:06-0400 Body weight 64.86 kg Mumtaz Hatyrone BEADING SAWYER.MARITIME ENGINEER Work Phone: [facility] 03-21-2025 08:06-0400 Diastolic blood pressure 68 mm[Hg] Mumtaz Haury BEADING SAWYER.MARITIME ENGINEER Work Phone: [facility] 03-21-2025 08:06-0400 Systolic blood pressure 110 mm[Hg] Mumtaz Haury BEADING SAWYER.MARITIME ENGINEER Work Phone: [facility] 03-16-2025 13:21-0400 Body mass index (BMI) [Ratio] 25.11 kg/m2 Kate Plotts BEADING SAWYER.CNM Work Phone: [facility] 03-16-2025 13:21-0400 Body weight 65.95 kg Kate Plotts BEADING SAWYER.CNM Work Phone: [facility] 03-16-2025 13:21-0400 Diastolic blood pressure 60 mm[Hg] Kate Plotts BEADING SAWYER.CNM Work Phone: [facility] 03-16-2025 13:21-0400 Systolic blood pressure 98 mm[Hg] Kate Plotts BEADING SAWYER.CNM Work Phone: [facility] 01-25-2025 10:20-0400 Body mass index (BMI) [Ratio] 24.01 kg/m2 Wanda Gardiner BEADING SAWYER.CNM Work Phone: [facility] 01-25-2025 10:20-0400 Body weight 63.05 kg Wanda Gardiner BEADING SAWYER.CNM Work Phone: [facility] 01-25-2025 10:20-0400 Diastolic blood pressure 64 mm[Hg] Wanda Gardiner BEADING SAWYER.CNM Work Phone: [facility] 01-25-2025 10:20-0400 Systolic blood pressure 98 mm[Hg] Wanda Gardiner BEADING SAWYER.CNM Work Phone: [facility] 01-11-2025 09:57-0400 Body mass index (BMI) [Ratio] 23.63 kg/m2 Destini Langley MD Work Phone: [facility] 01-11-2025 09:57-0400 Body weight 62.05 kg Destini Langley MD Work Phone: [facility] 01-11-2025 09:57-0400 Diastolic blood pressure 70 mm[Hg] Destini Langley MD Work Phone: [facility] 01-11-2025 09:57-0400 Systolic blood pressure 110 mm[Hg] Destini Langley MD Work Phone: [facility] 12-06-2024 12:54-0500 Body height 162.1 cm Kate Plotts BEADING SAWYER.CNM Work Phone: [facility] 12-06-2024 12:54-0500 Body mass index (BMI) [Ratio] 21.76 kg/m2 Kate Plotts BEADING SAWYER.CNM Work Phone: [facility] 12-06-2024 12:54-0500 Body weight 57.15 kg Kate Plotts BEADING SAWYER.CNM Work Phone: [facility] 12-06-2024 12:54-0500 Diastolic blood pressure 60 mm[Hg] Kate Plotts BEADING SAWYER.CNM Work Phone: [facility] 12-06-2024 12:54-0500 Systolic blood pressure 108 mm[Hg] Kate Plotts BEADING SAWYER.CNM Work Phone: [facility] Encounters Encounter Date Encounter Type Care Provider Facility Start: 04-08-2025 End: 04-08-2025 Patient encounter procedure Kate Castanon BEADING SAWYER.CNM Work Phone: OB/Gynecology Comment on above: Supervision of high risk in third trimester (HCC) (Primary Dx); Uterine size-date discrepancy, third trimester (HCC); Group beta Strep positive; Muscular ventricular septal defect (HCC); 38 weeks gestation of (HCC) Start: 04-04-2025 End: 04-04-20[facility] [place] [facility] Start: 04-04-2025 End: 04-04-2025 [facility] [place] [facility] on above: Population Health Na vigation Outreach ( to PCP/OB/) Start: 03-30-2025 End: 03-30-2025 ambulatory WANDA GARDINER Facility:[facility] Start: 03-30-2025 End: 03-30-2025 Patient encounter procedure Wanda Gardiner APRN.CNM Work Phone: OB/Gynecology Comment on above: Supervision of high risk in third trimester (HCC) (Primary Dx); 37 weeks gestation of (HCC); Uterine size-date discrepancy, third trimester (HCC); Late care (HCC); Group beta Strep positive; Muscular ventricular septal defect (HCC) Start: 03-22-2025 End: 03-22-2025 Patient encounter procedure Whi Tech 2 Nanofabrication Specialist Mfm Wstr Mob Maternal Medicine Comment on above: Supervision of high risk in third trimester (HCC); 36 weeks gestation of (HCC); Muscular ventricular septal defect (HCC); Uterine size-date discrepancy, third trimester (HCC) Start: 03-22-2025 End: 03-22-2025 ambulatory MUMTAZ TYRONE Facility:[facility] Start: 03-21-2025 End: 03-21-2025 Patient encounter procedure Mumtaz Morales BEADING SAWYER.MARITIME ENGINEER Work Phone: OB/Gynecology Comment on above: Supervision of high risk in third trimester (HCC) (Primary Dx); 36 weeks gestation of (HCC); Muscular ventricular septal defect (HCC); Uterine size-date discrepancy, third trimester (HCC) Start: 03-21-2025 End: 03-21-2025 ambulatory MUMTAZ MORALES Facility:[facility] Start: 03-16-2025 End: 03-16-2025 Patient encounter procedure Kate Castanon RAINER.DANILO Work Phone: OB/Gynecology Comment on above: 35 weeks gestation o f (HCC) (Primary Dx); Supervision of high risk in third trimester (HCC); Encounter for supervision of high risk due to anomaly, second trimester (HCC); Muscular ventricular septal defect (HCC) Start: 03-16-2025 End: 03-16-2025 ambulatory KATE CASTANON Facility:[facility] Start: 03-08-2025 End: 03-08-2025 Telephone encounter Nurse Nanofabrication Specialist Narendra West Work Phone: Obstetrics/Gynecology Comment on above: PRAF Start: 03-02-2025 End: 03-02-2025 [facility] Start: 03-01-2025 End: 03-01-2025 [facility] GINGER ARLEEN Facility:[facility] Start: 01-27-2025 End: 03-29-2025 Follow-up encounter Destini [...] Start: 01-25-2025 End: 01-25-2025 ambulatory WANDA VALERIA Facility:[facility] Start: 01-13-2025 End: 01-13-2025 Telephone encounter Nurse Nanofabrication Specialist Narendra West Work Phone: Obstetrics/Gynecology Comment on above: PRAF Start: 01-11-2025 End: 01-11-2025 ambulatory DESTINI LANGLEY Facility:[facility] Start: 01-11-2025 End: 01-11-2025 Patient encounter procedure Destini Langley MD Work Phone: OB/Gynecology Comment on above: High risk teen pregn katelyn in second trimester (HCC) (Primary Dx); Screening for diabetes mellitus; Suspected anomaly, antepartum, single or unspecified fetus (HCC) Start: 12-14-2024 End: 12-14-2024 ambulatory KATE CASTANON Facility:[facility] Start: 12-14-2024 End: 12-14-2024 Patient encounter procedure Whi Tech 1 Nanofabrication Specialist Mfm On License Of [facility] Maternal [facility] Comment on above: Encounter for routin e screening for malformation using ultrasonics (Primary Dx); Ventricular septal defect (VSD) of fetus in drum[place] , antepartum; 22 weeks gestation of Start: 12-11-2024 End: 12-11-2024 Emergency department patient visit Nurys Marquesmassena Facility:[facility] Start: 12-07-2024 End: 12-07-2024 Telephone encounter Natalya Mendoza RN Maternal Medicine Comment on above: Financial Manager - O ther (PRAF) Start: 12-06-2024 End: 12-06-2024 ambulatory KATE CASTANON Facility:[facility] Start: 12-06-2024 End: 12-06-2024 Patient encounter procedure Kate Castanon BEADING SAWYER.CNM Work Phone: OB/Gynecology Comment on above: with uncer tain dates, antepartum (Primary Dx); 21 weeks gestation of ; Encounter for supervision of high risk due to anomaly, second trimester; High risk teen in second trimester; Late care Start: 06-18-2024 End: 06-18-2024 Emergency department patient visit Minda Haley [facility] Facility:[facility] Start: 05-30-2024 End: 05-30-2024 Emergency department patient visit Minda Haley [facility]ARE [facility] Facility:[facility] Start: 01-28-2023 End: 01-28-2023 ambulatory CAITLYN BRUNNER [facility] Start: 08-07-2022 End: 08-07-2022 ambulatory RADHA BARAJAS [facility] Procedures Date Procedure Procedure Detail Performing Clinician Start: 04-08-2025 Urnls dip stick/tabl et rgnt non-auto w/o micrscp Kate Castanon BEADING SAWYER.CNM Work Phone: Start: 03-30-2025 Urnls dip stick/tabl et rgnt non-auto w/o micrscp Sunshine Encarnacion MD Work Phone: Start: 03-22-2025 Us preg uterus after 1st trimest / gestation Mumtaz Morales BEADING SAWYER.MARITIME ENGINEER Work Phone: Start: 03-21-2025 Urnls dip stick/tabl et rgnt non-auto w/o micrscp Mumtaz Morales BEADING SAWYER.MARITIME ENGINEER Work Phone: Start: 03-16-2025 Urnls dip stick/tabl et rgnt non-auto w/o micrscp Kate Castanon BEADING SAWYER.CNM Work Phone: Start: 12-14-2024 Us preg uterus after 1st trimest / gestation Kate Castanon BEADING SAWYER.CNM Work Phone: Start: 12-06-2024 Antibody screen WANDA GARDINER Comment on above: Order Comment: Speci men Type: BLOOD SPECIMENOrdering Facility: [facility] Address: [address] [place] [address] Performed By: #### T SPN ####CC [facility] BLOOD BANKIA [id number] [address] [place] OF [place] Plan of Treatment Date Care Activity Detail Author Start: 01-25-2035 Urine microalbumin profile [facility] Start: 12-06-2025 GC (Gonorrhea) Scree manuel () GC (Gonorrhea) Screening () [facility] Start: 12-06-2025 Screening for Chlamy gabi trachomatis Chlamydia Screening () [facility] Start: 06-13-2025 Influenza vaccination Influenz a Vaccine (Season Ended) [facility] Start: 04-13-2025 End: 04-13-2025 Patient encounter procedure 04/13/2025 11:30 AM EDT Routine Office Visit OB/Gynecology [address] [place] [address] Wanda Gardiner APRN.CN [address] [place] [address] OB OB/Gynecology Comment on above: OB Start: 04-08-2025 End: 04-08-2025 Patient encounter procedure 04/08/2025 4:30 PM EDT Routine Office Visit OB/Gynecology [address] [place] [address] Kate Castanon APRN.CN [address] [place] [address] OB OB/Gynecology Comment on above: OB Start: 03-30-2025 End: 03-30-2025 Patient encounter procedure 03/30/2025 9:40 AM EDT Routine Office Visit OB/Gynecology [address] [place] [address] Sunshine Goodman MD [address] [place] [address] OB OB/Gynecology Comment on above: OB Start: 03-22-2025 End: 03-22-2025 Patient encounter procedure 03/22/2025 1:30 PM EDT Routine Office Visit Maternal Medicine [address] [place] [address] Growth Maternal Medicine Comment on above: Growth Start: 03-21-2025 End: 03-21-2026 OBSTETRIC ULTRASOUND WHI OBSTETRIC ULTRASOUND WHI Anc Imaging Routine Supervision of high risk in third trimester (HCC) 36 weeks gestation of (HCC) Muscular ventricular septal defect (HCC) Uterine size-date discrepancy, third trimester (HCC) Expected: 03/21/2025, Expires: 03/21/[address] [facility] Work Phone: Comment on above: Expected: 03/21/2025 , Expires: 03/21/2026 Start: 03-21-2025 End: 03-21-2025 Patient encounter procedure 03/21/2025 8:00 AM EDT Routine Office Visit OB/Gynecology [address] [place] [address] Mumtaz Morales, BEADING SAWYER.MARITIME ENGINEER [address] [place] [address] ob OB/Gynecology Comment on above: ob Start: 03-16-2025 End: 03-16-2025 Patient encounter procedure 03/16/2025 1:15 PM EDT Routine Office Visit OB/Gynecology [address] [place] [address] Kate Castanon BEADING SAWYER.CNM [address] [place] [address] OB OB/Gynecology Comment on above: OB Start: 02-08-2025 End: 02-08-2025 ambulatory 02/08/2025 9:30 AM EDT [place] [address] [place] [address] Tiffany Gonzalez MD [address] [place], [place] [id number] Echo, Single , 26 Weeks PEDS CARD [facility] Comment on above: Echo, Single B irth, 26 Weeks Start: 02-08-2025 End: 02-08-2025 Patient encounter procedure 02/08/2025 9:30 AM EDT Office Visit PEDS CARD [facility] [address] [place] [address] muscular VSD Echo, Single , 26 Weeks PEDS CARD [facility] Comment on above: muscular VSD E cho, Single , 26 Weeks Start: 02-07-2025 End: 02-07-2025 Patient encounter procedure 02/07/2025 8:30 AM EDT Routine Office Visit OB/Gynecology [address] [place] [address] Meenakshi Jensen MD [address] [place], [place] [id number] OB OB/Gynecology Comment on above: OB Start: 01-25-2025 End: 04-26-2025 ANEMIA REFLEX PANEL ANEMIA REFLEX PANEL Lab Routine High risk teen in second trimester Expected: 01/25/2025 (Approximate), Expires: 04/26/2025 [facility] Comment on above: Expected: 01/25/2025 (Approximate), Expires: 04/26/2025 Start: 01-25-2025 End: 01-11-2026 GESTATIONAL GLUCOSE SCREEN, 1-HOUR, 50 GRAM, NON-FASTING GESTATIONAL GLUCOSE SCREEN, 1-HOUR, 50 GRAM, NON-FASTING Lab Routine Screening for diabetes mellitus Expected: 01/25/2025 (Approximate), Expires: 01/11/[address] [facility] Work Phone: Comment on above: Expected: 01/25/2025 (Approximate), Expires: 01/11/2026 Start: 01-25-2025 End: 01-11-2026 SYPHILIS TREPONEMAL W/REFLEX SYPHILIS TREPONEMAL W/REFLEX Lab Routine High risk teen in second trimester Expected: 01/25/2025 (Approximate), Expires: 01/11/2026 [facility] Comment on above: Expected: 01/25/2025 (Approximate), Expires: 01/11/2026 Start: 01-25-2025 End: 01-25-2025 Patient encounter procedure 01/25/2025 10:30 AM EDT Routine Office Visit OB/Gynecology [address] [place] [address] Wanda Gardiner APRN.CN [address] [place] [address] Glucose Test /OB OB/Gynecology Comment on above: Glucose Test /OB Start: 01-25-2025 End: 01-25-2025 ambulatory 01/25/2025 10:15 AM EDT Results Only [facility] [address] [place] [address] Glucose Test [facility] Comment on above: Glucose Test Start: 01-17-2025 End: 01-17-2025 ambulatory 01/17/2025 9:30 AM EDT Procedure Pediatric Cardiology [address] [place] [phone] Niharika Ingram MD [address] [place] [address] Echo, Single , 26 Weeks Pediatric Cardiology Comment on above: Echo, Single B irth, 26 Weeks Start: 01-17-2025 End: 01-17-2025 Patient encounter procedure 01/17/2025 9:30 AM EDT Office Visit Pediatric Cardiology [address] [place] [phone] Echo, Single , 26 Weeks Pediatric Cardiology Comment on above: Echo, Single B irth, 26 Weeks Start: 01-05-2025 End: 01-05-2025 Patient encounter procedure 01/05/2025 10:20 AM EDT Routine Office Visit OB/Gynecology [address] [place] [address] Rachele Rao MD [address] [place] [address] NEW OB LMP 07/11/24 OB/Gynecology Comment on above: NEW OB LMP 07/11/24 Start: 12-14-2024 End: 12-14-2024 Patient encounter procedure 12/14/2024 3:00 PM EST Routine Office Visit Maternal Medicine [address] [place] [address] Anatomy Maternal Medicine Comment on above: Anatomy Start: 12-06-2024 End: 03-07-2025 ANEMIA REFLEX PANEL [facility] Comment on above: Expected: 12/06/2024 , Expires: 03/07/2025 Start: 12-06-2024 End: 03-07-2025 Chromosome 21 trisomy [Presence] in Blood or Tissue by Cytogenetics [facility] Comment on above: Expected: 12/06/2024 , Expires: 03/07/2025 Start: 12-06-2024 End: 03-07-2025 Hemoglobin A1c in Blood [facility] Comment on above: Expected: 12/06/2024 , Expires: 03/07/2025 Start: 12-06-2024 End: 03-07-2025 Hepatitis B virus surface Ag [Presence] in Serum [facility] Comment on above: Expected: 12/06/2024 , Expires: 03/07/2025 Start: 12-06-2024 End: 03-07-2025 Hepatitis C virus Ab [Presence] in Serum [facility] Comment on above: Expected: 12/06/2024 , Expires: 03/07/2025 Start: 12-06-2024 End: 03-07-2025 HIV 1+2 Ab [Presence] in Serum or Plasma by Immunoassay [facility] Comment on above: Expected: 12/06/2024 , Expires: 03/07/2025 Start: 12-06-2024 End: 12-06-2025 OBSTETRIC ULTRASOUND WHI OBSTETRIC ULTRASOUND WHI Anc Imaging Routine with uncertain dates, antepartum Expected: 12/06/2024, Expires: 12/06/[address] [facility] Work Phone: Comment on above: Expected: 12/06/2024 , Expires: 12/06/2025 Start: 12-06-2024 End: 03-07-2025 RUBELLA IGG ANTIBODY [facility] Comment on above: Expected: 12/06/2024 , Expires: 03/07/2025 Start: 12-06-2024 End: 03-07-2025 SYPHILIS TREPONEMAL W/REFLEX [facility] Comment on above: Expected: 12/06/2024 , Expires: 03/07/2025 Start: 12-06-2024 End: 03-07-2025 TYPE + SCREEN [facility] Comment on above: Expected: 12/06/2024 , Expires: 03/07/2025 Start: 2024 Hepatitis B Vaccine (1 of 3 - 19+ 3-dose series) Hepatitis B Vaccine (1 of 3 - 19+ 3-dose series) [facility] Start: 2024 Urine microalbumin profile DTaP,Tdap,Td Vaccine (1 - Tdap) [facility] Start: 06-13-2024 Covid-19 Vaccine () Covid-19 Vaccine () [facility] Start: 06-13-2024 Covid-19 Vaccine ( season) Covid-19 Vaccine () [facility] Start: 06-13-2024 Influenza vaccination Influenza Vacc ine (#1) [facility] Start: 2023 Anxiety Screening Anxiety Screening [facility] Start: 2023 Depression Screening Depression Scre ening [facility] Start: 2023 GC (Gonorrhea) Scree manuel (1824) GC (Gonorrhea) Screening () [facility] Start: 2023 Hepatitis C screening Hepatitis C Sc reening [facility] Start: 2023 HIV screening HIV Screening [facility] Start: 2023 Screening for Chlamy gabi trachomatis Chlamydia Screening () [facility] Start: 2021 Meningococcal B Vacc ine (1 of 2 - Standard) Meningococcal B Vaccine (1 of 2 - Standard) [facility] Start: 2020 HPV Vaccine (1 - 3-d ose series) HPV Vaccine (1 - 3-dose series) [facility] Start: 2019 Peds To Adult Transi tion Annual Assessment Peds To Adult Transition Annual Assessment [facility] Start: 2017 Peds To Adult Transi tion Initial Discussion Peds To Adult Transition Initial Discussion [facility] Bacteria identified in Urine by Culture BACTERIAL CULTURE, URINE Microbiology Routine with uncertain dates, antepartum 12/06/2024 1:35 PM EST [facility] Chlamydia trachomatis+Neisseria gonorrhoeae DNA [Presence] in Unspecified specimen by KATELIN with probe detection GONORRHEA/CHLAMYDIA NAAT Lab Routine with uncertain dates, antepartum 12/06/2024 1:35 PM EST [facility] End: 12-14-2025 ECHO ECHO Cardiology Routine Ventricular septal defect (VSD) of fetus in [place] , antepartum Encounter for routine screening for malformation using ultrasonics 22 weeks gestation of 1 Occurrences starting 12/14/2024 until 12/14/[address] [facility] Work Phone: Comment on above: 1 Occurrences starti ng 12/14/2024 until 12/14/2025 ROUTINE, GR OUP B STREPTOCOCCUS BY PCR ROUTINE, GROUP B STREPTOCOCCUS BY PCR Microbiology Routine 36 weeks gestation of ([facility]) 03/21/2025 8:22 AM EDT [facility] Immunizations Immunization Date Immunization Notes Care Provider Myke oviedo 01-25-2025 tetanus toxoid, redu dasha diphtheria toxoid, and acellular pertussis vaccine, adsorbed Wanda Gardiner RAINER.CNM Work Phone: [facility] 06-24-2013 influenza virus vacc ine, unspecified formulation Nurse Wayne Work Phone: [facility] Payers Date Payer Category Payer Medicaid [id number] 2024 Unknown [id number] 2024 Self-pay 1975 Unknown [id number] 1975 Unknown [id number] 2.16. [id number] Unknown [id number] Unknown [id number] Unknown [id number] [id number] Unknown [id number] [id number] Social History Date Type Detail Facility [facility] Start: 12-03-2024 Tobacco use and exposure Smoke less tobacco non-user [facility] Start: 12-06-2024 End: 03-21-2025 Alcoholic beverage intake Lifetime non-drinker (finding) [facility] Start: 12-06-2024 End: 03-30-2025 History of Social function [facility] Start: 12-06-2024 End: 03-30-2025 Tobacco use panel [facility] National Score (1-10 0), lower number is lower risk 63 [facility] Start: 12-03-2024 Education 11 [facility] Start: 07-25-2024 [facility] Start: 2005 Sex assigned at Female C [facility] Start: 12-03-2024 Gender identity Identifies as female gender (finding) [facility] Start: 12-03-2024 Sexual orientation Heterosexual (sharyn nguyen) [facility] Clinical Notes 12-03-2024 to 04-08-2025 Quick Notes [...] and delivery - Clear for delivery at [facility] - Labor precautions and timing of contractions reviewed - questions answered - RTO 1 week or sooner if needed Kate Castanon APRN.CNM [facility] 04-08-2025 Miscellaneous Notes S: Damon Garza is [...] and delivery - Clear for delivery at [facility] - Labor precautions and timing of contractions reviewed - questions answered - RTO 1 week or sooner if needed Kate Castanon APRN.CNM documented in this encounter [facility] 04-08-2025 Instructions Yanely Krishnamurthy MA - 04/08/2025 4:29 PM EDT SEQUENTIAL SCREENINGS The [facility] offers sequential screenings for women who are [...] It will require an appointment with our health type technician. This is not an ultrasound performed [...] the above symptoms, contact our office at [phone] and ask to speak with a nurse. After hours, you can call doctors registry at [phone] OR call [facility] at [phone] and ask to have the doctor implementation engineer paged. If you consider this an emergency, dial 9-1-2 or go to your nearest emergency department. NEED HELP? Are you dealing with a violent or abusive relationship? Are you a victim of rape or sexual assult? Call [facility] ([place]) 24 hour Crisis Hotline: 204.853.3839 or 508-483-3671. MANUAL Your Guide to a Healthy manual is now on-line. Visit [email or web address] to download your free copy documented in this encounter [facility] 04-05-2025 Note HNO ID: [id number] Author: DOMINICK PAIZ, ? Service: ? Author Type: Patient Bottling Supervisor Type: Progress Notes Filed: 04/05/2025 08:20 Note Text: POPULATION HEALTH NAVIGATION OUTREACH Action/FYI 3rd attempt left message to add drafter geological to ob provider field Est care and scheduled PP to pcp Reason for Outreach Medicaid OB/Peds Care Gaps due: to PCP Visit Patient Contacted: Unable or unnecessary to reach patient: Unable to reach patient Left message Navigation Signature: Dominick Paiz Population Health Navigator April 05, 2025 8:19 AM [facility] 04-04-2025 Note HNO ID: [id number] Author: DOMINICK PAIZ, ? Service: ? Author Type: Patient Bottling Supervisor Type: Progress Notes Filed: 04/04/2025 08:41 Note Text: POPULATION HEALTH NAVIGATION OUTREACH Action/FYI Unable to reach patient to add drafter geological and PP to PCP Reason for Outreach Medicaid OB/Peds Care Gaps due: to PCP Visit Patient Contacted: Unable or unnecessary to reach patient: Unable to reach patient Unable to leave message MyChart message sent Navigation Signature: Dominick Paiz Population Health Navigator April 04, 2025 8:40 AM [facility] 04-04-2025 History of Presen t illness Narrative POPULATION HEALTH NAVIGATION OUTREACH Action/I Unable to reach patient to add drafter geological and PP to PCP Reason for Outreach Medicaid OB/Peds Care Gaps due: to PCP Visit Patient Contacted: Unable or unnecessary to reach patient: Unable to reach patient Unable to leave message Zase message sent Navigation Signature: Dominick Paiz Population Health Navigator April 04, 2025 8:40 AM documented in this encounter [facility] 04-04-2025 Note Patient Outreach (NE TNAV) DAMON GARZA ([id number]) 5 F Date Time Provider Department 04/04/25 DOMINICK PAIZ During your visit today, we recorded the following information about you: Dominick Paiz 04/04/2025 8:41 AM Signed POPULATION HEALTH NAVIGATION OUTREACH Action/ Unable to reach patient to add drafter geological and PP to PCP Reason for Outreach Medicaid OB/Peds Care Gaps due: to PCP Visit Patient Contacted: Unable or unnecessary to reach patient: Unable to reach patient Unable to leave message Zase message sent Navigation Signature: Dominick Paiz Population Health Navigator April 04, 2025 8:40 AM Dominick Paiz 04/05/2025 8:20 AM Signed POPULATION HEALTH NAVIGATION OUTREACH Action/FYI 3rd attempt left message to add drafter geological to ob provider field Est care and [...] 1 tablet by mouth once daily. - Gnvrufvu-Uf-Vpg-Fe-[id number] tab Take 1 tablet by mouth once daily. Problem List As Of Date 04/04/2025 Noted Resolved Supervision of high risk in third tri*12/06/2024 Late care [O09.30] 12/06/2024 Rubella non-immune status, antepartum [O09.899,*12/08/2024 Muscular ventricular septal defect (HCC) [Q21.0]12/15/2024 Group beta Strep positive [B95.1] 03/23/2025 Encounter Status:Closed by DOMINICK PAIZ on 04/04/25 [facility] 03-30-2025 Progress note Formatting of t his [...] during labor 6. Muscular ventricular septal defect -[facility] pediatricians aware, ok for delivery at [facility] PTL precautions reviewed and when to call RTO in 1 week aWnda Gardiner APRN.CNM [facility] 03-30-2025 Miscellaneous Notes BARRETT-S: Damon Garza is [...] during labor 6. Muscular ventricular septal defect -[facility] pediatricians aware, ok for delivery at [facility] PTL precautions reviewed and when to call RTO in 1 week Wanda Gardiner APRN.CNM documented in this encounter [facility] 03-30-2025 Note HNO ID: [id number] Author: WANDA GARDINER APRN.CNM Service: ? Author Type: Denture Finisher Type: Progress Notes Filed: 03/30/2025 10:10 Note Text: BARRETT- [facility] 03-30-2025 History of Presen t illness Narrative BARRETT- documented in this encounter [facility] 03-30-2025 Instructions Gia Russo MA - 03/30/2025 9:43 AM EDT SEQUENTIAL SCREENINGS The [facility] offers sequential screenings for women who are [...] It will require an appointment with our health type technician. This is not an ultrasound performed [...] the above symptoms, contact our office at [phone] and ask to speak with a nurse. After hours, you can call doctors registry at [phone] OR call [facility] at [phone] and ask to have the doctor implementation engineer paged. If you consider this an emergency, dial 9-1-4 or go to your nearest emergency department. NEED HELP? Are you dealing with a violent or abusive relationship? Are you a victim of rape or sexual assult? Call [facility] ([place]) 24 hour Crisis Hotline: 159.478.3155 or 247-024-3431. MANUAL Your Guide to a Healthy manual is now on-line. Visit [email or web address] [email or web address] to download your free copy documented in this encounter [facility] 03-22-2025 Note Indication Evaluation of growth. Discrepancy [...] 5 oz EFW by: Hadlock ([facility]-FL) Extended Supervisor Border Department 3.7 mm Extremities / Bony Struc [place] [...] By: Ariana Mcbride RDMS Read By: Pao Johnson M.D. [facility] 03-21-2025 Note HNO ID: [id number] Author: MUMTAZ MORALES APRN.MARITIME ENGINEER Service: ? Author Type: Nurse Practitioner Type: [...] Supervision of high risk in third trimester ([facility]) - ICD9: V23.9, ICD10: O09.93 (primary diagnosis) - Continue PNV and LDA 2. 36 weeks gestation of ([facility]) - ICD9: V22.2, ICD10: Z3A.36 - GBS today 3. Muscular ventricular septal defect ([facility]) - ICD9: 745.4, ICD10: Q21.0 - Cleared for delivery at [facility] 4. Uterine size-date discrepancy, third trimester ([facility]) - ICD9: 649.63, ICD10: O26.843 - S labor precautions and kick counts reviewed. RTO 1 in week or sooner as needed. Mumtaz Morales APRN.MARITIME ENGINEER [facility] 03-21-2025 History of Presen t illness Narrative [...] Supervision of high risk in third trimester ([facility]) - ICD9: V23.9, ICD10: O09.93 (primary diagnosis) - Continue PNV and LDA 2. 36 weeks gestation of ([facility]) - ICD9: V22.2, ICD10: Z3A.36 - GBS today - ultrasound 3. Muscular ventricular septal defect (HCC) - ICD9: 745.4, ICD10: Q21.0 - Cleared for delivery at [facility] 4. Uterine size-date discrepancy, third trimester ([facility]) - ICD9: 649.63, ICD10: O26.843 - S<D, growth ordered labor precautions and kick counts reviewed. RTO 1 in week or sooner as needed. Mumtaz Morales APRN.MARITIME ENGINEER documented in this encounter [facility] 03-21-2025 Instructions Yanely Krishnamurthy MA - 03/21/2025 7:58 AM EDT SEQUENTIAL SCREENINGS The [facility] offers sequential screenings for women who are [...] It will require an appointment with our health type technician. This is not an ultrasound performed [...] the above symptoms, contact our office at [phone] and ask to speak with a nurse. After hours, you can call [facility] at [phone] OR call [facility] at [phone] and ask to have the doctor implementation engineer paged. If you consider this an emergency, dial 9-1-0 or go to your nearest emergency department. NEED HELP? Are you dealing with a violent or abusive relationship? Are you a victim of rape or sexual assult? Call [facility] ([place]) 24 hour Crisis Hotline: 555.990.5103 or 937-409-8979. MANUAL Your Guide to a Healthy manual is now on-line. Visit the [email or web address] [email or web address] to download your free copy documented in this encounter [facility] 03-16-2025 Progress note Formatting of t his [...] defect - - Clear for delivery at [facility] precautions and kick counts reviewed - RTO 1 week or sooner if needed Kate Castanon APRN.CNM [facility] 03-16-2025 Miscellaneous Notes S: Damon Garza is [...] defect - - Clear for delivery at [facility] - PTL precautions and kick counts reviewed - RTO 1 week or sooner if needed Kate Castanon APRN.CNM documented in this encounter [facility] 03-16-2025 Instructions Bessy Willis MA - 03/16/2025 1:17 PM EDT SEQUENTIAL SCREENINGS The [facility] offers sequential screenings for women who are [...] It will require an appointment with our health type technician. This is not an ultrasound performed [...] the above symptoms, contact our office at [phone] and ask to speak with a nurse. After hours, you can call doctors registry at [phone] OR call [facility] at [phone] and ask to have the doctor implementation engineer paged. If you consider this an emergency, dial or go to your nearest emergency department. NEED HELP? Are you dealing with a violent or abusive relationship? Are you a victim of rape or sexual assult? Call [facility] ([facility] 24 hour Crisis Hotline: 313.560.8509 or 280-566-1593. MANUAL Your Guide to a Healthy manual is now on-line. Visit the [email or web address] [email or web address] to download your free copy documented in this encounter [facility] 03-08-2025 Telephone encounter Note 2nd risk assessment form submitted 03/08/25 Danna Olivera RN [facility] 03-08-2025 Miscellaneous Notes 2nd risk assessment form submitted 03/08/25 Danna Olivera RN documented in this encounter [facility] 03-02-2025 Note HNO ID: [id number] Author: GINGER SORIANO MD Service: ? Author Type: Physician Type: Progress Notes Filed: 03/02/2025 10:11 Note Text: Dr. Destini Langley NAME: Damon Garza CLINIC Number.: [id number] Date of : 2005 Date of Visit: [...] aorta, were explained. Delivery is planned in [place]. If there is a murmur or other [...] which included preparing to see the patient, [id number] patient care, completing clinical documentation, obtaining and/or reviewing separately obtained history, performing a medically appropriate examination, counseling and educating the patient/family/caregiver, ordering medications, tests, or procedures, communicating with other HCPs (not separately reported), independently interpreting results (not separately reported), communicating results to the patient/family/caregiver, and care coordination (not separately reported). Sincerely, Dr. Ginger Soriano [facility] 01-25-2025 Note HNO ID: [id number] Author: KAYDEN ACEVEDO MA Service: ? Author Type: Dock Boss Type: Progress Notes Filed: 01/25/2025 12:21 Note [...] severely ill: Yes Patient denies history of Guillain-Timewell Syndrome (a severe paralytic illness): Yes Tdap Adacel injection was given without incident. See immunizations for details of immunizations administered today. VIS sheet provided: Yes Provider Wanda Gardiner APRN CNM was present in office at time of injection. Kayden Acevedo MA [facility] 01-25-2025 History of Presen t illness Narrative [...] severely ill: Yes Patient denies history of Guillain-Timewell Syndrome (a severe paralytic illness): Yes Tdap [...] Wanda Gardiner APRN.CNM documented in this encounter [facility] 01-25-2025 Note HNO ID: [id number] Author: WANDA GARDINER APRN.CNM Service: ? Author Type: Denture Finisher Type: Progress Notes Filed: 01/25/2025 12:21 Note [...] or sooner if needed Wanda Gardiner APRN.CNM [facility] 01-13-2025 Telephone encounter Note 2nd risk assessment form submitted 01/13/25 Danna Olivera RN [facility] 01-13-2025 Miscellaneous Notes 2nd risk assessment form submitted 01/13/25 Danna Olivera RN documented in this encounter [facility] 01-11-2025 Progress note Formatting of t his [...] PTL & FM precautions Destini Langley MD [facility] 01-11-2025 Miscellaneous Notes KJ - S: Damon [...] Destini Langley MD documented in this encounter [facility] 01-11-2025 Instructions Bessy Willis MA - 01/11/2025 9:54 AM EDT SEQUENTIAL SCREENINGS The [facility] offers sequential screenings for women who are [...] It will require an appointment with our health type technician. This is not an ultrasound performed [...] the above symptoms, contact our office at [phone] and ask to speak with a nurse. After hours, you can call doctors registry at [phone] OR call [facility] at [phone] and ask to have the doctor implementation engineer paged. If you consider this an emergency, dial 9-4-6 or go to your nearest emergency department. NEED HELP? Are you dealing with a violent or abusive relationship? Are you a victim of rape or sexual assult? Call [facility] ([place]) 24 hour Crisis Hotline: 469.691.5630 or 008-980-6702. MANUAL Your Guide to a Healthy manual is now on-line. Visit [email or web address] [email or web address] to download your free copy documented in this encounter [facility] 12-14-2024 Note Addended by: ALBERTO FINCH on: 12/14/2024 04:22 PM Modules accepted: Orders [facility] 12-14-2024 Miscellaneous Notes Addended by: ALBERTO FINCH on: 12/14/2024 04:22 PM Modules accepted: Orders documented in this encounter [facility] 12-14-2024 Note HNO ID: [id number] Author: ALBERTO FINCH MD Service: ? Author Type: Physician Type: Progress Notes Filed: 12/14/2024 15:42 Note Text: Patient here for routine anatomy scan. See ultrasound report for details. [facility] 12-14-2024 History of Presen t illness Narrative Patient here for routine anatomy scan. See ultrasound report for details. [facility] documented in this encounter [facility] 12-07-2024 Telephone encounter Note 1st risk assessment form submitted 12/07/2024. Natalya Mendoza RN [facility] 12-07-2024 Miscellaneous Notes 1st risk assessment form submitted 12/07/2024. Natalya Mendoza RN documented in this encounter [facility] 12-06-2024 Progress note Formatting of t his note might be different from the original. Patient is at 21.1 weeks gestation here for NOB. This is patient's first visit. Seen in early by support center and had ultrasound completed. Needs labs and anatomy US. Proof of letter provided for [facility] services. Kate Castanon APRN.CNM [facility] 12-06-2024 Miscellaneous Notes Patient is at 21.1 weeks gestation here for NOB. This is patient's first visit. Seen in early by support center and had ultrasound completed. Needs labs and anatomy US. Proof of letter provided for [facility] services. Kate Castanon APRN.CNM documented in this encounter [facility] 12-06-2024 Note HNO ID: [id number] Author: KATE CASTANON APRN.CNM Service: ? Author Type: Denture Finisher Type: Progress Notes Filed: 12/06/2024 13:40 Note Text: NO POC US completed due to patient being 21 weeks gestation. Kate Castanon APRN.CNM [facility] 12-06-2024 History of Presen t illness Narrative NO POC US completed due to patient being 21 weeks gestation. 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 No pertinent past [...] discussed with the Patient or Patient's Authorized Choir Director. As applicable, any other physician, advance practice provider, medical student, or other health professional student that will be observing or involved in the sensitive examination for educational or training purposes was discussed with the Patient or Authorized Choir Director. The Patient or Authorized Choir Director has agreed to proceed with the sensitive [...] Your guide to a health and the [place]. Reviewed midwifery and die equipment operator services that are available. 2) Screening: Hemoglobin [...] IFRAH Castanon APRN.CNM documented in this encounter [facility] 12-03-2024 Note HNO ID: [id number] Author: KATE CASTANON APRN.CNM Service: ? 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 No pertinent past [...] discussed with the Patient or Patient's Authorized Choir Director. As applicable, any other physician, advance practice provider, medical student, or other health professional student that will be observing or involved in the sensitive examination for e (more content not included)... [facility] 12-03-2024 Instructions Kayden Acevedo MA - 12/03/2024 12:56 PM EST Please select the following link to access the [facility] Your Guide to a Healthy . [email or web address] Please select the following link to access the [facility] Your Guide to a Healthy . [email or web address] documented in this encounter [facility] Evaluation note Diagnosis with uncertain dates, antepartum- Primary state, incidental 21 weeks gestation of state, incidental Encounter for supervision of high risk due to anomaly, second trimester High risk teen in second trimester Late care Insufficient care [facility] Diagnosis Encounter for routine screening for malformation using ultrasonics- Primary Ventricular septal defect (VSD) of fetus in [place] , antepartum 22 weeks gestation of state, incidental [facility] Diagnosis High risk teen in second trimester ([facility])- Primary Screening for diabetes mellitus Suspected anomaly, antepartum, single or unspecified fetus ([facility]) [facility] Diagnosis Encounter for supervision of high risk due to anomaly, second trimester ([facility])- Primary Late care ([facility]) Insufficient care 28 weeks gestation of ([facility]) state, incidental Muscular ventricular septal defect ([facility]) Ventricular septal defect Rubella non-immune status, antepartum ([facility]) Other specified complication, antepartum Need for vaccination Need for prophylactic vaccination and inoculation against unspecified single disease [facility] Diagnosis 35 weeks gestation of ([facility])- Primary state, incidental Supervision of high risk in third trimester ([facility]) Unspecified high-risk Encounter for supervision of high risk due to anomaly, second trimester ([facility]) Muscular ventricular septal defect ([facility]) Ventricular septal defect [facility]* Diagnosis Supervision of high risk in third trimester ([facility])- Primary Unspecified high-risk 36 weeks gestation of ([facility]) state, incidental Muscular ventricular septal defect ([facility]) Ventricular septal defect Uterine size-date discrepancy, third trimester ([facility]) [facility] Diagnosis Supervision of high risk in third trimester ([facility]) Unspecified high-risk 36 weeks gestation of ([facility]) state, incidental Muscular ventricular septal defect ([facility]) Ventricular septal defect Uterine size-date discrepancy, third trimester ([facility]) [facility] Diagnosis Encounter for supervision of high risk due to anomaly, second trimester ([facility])- Primary [facility] Diagnosis Supervision of high risk in third trimester ([facility])- Primary Unspecified high-risk 37 weeks gestation of ([facility]) state, incidental Uterine size-date discrepancy, third trimester ([facility]) Late care ([facility]) Insufficient care Group beta Strep positive Muscular ventricular septal defect ([facility]) Ventricular septal defect [facility] Diagnosis Supervision of high risk in third trimester ([facility])- Primary Unspecified high-risk Uterine size-date discrepancy, third trimester ([facility]) Group beta Strep positive Muscular ventricular septal defect (HCC) Ventricular septal defect 38 weeks gestation of (HCC) state, incidental documented in this encounter [facility] for visit Narrative* Diagnostic Procedure Only (Routine) - Closed Specialty Diagnoses / Procedures Referred By Agus [email or web address] Referred To Contact [facility] Diagnoses with uncertain dates, antepartum Procedures OBSTETRIC ULTRASOUND WHI US PREG UTERUS AFTER 1ST TRIMEST GESTATION Kate Castanon APRN.[facility] [address] [place] [address] Phone: tel: fax: [facility] [address] [place] [address] Referral ID Status Reason Start Date Expiration Date V isits Requested Visits Authorized [id number] Closed Auto-Generate d Referral 12/06/2024 12/06/2025 1 1 [facility] Summary Purpose Family History No Family History Records FoundNo Family History Records FoundNo Family History Records FoundNo Family History Records Found Advance Directives No Advanced Directives Records FoundNo Advanced Directives Records FoundNo Advanced Directives Records FoundNo Advanced Directives Records Found Additional Source Comments INFORMATION SOURCE (unrecogn ized section and content) DATE CREATED AUTHOR 01/29/2023 [facility] DATE CREATED AUTHOR AUTHOR'S ORGANIZ ATION 12/26/2024 [facility] DATE CREATED AUTHOR AUTHOR'S ORGANIZ ATION 03/02/2025 [facility] DATE CREATED AUTHOR AUTHOR'S ORGANIZ ATION 04/06/2025 [facility] Source Comments (unrecognize d section and content) In the event this informatio n is protected by the Federal Confidentiality of Alcohol and Drug Abuse Patient Records regulations: The Federal rules restrict any use of the information to criminally investigate or prosecute any alcohol or drug abuse patient.[facility] the event this information is protected by the Federal Confidentiality of Alcohol and Drug Abuse Patient Records regulations: The Federal rules restrict any use of the information to criminally investigate or prosecute any alcohol or drug abuse patient.[facility] the event this information is protected by the Federal Confidentiality of Alcohol and Drug Abuse Patient Records regulations: The Federal rules restrict any use of the information to criminally investigate or prosecute any alcohol or drug abuse patient.[facility] Hospital[facility] the event this information is protected by the Federal Confidentiality of Alcohol and Drug Abuse Patient Records regulations: The Federal rules restrict any use of the information to criminally investigate or prosecute any alcohol or drug abuse patient.[facility] Hospital[facility] the event this information is protected by the Federal Confidentiality of Alcohol and Drug Abuse Patient Records regulations: The Federal rules restrict any use of the information to criminally investigate or prosecute any alcohol or drug abuse patient.[facility] Hospital[facility] the event this information is protected by the Federal Confidentiality of Alcohol and Drug Abuse Patient Records regulations: The Federal rules restrict any use of the information to criminally investigate or prosecute any alcohol or drug abuse patient.[facility] Hospital[facility] the event this information is protected by the Federal Confidentiality of Alcohol and Drug Abuse Patient Records regulations: The Federal rules restrict any use of the information to criminally investigate or prosecute any alcohol or drug abuse patient.[facility] Hospital[facility] the event this information is protected by the Federal Confidentiality of Alcohol and Drug Abuse Patient Records regulations: The Federal rules restrict any use of the information to criminally investigate or prosecute any alcohol or drug abuse patient.[facility] Hospital[facility] the event this information is protected by the Federal Confidentiality of Alcohol and Drug Abuse Patient Records regulations: The Federal rules restrict any use of the information to criminally investigate or prosecute any alcohol or drug abuse patient.[facility] Hospital[facility] the event this information is protected by the Federal Confidentiality of Alcohol and Drug Abuse Patient Records regulations: The Federal rules restrict any use of the information to criminally investigate or prosecute any alcohol or drug abuse patient.[facility] HospitalIn the event this information is protected by the Federal Confidentiality of Alcohol and Drug Abuse Patient Records regulations: The Federal rules restrict any use of the information to criminally investigate or prosecute any alcohol or drug abuse patient.[facility] HospitalIn the event this information is protected by the Federal Confidentiality of Alcohol and Drug Abuse Patient Records regulations: The Federal rules restrict any use of the information to criminally investigate or prosecute any alcohol or drug abuse patient.[facility] HospitalIn the event this information is protected by the Federal Confidentiality of Alcohol and Drug Abuse Patient Records regulations: The Federal rules restrict any use of the information to criminally investigate or prosecute any alcohol or drug abuse patient.[facility] HospitalIn the event this information is protected by the Federal Confidentiality of Alcohol and Drug Abuse Patient Records regulations: The Federal rules restrict any use of the information to criminally investigate or prosecute any alcohol or drug abuse patient.[facility] Reason for Visit (unrecogniz ed section and content) Reason Comments Initial OB Visit 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 Diagnoses Supervision of high risk in third trimester (HCC) 36 weeks gestation of (HCC) Muscular ventricular septal defect (HCC) Uterine size-date discrepancy, third trimester (HCC) Procedures OBSTETRIC ULTRASOUND WHI US PREG UTERUS AFTER 1ST TRIMEST GESTATION Mumtaz Morales APRN.[employer] [address] [place] [address] Phone: tel: fax: [facility] [address] [place] [address] Referral ID Status Reason Start Date Expiration Date V isits Requested Visits Authorized [id number] Closed Auto-Generate d Referral 03/21/2025 03/21/2026 1 [...] BE BASED ON THE PRIMARY CLINICAL RECORDS. [employer] provides no warranty or guarantee of the accuracy or completeness of information in this document.
--- OUTSIDE RECORDS SUMMARY | 2025-04-09 11:49 | XMS RPT_ITS | CCD ---
Author Organization [facility] Care Team Providers Care Timekeeper Supervisor Name Role Phone RADHA BARAJAS Attending Unavailable REFERRED, SELF Referring Unavailable CAITLYN BRUNNER Primary Care Unavailable CAITLYN BRUNNER Attending Unavailable REFERRED, SELF Referring Unavailable CAITLYN BRUNNER Primary Care Unavailable Unavailable Primary Care Provider Unavaillópez Haley METAL ANNEALER, Minda Primary Care UnavailNurys Roberson Attending Unavailable Hagerman METAL ANNEALER, Berea Primary Care UnavailJosh Pretty Attending Unavailable Nurys Allan Attending Unavailable Hagerman METAL ANNEALER, Berea Primary Care UnavailGINGER Suggs Attending Unavailable WANDA GARDINER Attending Unavailable WANDA GARDINER Attending Unavailable MUMTAZ MORALES Referring Unavailable MUMTAZ MORALES Attending Unavailable KAET CASTANON Attending Unavailable VALERIA, WANDA Attending Unavailable [...] once daily. 90 tablet 3 12/06/2024 Active Otbulwjz-Ju-Cpv-Fe -FA tab (14 sources) Start: 12-06-2024 take 1 tablet by mouth once daily Zmlzagne-Nb-Gjr-F e-FA tab Take 1 tablet by mouth [...] trimester; Translations: [Uterine size-date discrepancy, third trimester ([facility])] Onset: 03-30-2025 Episodic Other complications of (1 source) Supervision of other high risk pregnancies, second trimester; Translations: [High risk teen in second trimester ([facility])] Onset: 01-25-2025 Episodic Other screening [...] of ; Translations: [22 weeks gestation of ([facility])] Onset: 03-01-2025 Episodic Residual codes; [...] of ; Translations: [37 weeks gestation of ([facility])] Onset: 03-30-2025 Episodic Residual codes; unclassified (1 source) 36 weeks gestation of ; Translations: [36 weeks gestation of ([facility])] Onset: 03-22-2025 Episodic Residual codes; unclassified (1 source) 35 weeks gestation of ; Translations: [35 weeks gestation of ([facility])] Onset: 03-16-2025 Episodic Residual codes; unclassified (1 source) 33 weeks gestation of ; Translations: [33 weeks gestation of ([facility])] Onset: 03-02-2025 Episodic Residual codes; unclassified (1 source) Gestation period, 38 weeks; Translations: [38 weeks gestation of ] 04-08-2025 Episodic Unclassified (1 source) Ventricular septal defect (VSD) of fetus in [place] , antepartum ([facility]); Translations: [Ventricular septal defect (VSD) of fetus in [place] , antepartum ([facility])] Onset: 03-01-2025 Past or Other [...] insufficient care, unspecified trimester; Translations: [Late care ([facility])] Onset: 12-06-2024 Episodic Other and [...] 5 Glucose Ql (U) Negative Neg mg/dL [facility] Interpretation and review of laboratory results Normal [facility] Protein.monoclonal (U) [Mass/Vol] trace Neg mg/dL [facility] URINE OB DIP B/Oon 5 Glucose Ql (U) Negative Neg mg/dL [facility] Protein.monoclonal (U) [Mass/Vol] trace Neg mg/dL [facility] Examination level ultrasound on 03-22-2025 [facility] Radiology Study observation (narrative) [facility] ROUTINE, GROUP B ST REPTOCOCCUS BY PCRon 03-21-2025 ROUTINE, GROUP B STREPTOCOCCUS BY PCR Detected Abnormal [facility] Comment on above: Performed By: #### G BPCR ####[facility] LABCLIA [id number] [address] [place] URINE OB DIP B/Oon 5 Glucose Ql (U) Negative Neg mg/dL [facility] Interpretation and review of laboratory results Normal [facility] Protein.monoclonal (U) [Mass/Vol] Negative Neg mg/dL [facility] URINE OB DIP B/Oon 5 Glucose Ql (U) Negative Neg mg/dL [facility] Interpretation and review of laboratory results Normal [facility] Protein.monoclonal (U) [Mass/Vol] Negative Neg mg/dL [facility] CNPNon 03-08-2025 CNPN Telephone (OGFVWE) DAMON GARZA ([id number]) 5 F Date Time Provider Department 03/08/25 NURSE TOOL AND DIE REPAIRER FRVW DEXTER OGFVWE During your visit today, we recorded [...] 1 tablet by mouth once daily. - Qowspicp-Gu-Iyx-Fe-FA tab Take 1 tablet by mouth once daily. Problem List As Of Date 03/08/2025 Noted Resolved Encounter for supervision of high risk pregnanc*12/06/2024 Late care [O09.30] 12/06/2024 Rubella non-immune status, antepartum [O09.899,*12/08/2024 Muscular ventricular septal defect (HCC) [Q21.0]12/15/2024 Encounter Status:Closed by DANNA OLIVERA on 03/08/25 [facility] 03-01-2025 GABRIELLAN Telephone (OBGYWM) DAMON GARZA ([id number]) 5 F Date Time Provider Department 03/01/25 DESTINI LANLGEY During your visit today, we recorded the following information about you: Martha Araujo RN 03/01/2025 1:11 PM Signed [facility] To KJ to sign. CLAIR Paulino [...] 1 tablet by mouth once daily. - Tnlrcuyb-Xh-Kvs-Fe-FA tab Take 1 tablet by mouth once daily. Problem List As Of Date 03/01/2025 Noted Resolved Encounter for supervision of high risk pregnanc*12/06/2024 Late care [O09.30] 12/06/2024 Rubella non-immune status, antepartum [O09.899,*12/08/2024 Muscular ventricular septal defect [Q21.0] 12/15/2024 Encounter Status:Closed by NATALYA PRUITT on 03/04/25 Normal [facility] FETALon 03-01-2025 + - -------+-+ Pediatric Cardiology Echocardiogram Report + -------+-+ NAME: DAMON GARZA : 2005 PT ID#: [id number] Age: 19 years Sex: F STUDY DATE: 03/01/2025 12:54:22 PM PRETTY: 04/17/2025 GA: [id number] Image Quality: The images were of adequate diagnostic quality. Referring Physician: Alberto Finch Diagnosing Physician: Ginger Soriano Factory Engineer: Amy Quinones [facility] 2nd Factory Engineer: Diagnosis: O35.1MV8Ihplvwjif abnormality and damage, single fetus or unspecified Procedure Code: 33286, 90144, 38202 Echo, Complete (w/Doppler and color) Exam Location: [facility] (). Indications: Evaluate cardiac anatomy and function [...] rate and rhythm. HR 131 bpm Mechanical ME 93 ms Segmental Anatomy, Cardiac Position and [...] on 03/01/2025 at 2:16:13 PM Final CC [email or web address] Image : [id number] See Link below for Image Normal [facility] CBC W Auto Differential pane l (Bld)on 01-25-2025 Basophils (Bld) [#/Vol] 0.05 10*3/uL Normal <0.11 [facility] Comment on above: Order Comment: Speci men Type: BLOOD SPECIMENOrdering Facility: [facility] Address: [address] [place] [address] Performed By: #### 5 7021-8 ####[facility] [id number] [place] [address] [place] Basophils/100 WBC (Bld) 0.6 % Normal [facility] Comment on above: Order Comment: Speci men Type: BLOOD SPECIMENOrdering Facility: [facility] Address: [address] [place] [address] Performed By: #### 5 7021-8 ####[facility] [id number] [place] [address] [place] Differential cell count method Nom (Bld) Auto Normal [facility] Comment on above: Order Comment: Speci men Type: BLOOD SPECIMENOrdering Facility: [facility] Address: [address] [place] [address] Performed By: #### 5 7021-8 ####[facility] MILLTOWNCLIA [id number] [place] [address] [place] Eosinophils (Bld) [#/Vol] 0.07 10*3/uL Normal <0.46 [facility] Comment on above: Order Comment: Speci men Type: BLOOD SPECIMENOrdering Facility: [facility] Address: [address] [place] [address] Performed By: #### 5 7021-8 ####[facility] MILLWNARDALIA [id number] [place] [address] [place] Eosinophils/100 WBC (Bld) 0.8 % Normal [facility] Comment on above: Order Comment: Speci men Type: BLOOD SPECIMENOrdering Facility: [facility] Address: [address] [place] [address] Performed By: #### 5 7021-8 ####[facility]ENTERWNCLIA [id number] [place] [address] [place] Erythrocyte distribution width (RBC) [Ratio] 12.0 % Normal 11.5-15.0 [facility] Comment on above: Order Comment: Speci men Type: BLOOD SPECIMENOrdering Facility: [facility] Address: [address] [place] [address] Performed By: #### 5 7021-8 ####[facility] MILLTOWNCLIA [id number] [place] [address] [place] Hematocrit (Bld) [Volume fraction] 32.6 % Low 36.0-46.0 [facility] Comment on above: Order Comment: Speci men Type: BLOOD SPECIMENOrdering Facility: [facility] Address: [address] [place] [address] Performed By: #### 5 7021-8 ####[facility] [id number] [place] [address] [place] Hemoglobin (Bld) [Mass/Vol] 11.3 g/dL Low 11.5-15.5 [facility] Comment on above: Order Comment: Speci men Type: BLOOD SPECIMENOrdering Facility: [facility] Address: [address] [place] [address] Performed By: #### 5 7021-8 ####[facility] [id number] [place] [address] [place] Immature granulocytes (Bld) [#/Vol] 0.04 10*3/uL Normal <0.10 [facility] Comment on above: Order Comment: Speci men Type: BLOOD SPECIMENOrdering Facility: [facility] Address: [address] [place] [address] Performed By: #### 5 7021-8 ####[facility] [id number] [place] [address] [place] Immature granulocytes/100 WBC (Bld) 0.5 % Normal [facility] Comment on above: Order Comment: Speci men Type: BLOOD SPECIMENOrdering Facility: [facility] Address: [address] [place] [address] Performed By: #### 5 7021-8 ####[facility] [id number] [place] [address] [place] Lymphocytes (Bld) [#/Vol] 1.73 10*3/uL Normal 1.00-4.00 [facility] Comment on above: Order Comment: Speci men Type: BLOOD SPECIMENOrdering Facility: [facility] Address: [address] [place] [address] Performed By: #### 5 7021-8 ####[facility] [id number] [place] [address] [place] Lymphocytes/100 WBC (Bld) 20.1 % Normal [facility] Comment on above: Order Comment: Speci men Type: BLOOD SPECIMENOrdering Facility: [facility] Address: [address] [place] [address] Performed By: #### 5 7021-8 ####[facility] [id number] [place] [address] [place] MCH (RBC) [Entitic mass] 29.6 pg Normal 26.0-34.0 [facility] Comment on above: Order Comment: Speci men Type: BLOOD SPECIMENOrdering Facility: [facility] Address: [address] [place] [address] Performed By: #### 5 7021-8 ####[facility] [id number] [place] [address] [place] MCHC (RBC) [Mass/Vol] 34.7 g/dL Normal 30.5-36.0 [facility] Comment on above: Order Comment: Speci men Type: BLOOD SPECIMENOrdering Facility: [facility] Address: [address] [place] [address] Performed By: #### 5 7021-8 ####[facility] [id number] [place] [address] [place] MCV (RBC) [Entitic vol] 85.3 fL Normal 80.0-100.0 [facility] Comment on above: Order Comment: Speci men Type: BLOOD SPECIMENOrdering Facility: [facility] Address: [address] [place] [address] Performed By: #### 5 7021-8 ####[facility] [id number] [place] [address] [place] Monocytes (Bld) [#/Vol] 0.41 10*3/uL Normal <0.87 [facility] Comment on above: Order Comment: Speci men Type: BLOOD SPECIMENOrdering Facility: [facility] Address: [address] [place] [address] Performed By: #### 5 7021-8 ####[facility] MILLTOWNCLIA [id number] [place] [address] [place] Monocytes/100 WBC (Bld) 4.8 % Normal [facility] Comment on above: Order Comment: Speci men Type: BLOOD SPECIMENOrdering Facility: [facility] Address: [address] [place] [address] Performed By: #### 5 7021-8 ####[facility]ITALNCLIA [id number] [place] [address] [place] Neutrophils (Bld) [#/Vol] 6.31 10*3/uL Normal 1.45-7.50 [facility] Comment on above: Order Comment: Speci men Type: BLOOD SPECIMENOrdering Facility: [facility] Address: [address] [place] [address] Performed By: #### 5 7021-8 ####[facility]ENTERWNCLIA [id number] [place] [address] [place] Neutrophils/100 WBC (Bld) 73.2 % Normal [facility] Comment on above: Order Comment: Speci men Type: BLOOD SPECIMENOrdering Facility: [facility] Address: [address] [place] [address] Performed By: #### 5 7021-8 ####[facility] MILLWNCLIA [id number] [place] [address] [place] Nucleated RBC (Bld) [#/Vol] 10*3/uL Normal <0.01 [facility] Comment on above: Order Comment: Speci men Type: BLOOD SPECIMENOrdering Facility: [facility] Address: [address] [place] [address] Performed By: #### 5 7021-8 ####[facility] MILLWNCLIA [id number] [place] [address] [place] Nucleated RBC/100 WBC (Bld) [Ratio] 0.0 /100 WBC Normal [facility] Comment on above: Order Comment: Speci men Type: BLOOD SPECIMENOrdering Facility: [facility] Address: [address] [place] [address] Performed By: #### 5 7021-8 ####[facility]PITALNARDALisa [id number] [place] [address] [place] Platelet mean volume (Bld) [Entitic vol] 9.4 fL Normal 9.0-12.7 [facility] Comment on above: Order Comment: Speci men Type: BLOOD SPECIMENOrdering Facility: [facility] Address: [address] [place] [address] Performed By: #### 5 7021-8 ####[facility] [id number] [place] [address] [place] Platelets (Bld) [#/Vol] 296 10*3/uL Normal 150-400 [facility] Comment on above: Order Comment: Speci men Type: BLOOD SPECIMENOrdering Facility: [facility] Address: [address] [place] [address] Performed By: #### 5 7021-8 ####[facility] ALONHOLCOMBNARDALILYA [id number] [place] [address] [place] RBC (Bld) [#/Vol] 3.82 10*6/uL Low 3.90-5.20 [facility] Comment on above: Order Comment: Speci men Type: BLOOD SPECIMENOrdering Facility: [facility] Address: [address] [place] [address] Performed By: #### 5 7021-8 ####[facility]ITALNCLI [id number] [place] [address] [place] WBC (Bld) [#/Vol] 8.61 10*3/uL Normal 3.70-11.00 [facility] Comment on above: Order Comment: Speci men Type: BLOOD SPECIMENOrdering Facility: [facility] Address: [address] [place] [address] Performed By: #### 5 7021-8 ####[facility] [id number] [place] [address] [place] GESTATIONAL GLUCOSE SCREEN, 1-HOUR, 50 GRAM, NON-FASTINGon 01-25-2025 Glucose [Mass/Vol] 100 mg/dL Normal 74-134 [facility] Comment on above: Order Comment: Tom avendaño Type: BLOOD SPECIMENOrdering Facility: [facility] Address: [address] [place] [address] Result Comment: [facility] Congress of Obstetricians and Gynecologists (David/Tiffany) guidelines state a gestational diabetes mellitus positive screen is made, in women not previously diagnosed with overt diabetes, when the 1 hr plasma glucose level is equal to or above 140 mg/dL. The [facility] [employer] and [facility] recommends a 135 mg/dL cutoff. Performed By: #### G LTGST ####[facility] [id number] [place] [address] [place] Reagin and Treponema pallidu m IgG and IgM [Interp]on 01-25-2025 T. pallidum IgG+IgM IA Ql (S) Non-Reactive Normal Nonreactive [facility] Comment on above: Order Comment: Speci men Type: BLOOD SPECIMENOrdering Facility: [facility] Address: [address] [place] [address] Performed By: #### 7 3752-8 ####[facility] LABCLIA [id number] [place] [address] [place] Reagin+T pallidum IgG+IgM Se rPl-Impon 01-25-2025 Reagin and Treponema pallidum IgG and IgM [Interp] Cannot exclude recent Treponemal infection if specimen collected within 7-10 days after appearance of suspect lesions or 2-3 weeks after an exposure. Clinical correlation is required. Normal [facility] Comment on above: Order Comment: Speci men Type: BLOOD SPECIMENOrdering Facility: [facility] Address: [address] [place] [address] Performed By: #### 7 3752-8 ####[facility] LABCLIA [id number] [facility] OCONOMOWOCDESK [id number] [address] CNPNon 01-13-2025 CNPN Telephone (OGFVWE) DAMON GARZA ([id number]) 5 F Date Time Provider Department 01/13/25 NURSE TOOL AND DIE REPAIRER FRVW DEXTER OGFVWE During your visit today, we recorded [...] 1 tablet by mouth once daily. - Mrkiaoig-Vk-Qmm-Fe-FA tab Take 1 tablet by mouth once daily. Problem List As Of Date 01/13/2025 Noted Resolved Encounter for supervision of high risk pregnanc*12/06/2024 Late care [O09.30] 12/06/2024 Rubella non-immune status, antepartum [O09.899,*12/08/2024 Muscular ventricular septal defect [Q21.0] 12/15/2024 Encounter Status:Closed by DANNA OLIVERA on 01/13/25 Normal [facility] Examination level ultrasound on 12-14-2024 Indication [...] If VSD is confirmed, will refer to [facility] for coordination of care Maternal Assessment [...] 0 oz EFW by: Hadlock (HC-AC-FL) Extended Offset Printing Operator 6.9 mm CM 4.3 mm 14% Nicolaides [...] normal LVOT view: normal 3-vessel view: normal 2-pgiawh-eqfqpoc view: normal Heart / Thorax 4-chamber view: [...] By: Alberto Finch M.D., Ph.D. MATERNAL MEDICINE [facility] Radiology Study observation (narrative) [facility] Urine Cultureon 12-14-2024 URC #1, 2 Below infectio n level. Urine Culture Mixed Gram Positive Organisms [place] Count 1000-10,000 MIXC Mixed contaminants. Submit a new specimen if indicated. STAGA [place] Count <1000 Normal [facility] Comment on above: Performed By: #### M 100.2200 #### [facility] [address] [place], [address] Emergency Department Summary on 12-11-2024 Emergency Department Summary [facility] Medical Records Department [address] [place] [address] Emergency Department Summary 12/11/24 MR#: [id number] Acct: [id number] Name: DAMON GARZA Rep #: [id number] : 2005 19 From: Nurys Allan DO [...] Clarity Cloudy Urine pH 8.0 Ur Specific [place] 1.010 Urine Protein 15 H Urine Glucose (UA) Normal Urine Ketones 15 H Urine Occult Blood Negative Urine Nitrite Negative Urine Bilirubin Negative Urine Urobilinogen Normal Ur Leukocyte Esterase 500 H Urine RBC 0-5 SEEN Urine WBC 10-25 SEEN Ur Squamous Epith Cells 0-5 SEEN Urine Bacteria 2+ Urine Mucus RARE Treatment and Re-Evaluation :: Differential diagnosis (more content not included)... Normal [facility] Urinalysis, Completeon 12-11 BACTERIA 2+ /hpf Normal None Seen [facility] Comment on above: Order Comment: DELMI CTOR TO SPECIFY Performed By: #### L 400.0001 #### [facility] [address] [place], [place], [address] EPI,SQUAMOUS 0-5 SEEN Normal 5-10 [facility] Comment on above: Order Comment: DELMI CTOR TO SPECIFY Performed By: #### L 400.0001 #### [facility] [address] [place], [place], [address] Mucus Ql (Urine sed) RARE Normal [facility] Comment on above: Order Comment: DELMI CTOR TO SPECIFY Performed By: #### L 400.0001 #### [facility] [address] [place], [address] RBC 0-5 SEEN Normal 0-5 [facility] Comment on above: Order Comment: DELMI CTOR TO SPECIFY Performed By: #### L 400.0001 #### [facility] [address] [place], [place], [address] WBC 10-25 SEEN Normal 0-5 [facility] Comment on above: Order Comment: DELMI CTOR TO SPECIFY Performed By: #### L 400.0001 #### [facility] [address] [place], [place], [address] CNPNon [facility]-07-2024 [id number] ([id number]) 5 F Date Time Provider Department 12/07/24 NATALYA MENDOZA [id number] During your visit today, we recorded the following information about you: Natalya Mendoza RN 12/07/2024 1:47 PM Signed 1st risk assessment form submitted 12/07/2024. 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 - Apybvqnx-Bv-Ddn-Fe-FA tab Take 1 tablet by mouth once daily. Problem List As Of Date 12/07/2024 Noted Resolved Encounter for supervision of high risk pregnanc*12/06/2024 Late care [O09.30] 12/06/2024 Encounter Status:Closed by NATALYA MENDOZA on 12/07/24 [facility] B[facility] Ur Culton Bacteria identified Cx Nom (U) ORGANISM ID: 1 10,000 -<50,000 CFU/ml Normal urogenital danielle Normal [facility] Comment on above: Performed By: #### 6 30-4 ####[facility] LABCLIA [id number] [place] [address] [place] C. trachomatis+N. gonorrhoea e DNA KATELIN+probe Ql (Unsp spec)on 12-06-2024 C. trachomatis rRNA KATELIN+probe Ql (Unsp spec) Not detected Normal Not detected [facility] Comment on above: Order Comment: Speci men Type: SWABOrdering Facility: [facility] Address: [address] [place] [address] Performed By: #### 3 6902-5 ####[facility] HOSPITAL[facility] [id number] [place] [address] [place] N. gonorrhoeae rRNA KATELIN+probe Ql (Unsp spec) Not detected Normal Not detected [facility] Comment on above: Order Comment: Speci men Type: SWABOrdering Facility: [facility] Address: [address] [place] [address] Performed By: #### 3 6902-5 ####[facility]ITAL[facility] [id number] [place] [address] [place] CBC W Auto Differential pane l (Bld)on 12-06-2024 Basophils (Bld) [#/Vol] 0.03 10*3/uL Normal <0.11 [facility] Comment on above: Order Comment: Speci men Type: BLOOD SPECIMENOrdering Facility: [facility] Address: [address] [place] [address] Performed By: #### 5 7021-8 ####[facility] ANGIETHE BELLEVUE HOSPITALLisa [id number] [place] [id number] [place] Basophils/100 WBC (Bld) 0.4 % Normal [facility] Comment on above: Order Comment: Speci men Type: BLOOD SPECIMENOrdering Facility: [facility] Address: [address] [place] [address] Performed By: #### 5 7021-8 ####[facility] ALONSHAYLIA [id number] [place] [address] [place] Differential cell count method Nom (Bld) Auto Normal [facility] Comment on above: Order Comment: Speci men Type: BLOOD SPECIMENOrdering Facility: [facility] Address: [address] [place] [address] Performed By: #### 5 7021-8 ####[facility]ITAL[facility]CLIA [id number] [place] [address] [place] Eosinophils (Bld) [#/Vol] 0.07 10*3/uL Normal <0.46 [facility] Comment on above: Order Comment: Speci men Type: BLOOD SPECIMENOrdering Facility: [facility] Address: [address] [place] [address] Performed By: #### 5 7021-8 ####[facility] CLINICLIA [id number] [place] [address] [place] Eosinophils/100 WBC (Bld) 0.9 % Normal [facility] [facility] Comment on above: Order Comment: Speci men Type: BLOOD SPECIMENOrdering Facility: [facility] Address: [address] [place] [address] Performed By: #### 5 7021-8 ####[facility] CLINICLIA [id number] [place] [address] [place] Erythrocyte distribution width (RBC) [Ratio] 12.4 % Normal 11.5-15.0 [facility] Comment on above: Order Comment: Speci men Type: BLOOD SPECIMENOrdering Facility: [facility] Address: [address] [place] [address] Performed By: #### 5 7021-8 ####[facility]ITALNCLIA [id number] [place] [address] [place] Hematocrit (Bld) [Volume fraction] 36.3 % Normal 36.0-46.0 [facility] Comment on above: Order Comment: Speci men Type: BLOOD SPECIMENOrdering Facility: [facility] Address: [address] [place] [address] Performed By: #### 5 7021-8 ####[facility]ST[facility] HOSPITALLisa [id number] [place] [address] [place] Hemoglobin (Bld) [Mass/Vol] 12.6 g/dL Normal 11.5-15.5 [facility] Comment on above: Order Comment: Speci men Type: BLOOD SPECIMENOrdering Facility: [facility] Address: [address] [place] [address] Performed By: #### 5 7021-8 ####[facility]ICJC [id number] [place] [address] [place] Immature granulocytes (Bld) [#/Vol] 0.04 10*3/uL Normal <0.10 [facility] Comment on above: Order Comment: Speci men Type: BLOOD SPECIMENOrdering Facility: [facility] Address: [address] [place] [address] Performed By: #### 5 7021-8 ####[facility] CLINICLILisa [id number] [place] [address] [place] Immature granulocytes/100 WBC (Bld) 0.5 % Normal [facility] Comment on above: Order Comment: Speci men Type: BLOOD SPECIMENOrdering Facility: [facility] Address: [address] [place] [address] Performed By: #### 5 7021-8 ####[facility] HOSPITALNCLIA [id number] [place] [address] [place] Lymphocytes (Bld) [#/Vol] 1.55 10*3/uL Normal 1.00-4.00 [facility] Comment on above: Order Comment: Speci men Type: BLOOD SPECIMENOrdering Facility: [facility] Address: [address] [place] [address] Performed By: #### 5 7021-8 ####[facility] [id number] [address] STATES [facility] Lymphocytes/100 WBC (Bld) 19.0 % Normal [facility] Comment on above: Order Comment: Speci men Type: BLOOD SPECIMENOrdering Facility: [facility] Address: [address] [place] [address] Performed By: #### 5 7021-8 ####[facility]OSPITALNCMOUNT[facility] [id number] [place] [address] [place] MCH (RBC) [Entitic mass] 30.0 pg Normal 26.0-34.0 [facility] Comment on above: Order Comment: Speci men Type: BLOOD SPECIMENOrdering Facility: [facility] Address: [address] [place] [address] Performed By: #### 5 7021-8 ####[facility] [id number] [address] [place] MCHC (RBC) [Mass/Vol] 34.7 g/dL Normal 30.5-36.0 [facility] Comment on above: Order Comment: Speci men Type: BLOOD SPECIMENOrdering Facility: [facility] Address: [address] [place] [address] Performed By: #### 5 7021-8 ####[facility] [id number] [address] [place] MCV (RBC) [Entitic vol] 86.4 fL Normal 80.0-100.0 [facility] Comment on above: Order Comment: Speci men Type: BLOOD SPECIMENOrdering Facility: [facility] Address: [address] [place] [address] Performed By: #### 5 7021-8 ####[facility] MILLTOWNCLIA [id number] [place] [address] [place] Monocytes (Bld) [#/Vol] 0.33 10*3/uL Normal <0.87 [facility] Comment on above: Order Comment: Speci men Type: BLOOD SPECIMENOrdering Facility: [facility] Address: [address] [place] [address] Performed By: #### 5 7021-8 ####[facility] MILLTOWNCLIA [id number] [place] [address] [place] Monocytes/100 WBC (Bld) 4.0 % Normal [facility] Comment on above: Order Comment: Speci men Type: BLOOD SPECIMENOrdering Facility: [facility] Address: [address] [place] [address] Performed By: #### 5 7021-8 ####[facility] CENTERWNCLIA [id number] [place] [address] [place] Neutrophils (Bld) [#/Vol] 6.13 10*3/uL Normal 1.45-7.50 [facility] Comment on above: Order Comment: Speci men Type: BLOOD SPECIMENOrdering Facility: [facility] Address: [address] [place] [address] Performed By: #### 5 7021-8 ####[facility] MILLTOWNCLIA [id number] [place] [address] [place] Neutrophils/100 WBC (Bld) 75.2 % Normal [facility] Comment on above: Order Comment: Speci men Type: BLOOD SPECIMENOrdering Facility: [facility] Address: [address] [place] [address] Performed By: #### 5 7021-8 ####[facility] MILLTOWNCLIA [id number] [place] [address] [place] Nucleated RBC (Bld) [#/Vol] 10*3/uL Normal <0.01 [facility] Comment on above: Order Comment: Speci men Type: BLOOD SPECIMENOrdering Facility: [facility] Address: [address] [place] [address] Performed By: #### 5 7021-8 ####[facility] HOSPITALIGNACIO [id number] [place] [address] [place] Nucleated RBC/100 WBC (Bld) [Ratio] 0.0 /100 WBC Normal [facility] Comment on above: Order Comment: Speci men Type: BLOOD SPECIMENOrdering Facility: [facility] Address: [address] [place] [address] Performed By: #### 5 7021-8 ####[facility] HOSPITALIGNACIO [id number] [place] [address] [place] Platelet mean volume (Bld) [Entitic vol] 9.2 fL Normal 9.0-12.7 [facility] Comment on above: Order Comment: Speci men Type: BLOOD SPECIMENOrdering Facility: [facility] Address: [address] [place] [address] Performed By: #### 5 7021-8 ####[facility] HOSPITALIGNACIO [id number] [place] [address] [place] Platelets (Bld) [#/Vol] 318 10*3/uL Normal 150-400 [facility] Comment on above: Order Comment: Speci men Type: BLOOD SPECIMENOrdering Facility: [facility] Address: [address] [place] [address] Performed By: #### 5 7021-8 ####[facility] HOSPITALNARDALIA [id number] [place] [address] [place] RBC (Bld) [#/Vol] 4.20 10*6/uL Normal 3.90-5.20 [facility] Comment on above: Order Comment: Speci men Type: BLOOD SPECIMENOrdering Facility: [facility] Address: [address] [place] [address] Performed By: #### 5 7021-8 ####[facility] [id number] [place] [address] [place] WBC (Bld) [#/Vol] 8.15 10*3/uL Normal 3.70-11.00 [facility] Comment on above: Order Comment: Speci men Type: BLOOD SPECIMENOrdering Facility: [facility] Address: [address] [place] [address] Performed By: #### 5 7021-8 ####[facility] [id number] [place] [address] [place] HBV surface Ag Ser Qlon 11-14 HBV surface Ag Ql (S) Negative Normal Negative [facility] Comment on above: Order Comment: Speci men Type: BLOOD SPECIMENOrdering Facility: [facility] Address: [address] [place] [address] Performed By: #### 7 3752-8, 38618-4, 5195-3 ####[facility] LABCLIA [id number] [place] [address] [place] HCV Ab Ser Qlon 12-06-2024 HCV Ab Ql (S) Negative Normal Negative [facility] Comment on above: Order Comment: Speci men Type: BLOOD SPECIMENOrdering Facility: [facility] Address: [address] [place] [address] Result Comment: The result suggests no evidence of active infection with Hepatitis C virus. Should recent infection be suspected, repeat testing may be considered 4-6 weeks after this draw. Performed By: #### 1 6128-1 ####[facility] LABCLIA [id number] [place] [address] [place] HIV 1+2 Ab IA Qlon 5 HIV 1 and 2 Ab IA.rapid Nom (S/P/Bld) Normal [facility] Comment on above: Order Comment: Speci men Type: BLOOD SPECIMENOrdering Facility: [facility] Address: [address] [place] [address] Result Comment: Test not indicated. Performed By: #### 7 3752-8, 44344-7, 5195-3 ####[facility] LABCLIA [id number] [address] OF [place] HIV 1+2 Ab+HIV1 p24 Ag IA Ql Non-Reactive Normal Nonreactive [facility] Comment on above: Order Comment: Speci men Type: BLOOD SPECIMENOrdering Facility: [facility] Address: [address] [place] [address] Performed By: #### 7 3752-8, 37103-7, 5194-12 ####[facility] LABIA [id number] [address] [place] HIV immunoassay testing algorithm interpretation (S/P/Bld) [Interp] Normal [facility] Comment on above: Order Comment: Speci men Type: BLOOD SPECIMENOrdering Facility: [facility] Address: [address] [place] [address] Result Comment: No e vidence of HIV-1 or HIV-2 infection. Should recent infection be suspected, repeat testing may be considered 2-3 weeks after this draw. [place] Rev. Code 3701.243(E): This information has been [...] or diagnoses. Performed By: #### 7 3752-8, 79948-6, 5195-3 ####[facility] LABCLIA [id number] [address] [place] HbA1c (Bld)on 12-06-2024 Average glucose Estimated from glycated hemoglobin (Bld) [Mass/Vol] 77 mg/dL Normal [facility] Comment on above: Order Comment: Tom avendaño Type: BLOOD SPECIMENOrdering Facility: [facility] Address: [address] [place] [address] Result Comment: eAG: (Estimated average glucose) is a calculated value from HgbA1c and is business process representative of the average blood glucose level in the last 2-3 month period. Performed By: #### 5 5454-3 ####[facility] LABCLIA [id number] [address] [place] HbA1c (Bld) [Mass fraction] 4.3 % Normal 4.3-5.6 [facility] Comment on above: Order Comment: Tom avendaño Type: BLOOD SPECIMENOrdering Facility: [facility] Address: [address] [place] [address] Result Comment: Amer ican Diabetes Association guidelines indicate that patients with HgbA1c in the range 5.7-6.4% are at increased risk for development of diabetes, and intervention by lifestyle modification may be beneficial. HgbA1c greater or equal to 6.5% is considered diagnostic of diabetes. Performed By: #### 5 5454-3 ####[facility] LABCLIA [id number] [place] [address] [place] [id number] PLUSon 12-06-2024 Cell-free DNA./Cell-free DNA.total Dosage of chromosome-specific cfDNA (cfDNA) [Molar fraction] 26% Normal [facility] Comment on above: Order Comment: Sabasi jarocho Type: BLOOD SPECIMENOrdering Facility: [facility] Address: [address] [place] [address] Performed By: #### M AT21 ####[facility] [facility] LABCLIA [id number] [facility] [place] [address] Chr 13+18+21+X+Y aneuploidy Dosage of chromosome-specific cfDNA Ql (cfDNA) Negative Normal [facility] Comment on above: Order Comment: Speci men Type: BLOOD SPECIMENOrdering Facility: [facility] Address: [address] [place] [address] Performed By: #### M AT21 ####[facility] LABCLIA [id number] [place] [address] Chr 21 trisomy Dosage of chromosome-specific cfDNA Ql (cfDNA) Negative Normal [facility] Comment on above: Order Comment: Speci men Type: BLOOD SPECIMENOrdering Facility: [facility] Address: [address] [place] [address] Performed By: #### M AT21 ####[facility] LABCLIA [id number] [place] [address] Chr X and Y aneuploidy risk Sequencing Ql (cfDNA) [Interp] Not detected Normal [facility] Comment on above: Order Comment: Speci men Type: BLOOD SPECIMENOrdering Facility: [facility] Address: [address] [place] [address] Result Comment: Not Detected Not Detected Performed By: #### M AT21 ####[facility] LABCLIA [id number] [place] [address] Citation Alen (Reference lab test) Comment Normal [facility] Comment on above: Order Comment: Speci men Type: BLOOD SPECIMENOrdering Facility: [facility] Address: [address] [place] [address] Result Comment: 1. P sloan RALPH, et al. Rosy Med. 2012;14(3):296-305. 2. Niraj OVALLES et al. Prenat Diag. 2013;33(6):591-597. 3. Rony C, et al. Clin Chem. 2015 Apr;61(4):608-616. 4. Leticia RALPH et al. [facility]y Med. 2011;13(11):913-920. 5. ACOG/SMFM Practice Bulletin No. 226, Jul 2020. Performed By: #### M AT21 ####[facility] LABCLIA [id number] [place] [address] Gestational age Estimated from conception date [place] Normal [facility] Comment on above: Order Comment: Speci men Type: BLOOD SPECIMENOrdering Facility: [facility] Address: [address] [place] [address] Performed By: #### M AT21 ####[facility] LABCLIA [id number] [place] [address] GESTATIONALAGE AGE > OR = 9W Yes Normal [facility] Comment on above: Order Comment: Speci men Type: BLOOD SPECIMENOrdering Facility: [facility] Address: [address] [place] [address] Performed By: #### M AT21 ####[facility] LABCLIA [id number] [place] [address] Laboratory comment Alen (Report) Comment Normal [facility] Comment on above: Order Comment: Speci men Type: BLOOD SPECIMENOrdering Facility: [facility] Address: [address] [place] [address] Result Comment: The MaterniT(R) 21 PLUS laboratory-developed test (LDT) analyzes circulating cell-free DNA from a maternal blood sample. This test is used for screening purposes and not diagnostic. Clinical correlation is recommended. Validation data on twin pregnancies is limited and the ability of this test to detect aneuploidy in higher multiple gestations has not yet been validated. Performed By: #### M AT21 ####[facility] LABCLIA [id number] [place] [address] director of pupil personnel program name Nom (Provider) Comment Normal [facility] Comment on above: Order Comment: Speci men Type: BLOOD SPECIMENOrdering Facility: [facility] Address: [address] [place] [address] Result Comment: This specimen showed an expected representation of chromosome 21, 18 and 13 material. Clinical correlation is suggested. Comment Vinh Lopez MD, PhD, Director, [employer] Performed By: #### M AT21 ####[employer] [facility] LABCLIA [id number] [place] [address] LIMITATIONS OF THE TEST Comment Normal [facility] Comment on above: Order Comment: Speci men Type: BLOOD SPECIMENOrdering Facility: [facility] Address: [address], [place] [address] Result Comment: Yony ashley the results of [...] and Fragmin(R)). Performed By: #### M AT21 ####[employer] LABCLIA [id number] [place] [address] Monosomy X risk Dosage of chromosome-specific cfDNA Ql (Plasma cell-free+WBC DNA) [Interp] Not detected Normal [facility] Comment on above: Order Comment: Speci men Type: BLOOD SPECIMENOrdering Facility: [facility] Address: [address] [place] [address] Performed By: #### M AT21 ####[facility] LABCLIA [id number] [place] [address] NEGATIVE PREDICTIVE VALUE Note Normal [facility] Comment on above: Order Comment: Tom men Type: BLOOD SPECIMENOrdering Facility: [facility] Address: [address] [place] [address] Result Comment: The Negative Predictive Value (NPV) for trisomy 21, 18, and 13 is greater than 99%. The NPV for SCA and ESS cannot be calculated as SCA and ESS are only reported when an abnormality is detected. Performed By: #### M AT21 ####[facility] LABCLIA [id number] [place] [address] PERFORMANCE CHARACTERISTICS Note Normal [facility] Comment on above: Order Comment: Tom jarocho Type: BLOOD SPECIMENOrdering Facility: [facility] Address: [address] [place] [address] Result Comment: ! Sex ! Accuracy: 99.4% [...] gestation only. Performed By: #### M AT21 ####[facility] [id number] [place] [id number] POSITIVE PREDICTIVE VALUE N/A Normal [facility] Comment on above: Order Comment: Speci men Type: BLOOD SPECIMENOrdering Facility: [facility] Address: [address] [place] [address] Performed By: #### M AT21 ####[facility] LABCLIA [id number] [place] [id number] Reference Lab Test Method Comment Normal [facility] Comment on above: Order Comment: Speci men Type: BLOOD SPECIMENOrdering Facility: [facility] Address: [address] [place] [address] Result Comment: See Notes Circulating cell-free DNA [...] and 22. Performed By: #### M AT21 ####[facility] LABCLIA [id number] [place] [id number] Service comment (Unsp spec) [Interp] Comment Normal [facility] Comment on above: Order Comment: Speci men Type: BLOOD SPECIMENOrdering Facility: [facility] Address: [address] [place] [address] Result Comment: See Notes [employer]. is a subsidiary of [employer], using the brand [employer]. This test was developed and its performance characteristics determined by [employer]. It has not been cleared or approved by the Food and Drug Administration. This laboratory is certified under the Clinical Laboratory Improvement Amendments (CLIA) as qualified to perform high complexity clinical laboratory testing and accredited by the College [employer] (CAP). If there is future clinical need for adding MaterniT GENOME testing, this specimen will be available until term. [place] samples will not be retained beyond 60 days. [place] patients will have to send a new sample for re-sequencing ([facility] Test Code: [id number]). Performed By: #### M AT21 ####[facility] [facility] LABCLIA [id number] [place] [address] Sex Dosage of chromosome-specific cfDNA Nom (cfDNA) Comment [facility] Comment on above: Order Comment: Speci men Type: BLOOD SPECIMENOrdering Facility: [facility] Address: [address] [place] [address] Result Comment: Cons istent with Female Performed By: #### M AT21 ####[facility] LABCLIA [id number] [place] [address] Test performance information Alen (Unsp spec) Comment [facility] Comment on above: Order Comment: Speci men Type: BLOOD SPECIMENOrdering Facility: [facility] Address: [address] [place] [address] Result Comment: The performance characteristics of the MaterniT(R) 21 PLUS laboratory-developed test (LDT) have been determined in a clinical validation study with women at increased risk for chromosomal aneuploidy.[1-4] Performed By: #### M AT21 ####[facility] LABCLIA [id number] [place] [address] Trisomy 13 risk Dosage of chromosome-specific cfDNA Ql (cfDNA) [Interp] Negative Normal [facility] Comment on above: Order Comment: Speci men Type: BLOOD SPECIMENOrdering Facility: [facility] Address: [address] [place] [address] Performed By: #### M AT21 ####[facility] LABCLIA [id number] [place] [address] Trisomy 18 risk Dosage of chromosome-specific cfDNA Ql (Plasma cell-free+WBC DNA) [Interp] Negative Normal [facility] Comment on above: Order Comment: Speci men Type: BLOOD SPECIMENOrdering Facility: [facility] Address: [address] [place] [address] Performed By: #### M AT21 ####[facility] LABCLIA [id number] [facility] [place] [address] RUBELLA IGG ANTIBODYon 12-06 RUBELLA IGG AB, QUAL Negative Abnormal Positive [facility] Comment on above: Order Comment: Speci men Type: BLOOD SPECIMENOrdering Facility: [facility] Address: [address] [place] [address] Result Comment: The result suggests no history of Rubella vaccination or exposure to Rubella virus, however, some individuals with past history of Rubella vaccination may test negative using this test as immunity to Rubella virus wanes over time after vaccination. Please correlate with vaccination history if applicable. Performed By: #### R UBIGG ####[facility] LABCLIA [id number] [place] [address] [place] Reagin and Treponema pallidu m IgG and IgM [Interp]on 12-06-2024 T. pallidum IgG+IgM IA Ql (S) Non-Reactive Normal Nonreactive [facility] Comment on above: Order Comment: Speci jarocho Type: BLOOD SPECIMENOrdering Facility: [facility] Address: [address] [place] [address] Performed By: #### 7 3752-8, 55196-9, 5194-3 ####[facility] LABCLIA [id number] [place] [address] [place] Reagin+T pallidum IgG+IgM Se rPl-Impon 12-06-2024 Reagin and Treponema pallidum IgG and IgM [Interp] Cannot exclude recent Treponemal infection if specimen collected within 7-10 days after appearance of suspect lesions or 2-3 weeks after an exposure. Clinical correlation is required. Normal [facility] Comment on above: Order Comment: Tom [facility] Type: BLOOD SPECIMENOrdering Facility: [facility] Address: [address] [place] [address] Performed By: #### 7 3752-8, 58538-7, 5195-3 ####[facility] LABCLIA [id number] [place] [address] [place] TYPE + SCREEN PRENATALon ABO O Normal [facility] Comment on above: Order Comment: Speci men Type: BLOOD SPECIMENOrdering Facility: [facility] Address: [address] [place] [address] Performed By: #### T SPN ####[facility] MA[facility] BLOOD BANKCLIA [id number] [place] [address] [place] Rh Nom (Bld) Positive Normal [facility] Comment on above: Order Comment: Speci men Type: BLOOD SPECIMENOrdering Facility: [facility] Address: [address] [place] [address] Performed By: #### T SPN ####[facility] MAIN BLOOD BANKCLIA [id number] [place] [address] [place] TYPE AND SCREEN EXPIRATION 12/09/2024 23:59 Normal [facility] Comment on above: Order Comment: Speci men Type: BLOOD SPECIMENOrdering Facility: [facility] Address: [address] [place] [address] Performed By: #### T SPN ####[facility] MAIN BLOOD BANKCLIA [id number] [place] [address] [place] Emergency Department Summary on 06-18-2024 Emergency Department Summary [facility] Medical Records Department [address] [place] [id number] Emergency Department Summary 06/18/24 MR#: [id number] Acct: [id number] Name: DAMON GARZA Rep #: [id number] : 2005 18 From: Nurys Allan DO [...] eye. Patient encouraged to follow-up with her operations specialists on Friday if she still having eye [...] Days if not improving Minda Haley NP, METAL ANNEALER-C [Primary Care Provider] - Activity Restrictions/Addition al Instructions: There does not appear to be a contact stuck in your eye. I recommend using lubricating eyedrops such as Systane brand. Do not put contacts back in your eyes and wear glasses intake and either follow-up with your operations specialists or that the mall just through [facility] (you been given the contact information). Print Language: Ethiopian Disposition Disposition: Home, Self Care What to do if you have Problems For any increased pain, shortness of breath, bleeding, nausea or vomiting, chest pain, or any unexpected problems, contact your Primary Care Provider. Call [facility] ([phone]) or report to the closest Emergency Room. Call 911 if necessary. 06/18/24 2335 Cosigner Signature (if applicable): (more content not included)... Normal [facility] Emergency Department Summary on 05-30-2024 Emergency Department Summary [facility] Medical Records Department [address] [place] [address] Emergency Department Summary 05/30/24 MR#: [id number] Acct: [id number] Name: BHAVANIDAMON Rep #: [id number] : 2005 18 From: Del JAMESC PCP: JOSÉ MIGUEL Ch Status:[facility] ER Location: ED Patient was seen and [...] ideation, homici (more content not included)... Normal [facility] Progress Noteon 01-28-2023 Rover Tender Authentication Interface Message Text Patient ID: Damon [...] 61.2 kg, last menstrual period 01/13/2023. Normal [facility] Progress Noteon 08-07-2022 Rover Tender Authentication Interface Message Text Patient ID: Damon [...] 59.5 kg, last menstrual period 07/08/2022. Normal [facility] Vital Signs Date Time Vital Sign Value Performing Clinician Ferny de souza 04-08-2025 16:34-0400 Body mass index (BMI) [Ratio] 25.56 kg/m2 Kate Castanon APRN.CNM Work Phone: [facility] 04-08-2025 16:34-0400 Body weight 67.13 kg Kate Castanon APRN.CNM Work Phone: [facility] 04-08-2025 16:34-0400 Diastolic blood pressure 74 mm[Hg] Kate Castanon APRN.CNM Work Phone: [facility] 04-08-2025 16:34-0400 Systolic blood pressure 122 mm[Hg] Kate Castanon APRN.CNM Work Phone: [facility] 03-30-2025 09:49-0400 Body mass index (BMI) [Ratio] 25.39 kg/m2 Wanda Gardiner APRN.CNM Work Phone: [facility] 03-30-2025 09:49-0400 Body weight 66.68 kg Wanda Gardiner APRN.CNM Work Phone: [facility] 03-30-2025 09:49-0400 Diastolic blood pressure 70 mm[Hg] Wanda Gardiner APRN.CNKelton Work Phone: [facility] 03-30-2025 09:49-0400 Systolic blood pressure 110 mm[Hg] Wanda Gardiner APRN.CNM Work Phone: [facility] 03-22-2025 13:27-0400 Diastolic blood pressure 79 mm[Hg] i [facility] 03-22-2025 13:27-0400 Systolic blood pressure 120 mm[Hg] [facility] 03-21-2025 08:06-0400 Body mass index (BMI) [Ratio] 24.7 kg/m2 Mumtaz Hatyrone SPA SUPERVISOR.MOSHGIACH Work Phone: [facility] 03-21-2025 08:06-0400 Body weight 64.86 kg Mumtaz Hatyrone SPA SUPERVISOR.MOSHGIACH Work Phone: [facility] 03-21-2025 08:06-0400 Diastolic blood pressure 68 mm[Hg] Mumtaz Haury SPA SUPERVISOR.MOSHGIACH Work Phone: [facility] 03-21-2025 08:06-0400 Systolic blood pressure 110 mm[Hg] Mumtaz Haury SPA SUPERVISOR.MOSHGIACH Work Phone: [facility] 03-16-2025 13:21-0400 Body mass index (BMI) [Ratio] 25.11 kg/m2 Kate Plotts SPA SUPERVISOR.CNM Work Phone: [facility] 03-16-2025 13:21-0400 Body weight 65.95 kg Kate Plotts SPA SUPERVISOR.CNM Work Phone: [facility] 03-16-2025 13:21-0400 Diastolic blood pressure 60 mm[Hg] Kate Plotts SPA SUPERVISOR.CNM Work Phone: [facility] 03-16-2025 13:21-0400 Systolic blood pressure 98 mm[Hg] Kate Plotts SPA SUPERVISOR.CNM Work Phone: [facility] 01-25-2025 10:20-0400 Body mass index (BMI) [Ratio] 24.01 kg/m2 Wanda Gardiner SPA SUPERVISOR.CNM Work Phone: [facility] 01-25-2025 10:20-0400 Body weight 63.05 kg Wanda Gardiner SPA SUPERVISOR.CNM Work Phone: [facility] 01-25-2025 10:20-0400 Diastolic blood pressure 64 mm[Hg] Wanda Gardiner SPA SUPERVISOR.CNM Work Phone: [facility] 01-25-2025 10:20-0400 Systolic blood pressure 98 mm[Hg] Wanda Gardiner SPA SUPERVISOR.CNM Work Phone: [facility] 01-11-2025 09:57-0400 Body mass index (BMI) [Ratio] 23.63 kg/m2 Destini Langley MD Work Phone: [facility] 01-11-2025 09:57-0400 Body weight 62.05 kg Destini Langley MD Work Phone: [facility] 01-11-2025 09:57-0400 Diastolic blood pressure 70 mm[Hg] Destini Langley MD Work Phone: [facility] 01-11-2025 09:57-0400 Systolic blood pressure 110 mm[Hg] Destini Langley MD Work Phone: [facility] 12-06-2024 12:54-0500 Body height 162.1 cm Kate Plotts SPA SUPERVISOR.CNM Work Phone: [facility] 12-06-2024 12:54-0500 Body mass index (BMI) [Ratio] 21.76 kg/m2 Kate Plotts SPA SUPERVISOR.CNM Work Phone: [facility] 12-06-2024 12:54-0500 Body weight 57.15 kg Kate Plotts SPA SUPERVISOR.CNM Work Phone: [facility] 12-06-2024 12:54-0500 Diastolic blood pressure 60 mm[Hg] Kate Plotts SPA SUPERVISOR.CNM Work Phone: [facility] 12-06-2024 12:54-0500 Systolic blood pressure 108 mm[Hg] Kate Plotts SPA SUPERVISOR.CNM Work Phone: [facility] Encounters Encounter Date Encounter Type Care Provider Facility Start: 04-08-2025 End: 04-08-2025 Patient encounter procedure Kate Castanon SPA SUPERVISOR.CNM Work Phone: OB/Gynecology Comment on above: Supervision of high risk in third trimester (HCC) (Primary Dx); Uterine size-date discrepancy, third trimester (HCC); Group beta Strep positive; Muscular ventricular septal defect (HCC); 38 weeks gestation of (HCC) Start: 04-04-2025 End: 04-04-2025 [facility] Start: 04-04-2025 End: 04-04-2025 [facility] [place] Comment on above: Population Health Na vigation Outreach ( to PCP/OB/) Start: 03-30-2025 End: 03-30-2025 ambulatory WANDA GARDINER Facility:[facility] Start: 03-30-2025 End: 03-30-2025 Patient encounter procedure Wanda Gardiner APRN.CNM Work Phone: OB/Gynecology Comment on above: Supervision of high risk in third trimester (HCC) (Primary Dx); 37 weeks gestation of (HCC); Uterine size-date discrepancy, third trimester (HCC); Late care (HCC); Group beta Strep positive; Muscular ventricular septal defect (HCC) Start: 03-22-2025 End: 03-22-2025 Patient encounter procedure Whi Tech 2 Ruffling Machine Operator [facility] Comment on above: Supervision of high risk in third trimester (HCC); 36 weeks gestation of (HCC); Muscular ventricular septal defect (HCC); Uterine size-date discrepancy, third trimester (HCC) Start: 03-22-2025 End: 03-22-2025 ambulatory MUMTAZ TYRONE Facility:[facility] Start: 03-21-2025 End: 03-21-2025 Patient encounter procedure Mumtaz Morales SPA SUPERVISOR.MOSHGIACH Work Phone: OB/Gynecology Comment on above: Supervision of high risk in third trimester (HCC) (Primary Dx); 36 weeks gestation of (HCC); Muscular ventricular septal defect (HCC); Uterine size-date discrepancy, third trimester (HCC) Start: 03-21-2025 End: 03-21-2025 ambulatory MUMTAZ MORALES Facility:[facility] Start: 03-16-2025 End: 03-16-2025 Patient encounter procedure Kate Castanon RAINER.DANILO Work Phone: OB/Gynecology Comment on above: 35 weeks gestation o f (HCC) (Primary Dx); Supervision of high risk in third trimester (HCC); Encounter for supervision of high risk due to anomaly, second trimester (HCC); Muscular ventricular septal defect (HCC) Start: 03-16-2025 End: 03-16-2025 ambulatory KATE CASTANON Facility:[facility] Start: 03-08-2025 End: 03-08-2025 Telephone encounter Nurse Ruffling Machine Operator Narendra West Work Phone: Obstetrics/Gynecology Comment on above: PRAF Start: 03-02-2025 End: 03-02-2025 [facility] Start: 03-01-2025 End: 03-01-2025 [facility] GINGER ARLEEN Facility:[facility] Start: 01-27-2025 End: 03-29-2025 Follow-up encounter Destini [...] Start: 01-25-2025 End: 01-25-2025 ambulatory WANDA VALERIA Facility:[facility] Start: 01-13-2025 End: 01-13-2025 Telephone encounter Nurse Ruffling Machine Operator Narendra West Work Phone: Obstetrics/Gynecology Comment on above: PRAF Start: 01-11-2025 End: 01-11-2025 ambulatory DESTINI LANGLEY Facility:[facility] Start: 01-11-2025 End: 01-11-2025 Patient encounter procedure Destini Langley MD Work Phone: OB/Gynecology Comment on above: High risk teen pregn katelyn in second trimester (HCC) (Primary Dx); Screening for diabetes mellitus; Suspected anomaly, antepartum, single or unspecified fetus (HCC) Start: 12-14-2024 End: 12-14-2024 ambulatory KATE CASTANON Facility:[facility] Start: 12-14-2024 End: 12-14-2024 Patient encounter procedure Whi Tech 1 Ruffling Machine Operator Mfm [facility] Comment on above: Encounter for routin e screening for malformation using ultrasonics (Primary Dx); Ventricular septal defect (VSD) of fetus in [place] , antepartum; 22 weeks gestation of Start: 12-11-2024 End: 12-11-2024 Emergency department patient visit Nurys Marquescadwell Facility:[facility] Start: 12-07-2024 End: 12-07-2024 Telephone encounter Natalya Mendoza RN Maternal Medicine Comment on above: Shake Packer - O ther (PRAF) Start: 12-06-2024 End: 12-06-2024 ambulatory KATE CASTANON Facility:[facility] Start: 12-06-2024 End: 12-06-2024 Patient encounter procedure Kate Castanon SPA SUPERVISOR.CNM Work Phone: OB/Gynecology Comment on above: with uncer tain dates, antepartum (Primary Dx); 21 weeks gestation of ; Encounter for supervision of high risk due to anomaly, second trimester; High risk teen in second trimester; Late care Start: 06-18-2024 End: 06-18-2024 Emergency department patient visit Minda Haley METAL ANNEALER Facility:[facility] Start: 05-30-2024 End: 05-30-2024 Emergency department patient visit Minda Haley METAL ANNEALER Facility:[facility] Start: 01-28-2023 End: 01-28-2023 ambulatory CAITLYN BRUNNER [facility] Start: 08-07-2022 End: 08-07-2022 ambulatory RADHA BARAJAS [facility] Procedures Date Procedure Procedure Detail Performing Clinician Start: 04-08-2025 Urnls dip stick/tabl et rgnt non-auto w/o micrscp Kate Castanon SPA SUPERVISOR.CNM Work Phone: Start: 03-30-2025 Urnls dip stick/tabl et rgnt non-auto w/o micrscp Sunshine Encarnacion MD Work Phone: Start: 03-22-2025 Us preg uterus after 1st trimest / gestation Mumtaz Morales SPA SUPERVISOR.MOSHGIACH Work Phone: Start: 03-21-2025 Urnls dip stick/tabl et rgnt non-auto w/o micrscp Mumtaz Morales SPA SUPERVISOR.MOSHGIACH Work Phone: Start: 03-16-2025 Urnls dip stick/tabl et rgnt non-auto w/o micrscp Kate Castanon SPA SUPERVISOR.CNM Work Phone: Start: 12-14-2024 Us preg uterus after 1st trimest / gestation Kate Castanon SPA SUPERVISOR.CNM Work Phone: Start: 12-06-2024 Antibody screen WANDA GARDINER Comment on above: Order Comment: Speci men Type: BLOOD SPECIMENOrdering Facility: [facility] Address: [address] [place] [address] Performed By: #### T SPN ####CC [facility] BLOOD BANKIA [id number] [address] [place] Plan of Treatment Date Care Activity Detail Author Start: 01-25-2035 Urine microalbumin profile [facility] Start: 12-06-2025 GC (Gonorrhea) Scree manuel () GC (Gonorrhea) Screening () [facility] Start: 12-06-2025 Screening for Chlamy gabi trachomatis Chlamydia Screening () [facility] Start: 06-13-2025 Influenza vaccination Influenz a Vaccine (Season Ended) [facility] Start: 04-13-2025 End: 04-13-2025 Patient encounter procedure 04/13/2025 11:30 AM EDT Routine Office Visit OB/Gynecology [address] [place] [address] Wanda Gardiner APRN.CN [address] [place] [address] OB OB/Gynecology Comment on above: OB Start: 04-08-2025 End: 04-08-2025 Patient encounter procedure 04/08/2025 4:30 PM EDT Routine Office Visit OB/Gynecology [address] [place] [address] Kate Castanon APRN.CN [address] [place] [address] OB OB/Gynecology Comment on above: OB Start: 03-30-2025 End: 03-30-2025 Patient encounter procedure 03/30/2025 9:40 AM EDT Routine Office Visit OB/Gynecology [address] [place] [address] Sunshine Goodman MD [address] [place] [address] OB OB/Gynecology Comment on above: OB Start: 03-22-2025 End: 03-22-2025 Patient encounter procedure 03/22/2025 1:30 PM EDT Routine Office Visit Maternal Medicine [address] [place] [address] Growth Maternal Medicine Comment on above: Growth Start: 03-21-2025 End: 03-21-2026 OBSTETRIC ULTRASOUND WHI OBSTETRIC ULTRASOUND WHI Anc Imaging Routine Supervision of high risk in third trimester (HCC) 36 weeks gestation of (HCC) Muscular ventricular septal defect (HCC) Uterine size-date discrepancy, third trimester (HCC) Expected: 03/21/2025, Expires: 03/21/2026 [facility] Work Phone: Comment on above: Expected: 03/21/2025 , Expires: 03/21/2026 Start: 03-21-2025 End: 03-21-2025 Patient encounter procedure 03/21/2025 8:00 AM EDT Routine Office Visit OB/Gynecology [address] [place] [address] Mumtaz Morales, SPA SUPERVISOR.MOSHGIACH [address] [place] [address] ob OB/Gynecology Comment on above: ob Start: 03-16-2025 End: 03-16-2025 Patient encounter procedure 03/16/2025 1:15 PM EDT Routine Office Visit OB/Gynecology [address] [place] [address] Kate Castanon SPA SUPERVISOR.CNM [address] [place] [address] OB OB/Gynecology Comment on above: OB Start: 02-08-2025 End: 02-08-2025 ambulatory 02/08/2025 9:30 AM EDT [place] [address] [place] [address] Tiffany Gonzalez MD [address] [place], [place] [id number] Echo, Single , 26 Weeks PEDS CARD [facility] Comment on above: Echo, Single B irth, 26 Weeks Start: 02-08-2025 End: 02-08-2025 Patient encounter procedure 02/08/2025 9:30 AM EDT Office Visit PEDS CARD [facility] [address] [place] [address] muscular VSD Echo, Single , 26 Weeks PEDS CARD [facility] Comment on above: muscular VSD E cho, Single , 26 Weeks Start: 02-07-2025 End: 02-07-2025 Patient encounter procedure 02/07/2025 8:30 AM EDT Routine Office Visit OB/Gynecology [address] [place] [address] Meenakshi Jensen MD [address] [place], [place] [id number] OB OB/Gynecology Comment on above: OB Start: 01-25-2025 End: 04-26-2025 ANEMIA REFLEX PANEL ANEMIA REFLEX PANEL Lab Routine High risk teen in second trimester Expected: 01/25/2025 (Approximate), Expires: 04/26/2025 [facility] Comment on above: Expected: 01/25/2025 (Approximate), Expires: 04/26/2025 Start: 01-25-2025 End: 01-11-2026 GESTATIONAL GLUCOSE SCREEN, 1-HOUR, 50 GRAM, NON-FASTING GESTATIONAL GLUCOSE SCREEN, 1-HOUR, 50 GRAM, NON-FASTING Lab Routine Screening for diabetes mellitus Expected: 01/25/2025 (Approximate), Expires: 01/11/2026 [facility] Work Phone: Comment on above: Expected: 01/25/2025 (Approximate), Expires: 01/11/2026 Start: 01-25-2025 End: 01-11-2026 SYPHILIS TREPONEMAL W/REFLEX SYPHILIS TREPONEMAL W/REFLEX Lab Routine High risk teen in second trimester Expected: 01/25/2025 (Approximate), Expires: 01/11/2026 [facility] Comment on above: Expected: 01/25/2025 (Approximate), Expires: 01/11/2026 Start: 01-25-2025 End: 01-25-2025 Patient encounter procedure 01/25/2025 10:30 AM EDT Routine Office Visit OB/Gynecology [address] [place] [address] Wanda Gardiner APRN.CN [address] [place] [address] Glucose Test /OB OB/Gynecology Comment on above: Glucose Test /OB Start: 01-25-2025 End: 01-25-2025 ambulatory 01/25/2025 10:15 AM EDT Results Only Ang[facility] [address] [place] [address] Glucose Test [facility] Comment on above: Glucose Test Start: 01-17-2025 End: 01-17-2025 ambulatory 01/17/2025 9:30 AM EDT Procedure Pediatric Cardiology [address] [place] [id number] Niharika Ingram MD [address] [place] [address] Echo, Single , 26 Weeks Pediatric Cardiology Comment on above: Echo, Single B irth, 26 Weeks Start: 01-17-2025 End: 01-17-2025 Patient encounter procedure 01/17/2025 9:30 AM EDT Office Visit Pediatric Cardiology [address] [place] [id number] Echo, Single , 26 Weeks Pediatric Cardiology Comment on above: Echo, Single B irth, 26 Weeks Start: 01-05-2025 End: 01-05-2025 Patient encounter procedure 01/05/2025 10:20 AM EDT Routine Office Visit OB/Gynecology [address] [place] [address] Rachele Rao MD [address] [place] [address] NEW OB LMP 07/11/24 OB/Gynecology Comment on above: NEW OB LMP 07/11/24 Start: 12-14-2024 End: 12-14-2024 Patient encounter procedure 12/14/2024 3:00 PM EST Routine Office Visit Maternal Medicine [address] [place] [address] Anatomy Maternal Medicine Comment on above: Anatomy Start: 12-06-2024 End: 03-07-2025 ANEMIA REFLEX PANEL [facility] Comment on above: Expected: 12/06/2024 , Expires: 03/07/2025 Start: 12-06-2024 End: 03-07-2025 Chromosome 21 trisomy [Presence] in Blood or Tissue by Cytogenetics [facility] Comment on above: Expected: 12/06/2024 , Expires: 03/07/2025 Start: 12-06-2024 End: 03-07-2025 Hemoglobin A1c in Blood [facility] Comment on above: Expected: 12/06/2024 , Expires: 03/07/2025 Start: 12-06-2024 End: 03-07-2025 Hepatitis B virus surface Ag [Presence] in Serum [facility] Comment on above: Expected: 12/06/2024 , Expires: 03/07/2025 Start: 12-06-2024 End: 03-07-2025 Hepatitis C virus Ab [Presence] in Serum [facility] Comment on above: Expected: 12/06/2024 , Expires: 03/07/2025 Start: 12-06-2024 End: 03-07-2025 HIV 1+2 Ab [Presence] in Serum or Plasma by Immunoassay [facility] Comment on above: Expected: 12/06/2024 , Expires: 03/07/2025 Start: 12-06-2024 End: 12-06-2025 OBSTETRIC ULTRASOUND WHI OBSTETRIC ULTRASOUND WHI Anc Imaging Routine with uncertain dates, antepartum Expected: 12/06/2024, Expires: 12/06/2025 [facility] Work Phone: Comment on above: Expected: 12/06/2024 , Expires: 12/06/2025 Start: 12-06-2024 End: 03-07-2025 RUBELLA IGG ANTIBODY [facility] Comment on above: Expected: 12/06/2024 , Expires: 03/07/2025 Start: 12-06-2024 End: 03-07-2025 SYPHILIS TREPONEMAL W/REFLEX [facility] Comment on above: Expected: 12/06/2024 , Expires: 03/07/2025 Start: 12-06-2024 End: 03-07-2025 TYPE + SCREEN [facility] Comment on above: Expected: 12/06/2024 , Expires: 03/07/2025 Start: 2024 Hepatitis B Vaccine (1 of 3 - 19+ 3-dose series) Hepatitis B Vaccine (1 of 3 - 19+ 3-dose series) [facility] Start: 2024 Urine microalbumin profile DTaP,Tdap,Td Vaccine (1 - Tdap) [facility] Start: 06-13-2024 Covid-19 Vaccine () Covid-19 Vaccine () [facility] Start: 06-13-2024 Covid-19 Vaccine ( season) Covid-19 Vaccine () [facility] Start: 06-13-2024 Influenza vaccination Influenza Vacc ine (#1) [facility] Start: 2023 Anxiety Screening Anxiety Screening [facility] Start: 2023 Depression Screening Depression Scre ening [facility] Start: 2023 GC (Gonorrhea) Scree manuel (1824) GC (Gonorrhea) Screening () [facility] Start: 2023 Hepatitis C screening Hepatitis C Sc reening [facility] Start: 2023 HIV screening HIV Screening [facility] Start: 2023 Screening for Chlamy gabi trachomatis Chlamydia Screening () [facility] Start: 2021 Meningococcal B Vacc ine (1 of 2 - Standard) Meningococcal B Vaccine (1 of 2 - Standard) [facility] Start: 2020 HPV Vaccine (1 - 3-d ose series) HPV Vaccine (1 - 3-dose series) [facility] Start: 2019 Peds To Adult Transi tion Annual Assessment Peds To Adult Transition Annual Assessment [facility] Start: 2017 Peds To Adult Transi tion Initial Discussion Peds To Adult Transition Initial Discussion [facility] Bacteria identified in Urine by Culture BACTERIAL CULTURE, URINE Microbiology Routine with uncertain dates, antepartum 12/06/2024 1:35 PM EST [facility] Chlamydia trachomatis+Neisseria gonorrhoeae DNA [Presence] in Unspecified specimen by KATELIN with probe detection GONORRHEA/CHLAMYDIA NAAT Lab Routine with uncertain dates, antepartum 12/06/2024 1:35 PM EST [facility] End: 12-14-2025 ECHO ECHO Cardiology Routine Ventricular septal defect (VSD) of fetus in [place] , antepartum Encounter for routine screening for malformation using ultrasonics 22 weeks gestation of 1 Occurrences starting 12/14/2024 until 12/14/2025 [facility] Work Phone: Comment on above: 1 Occurrences starti ng 12/14/2024 until 12/14/2025 ROUTINE, GR OUP B STREPTOCOCCUS BY PCR ROUTINE, GROUP B STREPTOCOCCUS BY PCR Microbiology Routine 36 weeks gestation of ([facility]) 03/21/2025 8:22 AM EDT [facility] Immunizations Immunization Date Immunization Notes Care Provider Myke oviedo 01-25-2025 tetanus toxoid, redu dasha diphtheria toxoid, and acellular pertussis vaccine, adsorbed Wanda Gardiner RAINER.CNM Work Phone: [facility] 06-24-2013 influenza virus vacc ine, unspecified formulation Nurse Wayne Work Phone: [facility] Payers Date Payer Category Payer Medicaid [id number] 2024 Unknown [id number] 2024 Self-pay 1975 Unknown [id number] [id number]. [id number] 1975 Unknown [id number] 2.16. [id number] Unknown [id number] Unknown [id number] [id number] Unknown [id number] [id number] Unknown [id number] [id number] Social History Date Type Detail Facility [facility]: [facility] Start: 12-03-2024 Tobacco use and exposure Smoke less tobacco non-user [facility] Start: 12-06-2024 End: 03-21-2025 Alcoholic beverage intake Lifetime non-drinker (finding) [facility] Start: 12-06-2024 End: 03-30-2025 History of Social function [facility] Start: 12-06-2024 End: 03-30-2025 Tobacco use panel [facility] National Score (1-10 0), lower number is lower risk 63 [facility] Start: 12-03-2024 Education 11 [facility] Start: 07-25-2024 [facility] Start: 2005 Sex assigned at Female C [facility] Start: 12-03-2024 Gender identity Identifies as female gender (finding) [facility] Start: 12-03-2024 Sexual orientation Heterosexual (sharyn nguyen) [facility] Clinical Notes 12-03-2024 to 04-08-2025 Quick Notes [...] or sooner if needed Kate Castanon APRN.CNM [facility] 04-08-2025 Miscellaneous Notes S: Damon Garza is [...] Kate Castanon APRN.CNM documented in this encounter [facility] 04-08-2025 Instructions Yanely Krishnamurthy MA - 04/08/2025 4:29 PM EDT SEQUENTIAL SCREENINGS The [facility] offers sequential screenings for women who are [...] It will require an appointment with our aviation survival technician. This is not an ultrasound performed [...] the above symptoms, contact our office at [phone] and ask to speak with a nurse. After hours, you can call doctors registry at [phone] OR call [facility] at [phone] and ask to have the doctor production wood craftsman paged. If you consider this an emergency, dial 9-1-8 or go to your nearest emergency department. NEED HELP? Are you dealing with a violent or abusive relationship? Are you a victim of rape or sexual assult? Call [facility] ([place]) 24 hour Crisis Hotline: 913.193.5392 or 424-032-0319. MANUAL Your Guide to a Healthy manual is now on-line. Visit [email or web address] [email or web address] to download your free copy documented in this encounter [facility] [facility] Note HNO ID: [id number] Author: DOMINICK PAIZ, ? Service: ? Author Type: Patient Adult Probation Officer Type: Progress Notes Filed: 04/05/2025 08:20 Note Text: POPULATION HEALTH NAVIGATION OUTREACH Action/FYI 3rd attempt left message to add business risk consultant to ob provider field Est care and scheduled PP to pcp Reason for Outreach Medicaid OB/Peds Care Gaps due: to PCP Visit Patient Contacted: Unable or unnecessary to reach patient: Unable to reach patient Left message Navigation Signature: Dominick Paiz Population Health Navigator April 05, 2025 8:19 AM [facility] 04-04-2025 Note HNO ID: [id number] Author: DOMINICK PAIZ, ? Service: ? Author Type: Patient Adult Probation Officer Type: Progress Notes Filed: 04/04/2025 08:41 Note Text: POPULATION HEALTH NAVIGATION OUTREACH Action/FYI Unable to reach patient to add business risk consultant and PP to PCP Reason for Outreach Medicaid OB/Peds Care Gaps due: to PCP Visit Patient Contacted: Unable or unnecessary to reach patient: Unable to reach patient Unable to leave message MyChart message sent Navigation Signature: Dominick Paiz Population Health Navigator April 04, 2025 8:40 AM [facility] 04-04-2025 History of Presen t illness Narrative POPULATION HEALTH NAVIGATION OUTREACH Action/I Unable to reach patient to add business risk consultant and PP to PCP Reason for Outreach Medicaid OB/Peds Care Gaps due: to PCP Visit Patient Contacted: Unable or unnecessary to reach patient: Unable to reach patient Unable to leave message NurseBuddy message sent Navigation Signature: Dominick Paiz Population Health Navigator April 04, 2025 8:40 AM documented in this encounter [facility] 04-04-2025 Note Patient Outreach (NE TNAV) DAMON GARZA ([id number]) 5 F Date Time Provider Department 04/04/25 DOMINICK PAIZ During your visit today, we recorded the following information about you: Dominick Paiz 04/04/2025 8:41 AM Signed POPULATION HEALTH NAVIGATION OUTREACH Action/ Unable to reach patient to add business risk consultant and PP to PCP Reason for Outreach Medicaid OB/Peds Care Gaps due: to PCP Visit Patient Contacted: Unable or unnecessary to reach patient: Unable to reach patient Unable to leave message NurseBuddy message sent Navigation Signature: Dominick Paiz Population Health Navigator April 04, 2025 8:40 AM Dominick Paiz 04/05/2025 8:20 AM Signed POPULATION HEALTH NAVIGATION OUTREACH Action/FYI 3rd attempt left message to add business risk consultant to ob provider field Est care and [...] 1 tablet by mouth once daily. - Rtfssbax-Kc-Glw-Fe-FA tab Take 1 tablet by mouth once daily. Problem List As Of Date 04/04/2025 Noted Resolved Supervision of high risk in third tri*12/06/2024 Late care [O09.30] 12/06/2024 Rubella non-immune status, antepartum [O09.899,*12/08/2024 Muscular ventricular septal defect (HCC) [Q21.0]12/15/2024 Group beta Strep positive [B95.1] 03/23/2025 Encounter Status:Closed by DOMINICK PAIZ on 04/04/25 [facility] 03-30-2025 Progress note Formatting of t [...] RTO in 1 week Wanda Gardiner APRN.CNM [facility] 03-30-2025 Miscellaneous Notes BARRETT-S: Damon Garza is [...] Wanda Gardiner APRN.CNM documented in this encounter [facility] 03-30-2025 Note HNO ID: [id number] Author: WANDA GARDINER APRN.CNM Service: ? Author Type: Hansard Reporter Type: Progress Notes Filed: 03/30/2025 10:10 Note Text: BARRETT- [facility] 03-30-2025 History of Presen t illness Narrative BARRETT- documented in this encounter [facility] 03-30-2025 Instructions Gia Russo MA - 03/30/2025 9:43 AM EDT SEQUENTIAL SCREENINGS The [facility] offers sequential screenings for women who are [...] It will require an appointment with our aviation survival technician. This is not an ultrasound performed [...] the above symptoms, contact our office at [phone] and ask to speak with a nurse. After hours, you can call doctors registry at [phone] OR call [facility] at [phone] and ask to have the doctor production wood craftsman paged. If you consider this an emergency, dial 9-1-9 or go to your nearest emergency department. NEED HELP? Are you dealing with a violent or abusive relationship? Are you a victim of rape or sexual assult? Call [facility] ([place]) 24 hour Crisis Hotline: 802.827.7336 or 043-424-6516. MANUAL Your Guide to a Healthy manual is now on-line. Visit [email or web address] [email or web address] to download your free copy documented in this encounter [facility] 03-22-2025 Note Indication Evaluation of growth. Discrepancy [...] 5 oz EFW by: Hadlock (HC-AC-FL) Extended Offset Printing Operator 3.7 mm Extremities / Bony Struc [place] [...] M.D. [facility] 03-21-2025 Note HNO ID: [id number] Author: MUMTAZ MORALES APRN.MOSHGIACH Service: ? Author Type: Nurse Practitioner Type: [...] Supervision of high risk in third trimester ([facility]) - ICD9: V23.9, ICD10: O09.93 (primary diagnosis) - Continue PNV and LDA 2. 36 weeks gestation of ([facility]) - ICD9: V22.2, ICD10: Z3A.36 - GBS today 3. Muscular ventricular septal defect ([facility]) - ICD9: 745.4, ICD10: Q21.0 - Cleared for delivery at [facility] 4. Uterine size-date discrepancy, third trimester ([facility]) - ICD9: 649.63, ICD10: O26.843 - S labor precautions and kick counts reviewed. RTO 1 in week or sooner as needed. Mumtaz Morales APRN.MOSHGIACH [facility] 03-21-2025 History of Presen t illness [...] Supervision of high risk in third trimester ([facility]) - ICD9: V23.9, ICD10: O09.93 (primary diagnosis) - Continue PNV and LDA 2. 36 weeks gestation of ([facility]) - ICD9: V22.2, ICD10: Z3A.36 - GBS today - ultrasound 3. Muscular ventricular septal defect (HCC) - ICD9: 745.4, ICD10: Q21.0 - Cleared for delivery at [facility] 4. Uterine size-date discrepancy, third trimester ([facility]) - ICD9: 649.63, ICD10: O26.843 - S<D, growth ordered labor precautions and kick counts reviewed. RTO 1 in week or sooner as needed. Mumtaz Morales APRN.MOSHGIACH documented in this encounter [facility] 03-21-2025 Instructions Yanely Krishnamurthy MA - 03/21/2025 7:58 AM EDT SEQUENTIAL SCREENINGS The [facility] offers sequential screenings for women who are [...] It will require an appointment with our aviation survival technician. This is not an ultrasound performed [...] the above symptoms, contact our office at [phone] and ask to speak with a nurse. After hours, you can [facility] at [phone] OR call [facility] at [phone] and ask to have the doctor production wood craftsman paged. If you consider this an emergency, dial 9-1-5 or go to your nearest emergency department. NEED HELP? Are you dealing with a violent or abusive relationship? Are you a victim of rape or sexual assult? Call [facility] ([place]) 24 hour Crisis Hotline: 829.918.2396 or 631-695-1908. MANUAL Your Guide to a Healthy manual is now on-line. Visit [email or web address] [email or web address] to download your free copy documented in this encounter [facility] 03-16-2025 Progress note Formatting of t his [...] at [facility] precautions and kick counts reviewed - RTO 1 week or sooner if needed Kate Castanon APRN.CNM [facility] 03-16-2025 Miscellaneous Notes S: Damon Garza is [...] Kate Castanon APRN.CNM documented in this encounter [facility] 03-16-2025 Instructions Bessy Willis MA - 03/16/2025 1:17 PM EDT SEQUENTIAL SCREENINGS The [facility] offers sequential screenings for women who are [...] It will require an appointment with our aviation survival technician. This is not an ultrasound performed [...] the above symptoms, contact our office at [phone] and ask to speak with a nurse. After hours, you can call doctors registry at [phone] OR call [facility] at [phone] and ask to have the doctor production wood craftsman paged. If you consider this an emergency, dial or go to your nearest emergency department. NEED HELP? Are you dealing with a violent or abusive relationship? Are you a victim of rape or sexual assult? Call [facility] ([facility] 24 hour Crisis Hotline: 393.403.1396 or 445-768-5314. MANUAL Your Guide to a Healthy manual is now on-line. Visit [email or web address] [email or web address] to download your free copy documented in this encounter [facility] 03-08-2025 Telephone encounter Note 2nd risk assessment form submitted 03/08/25 Danna Olivera RN [facility] 03-08-2025 Miscellaneous Notes 2nd risk assessment form submitted 03/08/25 Danna Olivera RN documented in this encounter [facility] 03-02-2025 Note HNO ID: [id number] Author: GINGER SORIANO MD Service: ? Author Type: Physician Type: Progress Notes Filed: 03/02/2025 10:11 Note Text: Dr. Destini Langley NAME: Damon Garza CLINIC Number.: [id number] Date of : 2005 Date of Visit: [...] aorta, were explained. Delivery is planned in [place]. If there is a murmur or other [...] which included preparing to see the patient, phtn-bm-ccmj patient care, completing clinical documentation, obtaining and/or reviewing separately obtained history, performing a medically appropriate examination, counseling and educating the patient/family/caregiver, ordering medications, tests, or procedures, communicating with other HCPs (not separately reported), independently interpreting results (not separately reported), communicating results to the patient/family/caregiver, and care coordination (not separately reported). Sincerely, Dr. Ginger Soriano [facility] 01-25-2025 Note HNO ID: [id number] Author: KAYDEN ACEVEDO MA Service: ? Author Type: Project Manager Process Development Type: Progress Notes Filed: 01/25/2025 12:21 Note [...] severely ill: Yes Patient denies history of Guillain-Ash[place] Syndrome (a severe paralytic illness): Yes Tdap Adacel injection was given without incident. See immunizations for details of immunizations administered today. VIS sheet provided: Yes Provider Wanda Gardiner APRN CNM was present in office at time of injection. Kayden Acevedo MA [facility] 01-25-2025 History of Presen t illness [...] severely ill: Yes Patient denies history of Guillain-[place] Syndrome (a severe paralytic illness): Yes Tdap [...] Wanda Gardiner APRN.CNM documented in this encounter [facility] 01-25-2025 Note HNO ID: [id number] Author: WANDA GARDINER APRN.CNM Service: ? Author Type: Hansard Reporter Type: Progress Notes Filed: 01/25/2025 12:21 Note [...] or sooner if needed Wanda Gardiner APRN.CNM [facility] 01-13-2025 Telephone encounter Note 2nd risk assessment form submitted 01/13/25 Danna Olivera RN [facility] 01-13-2025 Miscellaneous Notes 2nd risk assessment form submitted 01/13/25 Danna Olivera RN documented in this encounter [facility] 01-11-2025 Progress note Formatting of t his [...] PTL & FM precautions Destini Langley MD [facility] 01-11-2025 Miscellaneous Notes KJ - S: Damon [...] Destini Langley MD documented in this encounter [facility] 01-11-2025 Instructions Bessy Willis MA - 01/11/2025 9:54 AM EDT SEQUENTIAL SCREENINGS The [facility] offers sequential screenings for women who are [...] It will require an appointment with our aviation survival technician. This is not an ultrasound performed [...] the above symptoms, contact our office at [phone] and ask to speak with a nurse. After hours, you can call doctors registry at [phone] OR call [facility] at [phone] and ask to have the doctor production wood craftsman paged. If you consider this an emergency, dial 9-5-7 or go to your nearest emergency department. NEED HELP? Are you dealing with a violent or abusive relationship? Are you a victim of rape or sexual assult? Call [facility] ([place]) 24 hour Crisis Hotline: 165.895.5633 or 556-491-0291. MANUAL Your Guide to a Healthy manual is now on-line. Visit [email or web address] [email or web address] to download your free copy documented in this encounter [facility] 12-14-2024 Note Addended by: ALBERTO FINCH on: 12/14/2024 04:22 PM Modules accepted: Orders [facility] 12-14-2024 Miscellaneous Notes Addended by: ALBERTO FINCH on: 12/14/2024 04:22 PM Modules accepted: Orders documented in this encounter [facility] 12-14-2024 Note HNO ID: [id number] Author: ALBERTO FINCH MD Service: ? Author Type: Physician Type: Progress Notes Filed: 12/14/2024 15:42 Note Text: Patient here for routine anatomy scan. See ultrasound report for details. [facility] 12-14-2024 History of Presen t illness Narrative Patient here for routine anatomy scan. See ultrasound report for details. [facility] documented in this encounter [facility] 12-07-2024 Telephone encounter Note 1st risk assessment form submitted 12/07/2024. Natalya Mendoza RN [facility] 12-07-2024 Miscellaneous Notes 1st risk assessment form submitted 12/07/2024. Natalya Mendoza RN documented in this encounter [facility] 12-06-2024 Progress note Formatting of t his note might be different from the original. Patient is at 21.1 weeks gestation here for NOB. This is patient's first visit. Seen in early by support center and had ultrasound completed. Needs labs and anatomy US. Proof of letter provided for [facility] services. Kate Castanon APRN.CNM [facility] 12-06-2024 Miscellaneous Notes Patient is at 21.1 weeks gestation here for NOB. This is patient's first visit. Seen in early by support center and had ultrasound completed. Needs labs and anatomy US. Proof of letter provided for [facility] services. Kate Castanon APRN.CNM documented in this encounter [facility] 12-06-2024 Note HNO ID: [id number] Author: KATE CASTANON APRN.CNM Service: ? Author Type: Hansard Reporter Type: Progress Notes Filed: 12/06/2024 13:40 Note Text: NO POC US completed due to patient being 21 weeks gestation. 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 No pertinent past [...] discussed with the Patient or Patient's Authorized Flux Tube Attendant. As applicable, any other physician, advance practice provider, medical student, or other health professional student that will be observing or involved in the sensitive examination for educational or training purposes was discussed with the Patient or Authorized Flux Tube Attendant. The Patient or Authorized Flux Tube Attendant has agreed to proceed with the sensitive [...] Your guide to a health and the Underwear Welter. Reviewed midwifery and software developer intern services that are available. 2) Screening: Hemoglobin [...] IFRAH Castanon APRN.CNM documented in this encounter [facility] 12-03-2024 Note HNO ID: [id number] Author: KATE CASTANON APRN.CNM Service: ? 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 No pertinent past [...] discussed with the Patient or Patient's Authorized Flux Tube Attendant. As applicable, any other physician, advance practice provider, medical student, or other health professional student that will be observing or involved in the sensitive examination for e (more content not included)... [facility] 12-03-2024 Instructions Kayden Acevedo MA - 12/03/2024 12:56 PM EST Please select the following link to access the [facility] Your Guide to a Healthy . [email or web address] Please select the following link to access the [facility] Your Guide to a Healthy . [email or web address] documented in this encounter [facility] Evaluation note Diagnosis with uncertain dates, antepartum- Primary state, incidental 21 weeks gestation of state, incidental Encounter for supervision of high risk due to anomaly, second trimester High risk teen in second trimester Late care Insufficient care [facility] Encounter for routine screening for malformation using ultrasonics- Primary Ventricular septal defect (VSD) of fetus in [place] , antepartum 22 weeks gestation of state, incidental [facility] Diagnosis High risk teen in second trimester ([facility])- Primary Screening for diabetes mellitus Suspected anomaly, antepartum, single or unspecified fetus ([facility]) [facility] Diagnosis Encounter for supervision of high risk due to anomaly, second trimester ([facility])- Primary Late care ([facility]) Insufficient care 28 weeks gestation of ([facility]) state, incidental Muscular ventricular septal defect ([facility]) Ventricular septal defect Rubella non-immune status, antepartum ([facility]) Other specified complication, antepartum Need for vaccination Need for prophylactic vaccination and inoculation against unspecified single disease [facility] Diagnosis 35 weeks gestation of ([facility])- Primary state, incidental Supervision of high risk in third trimester ([facility]) Unspecified high-risk Encounter for supervision of high risk due to anomaly, second trimester ([facility]) Muscular ventricular septal defect ([facility]) Ventricular septal defect [facility]* Diagnosis Supervision of high risk in third trimester ([facility])- Primary Unspecified high-risk 36 weeks gestation of ([facility]) state, incidental Muscular ventricular septal defect ([facility]) Ventricular septal defect Uterine size-date discrepancy, third trimester ([facility]) [facility] Diagnosis Supervision of high risk in third trimester ([facility]) Unspecified high-risk 36 weeks gestation of ([facility]) state, incidental Muscular ventricular septal defect ([facility]) Ventricular septal defect Uterine size-date discrepancy, third trimester ([facility]) [facility] Diagnosis Encounter for supervision of high risk due to anomaly, second trimester ([facility])- Primary [facility] Diagnosis Supervision of high risk in third trimester ([facility])- Primary Unspecified high-risk 37 weeks gestation of ([facility]) state, incidental Uterine size-date discrepancy, third trimester ([facility]) Late care ([facility]) Insufficient care Group beta Strep positive Muscular ventricular septal defect ([facility]) Ventricular septal defect [facility] Diagnosis Supervision of high risk in third trimester ([facility])- Primary Unspecified high-risk Uterine size-date discrepancy, third trimester ([facility]) Group beta Strep positive Muscular ventricular septal defect (HCC) Ventricular septal defect 38 weeks gestation of (HCC) state, incidental documented in this encounter [facility] for visit Narrative* Diagnostic Procedure Only (Routine) - Closed Specialty Diagnoses / Procedures Referred By Agus randhawa Referred To Contact [facility] Diagnoses with uncertain dates, antepartum Procedures OBSTETRIC ULTRASOUND WHI US PREG UTERUS AFTER 1ST TRIMEST GESTATION Kate Castanon APRN.[facility] [address] [place] [address] Phone: tel: fax: [facility] [address] [place] [address] Referral ID Status Reason Start Date Expiration Date V isits Requested Visits Authorized [id number] Closed Auto-Generate d Referral 12/06/2024 12/06/2025 1 1 [facility] Summary Purpose Family History No Family History Records FoundNo Family History Records FoundNo Family History Records FoundNo Family History Records Found Advance Directives No Advanced Directives Records FoundNo Advanced Directives Records FoundNo Advanced Directives Records FoundNo Advanced Directives Records Found Additional Source Comments INFORMATION SOURCE (unrecogn ized section and content) DATE CREATED AUTHOR 01/29/2023 [facility] DATE CREATED AUTHOR AUTHOR'S ORGANIZ ATION 12/26/2024 [facility] DATE CREATED AUTHOR AUTHOR'S ORGANIZ ATION 03/02/2025 [facility] DATE CREATED AUTHOR AUTHOR'S ORGANIZ ATION 04/06/2025 [facility] Source Comments (unrecognize d section and content) In the event this informatio n is protected by the Federal Confidentiality of Alcohol and Drug Abuse Patient Records regulations: The Federal rules restrict any use of the information to criminally investigate or prosecute any alcohol or drug abuse patient.[facility] the event this information is protected by the Federal Confidentiality of Alcohol and Drug Abuse Patient Records regulations: The Federal rules restrict any use of the information to criminally investigate or prosecute any alcohol or drug abuse patient.[facility] the event this information is protected by the Federal Confidentiality of Alcohol and Drug Abuse Patient Records regulations: The Federal rules restrict any use of the information to criminally investigate or prosecute any alcohol or drug abuse patient.[facility] the event this information is protected by the Federal Confidentiality of Alcohol and Drug Abuse Patient Records regulations: The Federal rules restrict any use of the information to criminally investigate or prosecute any alcohol or drug abuse patient.[facility] the event this information is protected by the Federal Confidentiality of Alcohol and Drug Abuse Patient Records regulations: The Federal rules restrict any use of the information to criminally investigate or prosecute any alcohol or drug abuse patient.[facility] the event this information is protected by the Federal Confidentiality of Alcohol and Drug Abuse Patient Records regulations: The Federal rules restrict any use of the information to criminally investigate or prosecute any alcohol or drug abuse patient.[facility] the event this information is protected by the Federal Confidentiality of Alcohol and Drug Abuse Patient Records regulations: The Federal rules restrict any use of the information to criminally investigate or prosecute any alcohol or drug abuse patient.[facility] the event this information is protected by the Federal Confidentiality of Alcohol and Drug Abuse Patient Records regulations: The Federal rules restrict any use of the information to criminally investigate or prosecute any alcohol or drug abuse patient.[facility] CenterIn the event this information is protected by the Federal Confidentiality of Alcohol and Drug Abuse Patient Records regulations: The Federal rules restrict any use of the information to criminally investigate or prosecute any alcohol or drug abuse patient.[facility] CenterIn the event this information is protected by the Federal Confidentiality of Alcohol and Drug Abuse Patient Records regulations: The Federal rules restrict any use of the information to criminally investigate or prosecute any alcohol or drug abuse patient.[facility] CenterIn the event this information is protected by the Federal Confidentiality of Alcohol and Drug Abuse Patient Records regulations: The Federal rules restrict any use of the information to criminally investigate or prosecute any alcohol or drug abuse patient.[facility] CenterIn the event this information is protected by the Federal Confidentiality of Alcohol and Drug Abuse Patient Records regulations: The Federal rules restrict any use of the information to criminally investigate or prosecute any alcohol or drug abuse patient.[facility] CenterIn the event this information is protected by the Federal Confidentiality of Alcohol and Drug Abuse Patient Records regulations: The Federal rules restrict any use of the information to criminally investigate or prosecute any alcohol or drug abuse patient.[facility] CenterIn the event this information is protected by the Federal Confidentiality of Alcohol and Drug Abuse Patient Records regulations: The Federal rules restrict any use of the information to criminally investigate or prosecute any alcohol or drug abuse patient.[facility] Reason for Visit (unrecogniz ed section and content) Reason Comments Initial OB Visit Reason Comments Shake Packer - 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 [address] Phone: tel: fax: [facility] [address] [place] [address] Referral ID Status Reason Start Date Expiration Date V isits Requested Visits Authorized [id number] Closed Auto-Generate d Referral 03/21/2025 03/21/2026 1 [...] BE BASED ON THE PRIMARY CLINICAL RECORDS. [employer] provides no warranty or guarantee of the accuracy or completeness of information in this document.
[2025-04-09] MEDS: Lactated Ringers 1,000 ML 999 ML IV (12:15)
[2025-04-09] MEDS: Penicillin G Pot 5,000,000 UNITS in 0.9% Normal Saline (100mL MB+) 100 ML 150 UNITS IV (12:26)
[2025-04-09 12:37] LABS: Absolute Lymphocyte Count 1.43 X10^3/uL (0.83-4.51); Absolute Neutrophil Count 5.8 X10^3/uL (2.0-7.7); Basophil# 0.04 X10^3/uL; Basophil% 0.5 % (0-1); Eosinophil# 0.04 X10^3/uL; Eosinophils% 0.5 % (0-5); Hematocrit 34.3 % (37-47); Hemoglobin 12.1 g/dL (12.0-15.0); Lymphocyte # 1.43 X10^3/ul (0.83-4.51); Lymphocyte % 18.6 % (19-41); Mean Corp Hgb Conc 35.3 g/dL (32-36); Mean Corpuscular Hgb 29.4 pg (27.0-32.0); Mean Corpuscular Volume 83.5 fL (81-99); Mean Platelet Vol. 9.7 fl (6.2-12.0); Monocyte# 0.34 X10^3/uL; Monocyte% 4.4 % (0-10); NRBC Flagged by Analyzer 0 % (0-5); Neutrophil # 5.81 X10^3/uL (2.7-7.7); Neutrophil % 75.7 % (47-70); Platelet Count 284 K/mm3 (150-450); RBC Distribution Width CV 12.8 % (11.6-14.6); RBC Distribution Width SD 38.4 fl (35.1-43.9); Red Blood Count 4.11 M/mm3 (4.2-5.4); White Blood Count 7.7 K/mm3 (4.4-11.0)
[2025-04-09] MEDS: Ondansetron 4 MG/2 ML Vial IV (13:13)
[2025-04-09 13:14] LABS: Syphilis Antibodies Nonreactive (Nonreactive)
[2025-04-09] MEDS: Lactated Ringers 1,000 ML 200 ML IV (13:17)
[2025-04-09] MEDS: fentaNYL-bupivacaine (epidural) 100 ML BAG EPIDURAL (13:32)
[2025-04-09] MEDS: Penicillin G 3,000,000 Units 50 ML 100 UNITS IV (16:16)
[2025-04-09 17:20] LABS: Amphetamine Urine NEGATIVE (<1000 ng/mL); Barbiturate Urine NEGATIVE (< 200 ng/mL); Benzodiazepine Urine NEGATIVE (< 200 ng/mL); Buprenorphine Urine NEGATIVE (< 200 ng/mL); Cocaine Urine NEGATIVE (< 300 ng/mL); Fentanyl, Urine NEGATIVE; Methadone Urine NEGATIVE (< 300 ng/mL); Opiates Urine NEGATIVE (< 300 ng/mL); Oxycodone, Urine NEGATIVE (< 100 ng/mL); PCP Urine NEGATIVE (< 25 ng/mL); THC Urine NEGATIVE (< 50 ng/mL)
[2025-04-09] MEDS: Oxytocin 15 Units/NS 250ml 15 UNITS/250 ML IV.SOLN 334 UNITS IV (18:45)
--- NOTE | 2025-04-09 19:05 | EX.PCM.OBVAG ---
Assessment & Plan (1) (spontaneous vaginal delivery): (2) Spontaneous onset of labor: (3) 38 weeks gestation of : (4) High-risk in third trimester: (5) Single live : (6) Second degree perineal laceration: Maternal Data Information Final PRETTY: 04/17/25 Gestational age: 38 6/7 Vaginal Delivery Maternal Presentation Maternal Presentation: Active Labor Vaginal Delivery Information Procedure Performed: Spontaneous Vaginal Delivery Surgeon/Practitioner: Rachele Rao Date of Procedure: 04/09/25 Pre-Procedure Diagnosis: labor Post-Procedure Diagnosis: same Type of anesthesia: Epidural Estimated Blood Loss: 300 Time of Delivery: 18:45 Findings Description of procedure: A vigorous female was delivered IRMA over a second-degree perineal laceration. The remainder the infant was delivered with maternal pushing and gentle traction only in less than 15 seconds. The Pitocin infusion was initiated for active management of the third stage. The cord was clamped and cut after 1 minute. The infant was attended to by the waiting nursing staff. The placenta was delivered spontaneously and intact. The cervix and vagina were intact. The second-degree perineal laceration was repaired with 2-0 Vicryl suture in a running standard fashion. Sponge and needle counts were correct. A vaginal sweep was completed by me. Procedure findings: Vigorous female Presentation: IRMA Amniotic Membrane Rupture Type: Artificial Amniotic Fluid Description: Clear Placental Delivery Description: Spontaneous Placenta Disposition: [facility] Specimen collected: No Cord Vessel Description: 3 Vessels Cord Entanglement: None Infant A Gender: Female ([facility]) (1 minute): 8 (5 minute): 9 Delayed Cord Clamping: Yes Negative Checker real estate economist: No Post Vaginal Deli Medications given after delivery: IV Pitocin Episiotomy Description: None Laceration: 2nd degree Complication Complications: No
--- NOTE | 2025-04-09 19:08 | PCM.HP.BLA ---
History and Physical Date of Admission: 04/09/25 19-year-old 1 para 0 who presents at 38-6/7 weeks complaining contractions starting at approximately 1 PM when she woke up today. She denied any gross vaginal bleeding or leaking of fluid. She arrived to labor and delivery and was found to be in active labor. complicated today by late care. She is rubella nonimmune. Group B strep positive. History of THC use in the past but patient denies use during . Consents for urine tox screen. Past medical history none past surgical history none No known drug allergies Home medications aspirin and vitamin is also significant for echocardiogram gram suggests mid muscular muscular ventricular septal defect is possible that this may resolve by delivery and pediatricians approved delivery at [place] Assessment & Plan Assessment/Plan (1) Spontaneous onset of labor: (2) 38 weeks gestation of : (3) High-risk in third trimester: PLAN: Plan May have routine pain control measures as needed in labor. Urine tox screen ordered. Estimated weight is less than 4000 g clinically and pelvis clinically adequate to expect vaginal delivery.
[2025-04-09] MEDS: Oxytocin 15 Units/NS 250ml 15 UNITS/250 ML IV.SOLN 83 UNITS IV (19:15)
[2025-04-10 00:10] VITALS: BP 111/72; PULSE 82; RESP 16; TEMP 37; O2SAT 97
[2025-04-10 03:30] VITALS: BP 105/66; PULSE 82; RESP 16; TEMP 36.5; O2SAT 98
[2025-04-10 08:23] VITALS: BP 108/75; PULSE 70; RESP 16; TEMP 36.4; O2SAT 100
--- NOTE | 2025-04-10 11:05 | CASEMGMT ---
Social Work Assessment Labor and Delivery Unit Patient Address: [address] [place] [address]. [place] [address] Phone number: [phone] Date of Referral: 04/09/25 Time of Referral: 12:18 Referred By: Rachele Rao Date of Intervention: 04/10/25? Time of Intervention: 11:05 Reason for Referral:? FOB smokes THC History obtained from: Medical records and mother of baby (MOB). ? Household composition: MOB, daughter Danyell Rowell, born on 04/09/25 and ?s maternal grandmotherReny (MGM). Patient's parent/guardian status:? ?Patient and the father of baby (FOB; Demi Rowell, age 40) have been dating for ?almost a year? and are not and are not living together. MOB described a positive and supportive relationship with the FOB and denied any domestic violence. Medical History: ?: 1, Para, now 1. MOB received late care due to it taking a long time to get established with Medicaid. MOB reported she went to the Center in August and September and after that, Stripper And Taper verified that MOB received PNC through [facility] beginning at 21 weeks and 9 days. Visits after that were observed to be routine. Apgars: 8 and 9. Weight: 3075 grams. Lumber Planer: Dr. Aurea Menard. Educational Status: MOB denied any issues or concerns with reading or writing either with herself or with the FOB.? MOB reported she just graduated from High School where she earned her High School diploma. MOB reported she does not know the education status of the FOB. Financial Status: MOB is not able to financially provide independent housing for herself and at this time and is living with [facility]. MOB reported her income is sufficient to meet all other needs at this time with the assistance of Job [employer] Family Services. 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 MOB reported she doesn?t know if she gets 6 or 8 weeks of maternity leave. MOB reported the FOB is currently employed full-time as a [employer] truck driver. MOB denied any current housing insecurity. Supplies: MOB reported she has all of the supplies she needs for baby at this time including but not limited to: Car seat, bassinet, diapers, bottles, breast pump and clothing. Childcare/Caregiver(s): MOB identified herself as the primary caregiver and identified ?s MGM as the caregiver during times when the MOB is working. FOB will visit MOB and on his days off from work. ? Transportation:? 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 No transportation issues identified. Programs/Agencies Involved: [facility] has Medicaid through the Department of [employer] Family [employer]. MOB is also connected with WIC. ? Children Services/Legal Issues:? Denied. MOB not sure if [facility] has any previous Children Services involvement or legal involvement. Behavioral Health Issues: ??Mental Health History: MOB denied with either herself or with the FOB. ???Substance Use History: MOB reported that she and the FOB drink alcohol occasionally but denied any previous or current abuse.? MOB denied consuming alcohol while .? FOB smokes marijuana. MOB reported she used to smoke marijuana until she found out she was .? MOB reported she last used in July and has not used since. ?MOB reported she also used to vape however quit prior to getting and has not smoked or vaped since. ?Family History: MOB reported she thinks ?s MGM has a history of anxiety and depression and FOB?s family history is unknown. MOB denied any family history of drug or alcohol abuse on either side as best as she knowns. ?Drug Screens: ?MOB?s drug screens were negative. No drug screens on . ? Family/Social Stressors: MOB denied any current family/social stressors. Support Systems: MOB identified the FOB as a support as well as her mother and MOB?s best friend. ??? Depression/Shaken Baby/Safe Sleeping: beater worker helper provided verbal and written education on PPD, Safe Sleeping and Shaken Baby.? MOB verbalized an understanding. ??? ASSESSMENT:? MOB provided consent to social work visit. At the time of arrival, MOB was alone and was lying down in the hospital bed with at her beside who was sleeping. MOB was very cooperative and verbally engaged. MOB reported feeling safe around the FOB, denied any previous or current domestic violence, mental health or other drug or alcohol abuse concerns with either herself or the FOB. MOB does not appear to know the FOB or the FOB?s family that well.? When asked about the FOB?s side of the family, MOB reported that ?s paternal grandmother (PGM) is and MOB reported she thinks ?s paternal grandfather (PGF) may be as well.? MOB stated she wasn?t sure. MOB told this social services designee that the FOB has 3 biological children and 1 adoptive child however disclosed to her nurse that is the 9th child for the FOB. MOB stated the FOB was not able to be present for the of because he was working and didn?t get off until 2 or 3 am and may not come to the hospital today because he is also working today. MOB?s nurse shared that on the date of delivery, the MOB indicated that the FOB was supposed to get off of work around 6pm.? MOB?s nurse shared with social services designee that the MOB was alone for the majority of labor and at the end had an adult woman (unknown relationship) there for support. MOB had previously shared with social services designee that ?s MGM was there for the delivery. Nursing shared that no one else has been at the hospital to support the MOB and that the MOB has been alone most of the time. Safe Plan of Care for infant related to substance use: MOB reported she does not plan to begin using marijuana again now that she has delivered. Stripper And Taper provided verbal education about marijuana use and . Stripper And Taper also provided education about drug usage and supervision/care for and also to ensure with the FOB that any drugs and/or paraphernalia be out of reach and secured away from at all times which MOB reported she was agreeable to and understood. ?MOB reported that the FOB keeps his marijuana and paraphernalia locked up. PLAN:? Baby to be discharged home.? beater worker helper also provided written information on depression, depression resources and Help Me Grow. ?Per protocol, Stripper And Taper will make a referral to [facility] due to THC use during early . No other services requested or indicated. Natalya Quigley, COMPUTER TECHNICAL SUPPORT SPECIALIST, MANAGER NURSING HOME
--- NOTE | 2025-04-10 11:05 | CASEMGMT ---
Social Work Assessment Labor and Delivery Unit Patient Address: [address] [place] [address]. [place] [address] Phone number: [phone] Date of Referral: 04/09/25 Time of Referral: 12:18 Referred By: Rachele Rao Date of Intervention: 04/10/25? Time of Intervention: 11:05 Reason for Referral:? FOB smokes THC History obtained from: Medical records and mother of baby (MOB). ? Household composition: MOB, daughter Danyell Rowell, born on 04/09/25 and ?s maternal grandmotherReny (MGM). Patient's parent/guardian status:? ?Patient and the father of baby (FOB; Demi Rowell, age 40) have been dating for ?almost a year? and are not and are not living together. MOB described a positive and supportive relationship with the FOB and denied any domestic violence. Medical History: ?: 1, Para, now 1. MOB received late care due to it taking a long time to get established with Medicaid. MOB reported she went to the Center in August and September and after that, Gear Repairer verified that MOB received PNC through [facility] beginning at 21 weeks and 9 days. Visits after that were observed to be routine. Apgars: 8 and 9. Weight: 3075 grams. Back Tender Cylinder: Dr. Aurea Menard. Educational Status: MOB denied any issues or concerns with reading or writing either with herself or with the FOB.? MOB reported she just graduated from High School where she earned her High School diploma. MOB reported she does not know the education status of the FOB. Financial Status: MOB is not able to financially provide independent housing for herself and at this time and is living with [facility]. MOB reported her income is sufficient to meet all other needs at this time with the assistance of Job and Family Services. 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 MOB reported she doesn?t know if she gets 6 or 8 weeks of maternity leave. MOB reported the FOB is currently employed full-time as a tow-taxi truck driver. MOB denied any current housing insecurity. Supplies: MOB reported she has all of the supplies she needs for baby at this time including but not limited to: Car seat, bassinet, diapers, bottles, breast pump and clothing. Childcare/Caregiver(s): MOB identified herself as the primary caregiver and identified ?s MGM as the caregiver during times when the MOB is working. FOB will visit MOB and on his days off from work. ? Transportation:? 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 No transportation issues identified. Programs/Agencies Involved: [facility] has Medicaid through the Department of Job [employer] Family [employer]. MOB is also connected with WIC. ? Children Services/Legal Issues:? Denied. MOB not sure if [facility] has any previous Children Services involvement or legal involvement. Behavioral Health Issues: ??Mental Health History: MOB denied with either herself or with the FOB. ???Substance Use History: MOB reported that she and the FOB drink alcohol occasionally but denied any previous or current abuse.? MOB denied consuming alcohol while .? FOB smokes marijuana. MOB reported she used to smoke marijuana until she found out she was .? MOB reported she last used in July and has not used since. ?MOB reported she also used to vape however quit prior to getting and has not smoked or vaped since. ?Family History: MOB reported she thinks ?s MGM has a history of anxiety and depression and FOB?s family history is unknown. MOB denied any family history of drug or alcohol abuse on either side as best as she knowns. ?Drug Screens: ?MOB?s drug screens were negative. No drug screens on . ? Family/Social Stressors: MOB denied any current family/social stressors. Support Systems: MOB identified the FOB as a support as well as her mother and MOB?s best friend. ??? Depression/Shaken Baby/Safe Sleeping: community health outreach worker provided verbal and written education on PPD, Safe Sleeping and Shaken Baby.? MOB verbalized an understanding. ??? ASSESSMENT:? MOB provided consent to social work visit. At the time of arrival, MOB was alone and was lying down in the hospital bed with at her beside who was sleeping. MOB was very cooperative and verbally engaged. MOB reported feeling safe around the FOB, denied any previous or current domestic violence, mental health or other drug or alcohol abuse concerns with either herself or the FOB. MOB does not appear to know the FOB or the FOB?s family that well.? When asked about the FOB?s side of the family, MOB reported that ?s paternal grandmother (PGM) is and MOB reported she thinks ?s paternal grandfather (PGF) may be as well.? MOB stated she wasn?t sure. MOB told this social work program coordinator that the FOB has 3 biological children and 1 adoptive child however disclosed to her nurse that is the 9th child for the FOB. MOB stated the FOB was not able to be present for the of because he was working and didn?t get off until 2 or 3 am and may not come to the hospital today because he is also working today. MOB?s nurse shared that on the date of delivery, the MOB indicated that the FOB was supposed to get off of work around 6pm.? MOB?s nurse shared with social work program coordinator that the MOB was alone for the majority of labor and at the end had an adult woman (unknown relationship) there for support. MOB had previously shared with social work program coordinator that ?s MGM was there for the delivery. Nursing shared that no one else has been at the hospital to support the MOB and that the MOB has been alone most of the time. Safe Plan of Care for infant related to substance use: MOB reported she does not plan to begin using marijuana again now that she has delivered. Gear Repairer provided verbal education about marijuana use and . Gear Repairer also provided education about drug usage and supervision/care for and also to ensure with the FOB that any drugs and/or paraphernalia be out of reach and secured away from at all times which MOB reported she was agreeable to and understood. ?MOB reported that the FOB keeps his marijuana and paraphernalia locked up. PLAN:? Baby to be discharged home.? community health outreach worker also provided written information on depression, depression resources and Help Me Grow. ?Per protocol, Gear Repairer will make a referral to [facility] due to THC use during early . No other services requested or indicated. Natalya Quigley, CNA PER DIEM, PRODUCT MANAGEMENT ANALYST
--- NOTE | 2025-04-10 12:25 | CASEMGMT ---
Social Work Program Arranger made phone contact with Maty with [facility]. Program Arranger made a referral per protocol as mother of baby admitted to marijuana usage at the beginning of . No restrictions on discharge noted. Natalya Quigley, INTERNATIONAL NURSE, LOCK TENDER
[2025-04-10 12:42] VITALS: BP 112/78; PULSE 74; RESP 16; TEMP 36.4; O2SAT 100
[2025-04-10] MEDS: MEASLES,MUMPS,RUBELLA VACC/PF 0.5 ML SC (13:10)
--- NOTE | 2025-04-10 14:08 | PN_ITS ---
Progress Note Pain well-controlled average lochia Physical Exam Const alert and no apparent distress Narrative: Fundus firm, below umbilicus. Assessment & Plan Assessment/Plan (1) Second degree perineal laceration: (2) Single live : (3) (spontaneous vaginal delivery): PLAN: day #1 status post vaginal delivery. Working on breast-fee ding. Okay to discharge home later today if okay with pediatrics. Follow-up in the office in 1-2 and 6 weeks or as needed.
--- NOTE | 2025-04-10 14:08 | PCM.DC ---
Discharge Instructions Diet Discharge Diet: No restrictions DC O2, CPAP, BIPAP needs Home O2 Discharge instructions: No Dressing / Incision May resume sexual activity in: 6 weeks Dressing / Incision Call your doctor if your incision/area has: Continuous Slow Oozing, Sudden Increased Bleeding, Foul Smelling Discharge and Swelling at the incision site Call your doctor if you observe: Fever of 101 or Higher and Inability to urinate Follow Up Care Please Follow Up With: Rachele Rao MD When: Follow up with our office in 1-2 and 6 weeks or as needed. [phone] call or send a [employer] message to schedule or with questions. Test Results: Test results from this visit will be discussed in further detail at your follow-up appointment, if applicable. Discharge Plan Admission Admit Date/Time: 04/09/25 11:35 Primary Reason for Your Visit: Labor and delivery Attending Provider: Rachele Rao Primary Care Provider: Minda Haley NP Discharge Orders/Prescriptions Prescriptions: New ibuprofen 600 mg tablet 600 mg PO Q6H PRN (Reason: Pain) 10 Days Qty: 60 1RF Discontinued aspirin 81 mg tablet 81 mg PO DAILY No Action 28-800 mg-mcg tablet PO Referrals / Follow Up: Minda Haley NP, DIRECTOR INTELLIGENCE ANALYSIS PROGRAMS-C [Primary Care Provider] - Disposition Disposition (needs filled in before D/C Order can be placed): Home, Self Care
--- NOTE | 2025-04-10 15:25 | NURSING ---
This RN assuming care at this time.
[2025-04-10 16:12] VITALS: BP 100/55; PULSE 69; RESP 16; TEMP 36.3; O2SAT 98
[2025-04-10 19:35] VITALS: BP 115/82; PULSE 72; RESP 16; TEMP 36.6; O2SAT 98
[2025-04-10] MEDS: Benzocaine/Lanolin/Aloe Vera 85 GM Spray 1 SPRAY TOPICAL (21:02)
[2025-04-10] MEDS: Acetaminophen 500 MG Tablet 1000 MG PO (21:02)
[2025-04-10] MEDS: Ibuprofen 600 MG Tablet PO (21:02)
--- NOTE | 2025-04-12 14:48 | CASEMGMT ---
Labor and Delivery Social Work Brief Note Date: 04/12/25 Time: 14:45 Sw informed by bridal consultant that patient did present to unit for follow up appointment last evening. Sw informed that patient carried in to the office without a car seat, diaper bag and any other baby items. At that time patient had not gotten a / well check appointment scheduled with a associate professor of communication. also notes that patient was not able to report when baby had had her last wet diaper. Sw made note of these concerns and contacted [facility] and included these issues to list of concerns made by weekend social organization professor, Natalya Quigley. This social organization professor spoke to hotline screenerOwen. No other needs or concerns at this time. Leda Yang, DRILL SHARPENER OPERATOR, LOW PRESSURE BOILER TENDER
--- NOTE | 2025-04-20 09:20 | NURSING ---
Follow up phone call made, no answer, left voicemail
--- NOTE | 2025-05-02 10:14 | CASEMGMT ---
Brief Social Work Note Labor and Delivery Date: 05/02/25 Time: 1014 Sw received Mandated Customer Experience Intern letter indicating that referral made by ZULMA Quigley on 04/12/25 was screened in and assigned to mobile home lot utility worker, Ary Castellano ([phone]). No other needs or concerns at this time. VICENTA Gutierrez, FILENET P8 DEVELOPER
--- NOTE | 2025-05-14 18:35 | CASEMGMT ---
Social Work lubrication worker received written correspondence from [facility] dated 04/10/25 that the referral that was made by this hospice social worker was not accepted. Natalya Quigley, ELECTRIC RELAY TESTER, STARCHER AND TENTER RANGE FEEDER
== END 2025-04-10 21:30 | disposition home or self-care (01) | DRG 560 ==
LOC: WPOUT 11:39 → WP 11:40
PROVIDERS: Admitting Provider Obstetrics & Gynecology; PCP Nurse Practitioner Pediatrics; Referring Provider Obstetrics & Gynecology; Visit Provider Obstetrics & Gynecology
DX: O99.824 Streptococcus B carrier state complicating childbirth (principal); Z37.0 Single live birth; Z23 Encounter for immunization; O70.1 Second degree perineal laceration during delivery; Z3A.38 38 weeks gestation of pregnancy; Z87.898 Personal history of other specified conditions
CPT/HCPCS: 59025; 59050; 80307; 85025; 86780; 86850; 86900; 86901; 99221; G0378; J2405